=== PATIENT | male | born 1955 | race Caucasian/White ===

== ENCOUNTER 2017-11-16 20:18 | Observation (INO) | payer OTHER, MEDICAID, SELFPAY ==
[2017-11-16] VITALS (7 sets, daily range): BP systolic 111–137; BP diastolic 59–79; PULSE 71–80; RESP 12–16; TEMP 36.6–36.9; O2SAT 94–97; BMI 22.5; BMI 21.8
--- NOTE | 2017-11-16 20:44 | DI.RAD.S_ITS ---
PROCEDURE: XR CHEST 1V INDICATIONS: CP TECHNIQUE: One view of the chest was acquired. COMPARISON: [facility], , CHEST 1 VIEW, 12/24/2016, 19:14. FINDINGS: Surgical changes and devices: None. Lungs and pleura: No pleural effusions or pneumothorax. Lungs are clear. Mediastinum: Mediastinal contours appear normal. Heart size is normal. Bones and chest wall: No suspicious bony lesions. Overlying soft tissues appear unremarkable. IMPRESSION: No acute process. Dictated by: Bebo Serna M.D. on 11/16/2017 at 20:59 Approved by: Bebo Serna M.D. on 11/16/2017 at 21:03
[2017-11-16 20:51] LABS: Add Manual Diff / Slide Review NO; Eosinophils Percent Auto 3.2 % (2-4); Hematocrit 31.8 % (41-53); Hemoglobin 10.8 g/dL (13.5-17.5); Lymphocytes Percent Auto 13.2 % (25-40); Mean Corpuscular HGB Conc 34.1 % (30-36); Mean Corpuscular Hemoglobin 36.7 PG (26-34); Mean Corpuscular Volume 107.7 fL (80-100); Monocytes Percent Auto 14.7 % (3-14); Neutrophils Absolute Auto 5000 /uL (3000-5900); Neutrophils Percent Auto 66.9 % (50-75); Platelet Count 192 X10^3/uL (150-400); Red Blood Cell Count 2.95 X10^6/uL (4.5-5.9); Red Cell Distribution Width 15.1 % (11.6-14.8); White Blood Cell Count 7.5 X10^3/uL (4.5-11.0)
[2017-11-16] MEDS: SODIUM CHLORIDE 0.9% 1,000 ML 150 ML IV (21:00)
[2017-11-16 21:02] LABS: Alanine Aminotransferase 39 IU/L (21-72); Albumin 3.8 g/dL (3.5-5.0); Albumin Globulin Ratio 1.3 (1.0-2.8); Alkaline Phosphatase 188 U/L (38-126); Aspartate Aminotransferase 93 IU/L (17-59); BUN Creatinine Ratio 15.7 (6-22); Bilirubin Total 0.7 mg/dL (0.2-1.3); Blood Urea Nitrogen 11 mg/dL (9-20); Calcium 8.6 mg/dL (8.4-10.2); Carbon Dioxide 23 mmol/L (22-32); Chloride 106 mmol/L (98-107); Creatine Kinase 49 U/L (55-170); Estimated Glomerular Filt Rate > 60.0 mL/min (>60); Globulin 2.9 g/dL (1.7-4.1); Glucose 143 mg/dL (80-110); HEMOLYSIS < 15 (0-50); Lipase 350 U/L (23-300); Sodium 144 mmol/L (137-145); Total Protein 6.7 g/dL (6.3-8.2)
--- NOTE | 2017-11-16 21:02 | ED.CHESTPAIN ---
HPI - Chest Pain General Chief Complaint: Chest Pain Stated Complaint: chest pain Time Seen by Provider: 11/16/17 20:25 Source: patient and EMS Mode of arrival: EMS Limitations: no limitations History of Present Illness HPI narrative: Patient states that he began to have the chest pain while watching TV. He states the pain was left-sided and radiated down his left arm. It was associated with nausea, shortness of breath, and diaphoresis. He states he left his nitroglycerin and his 's car, and she did not get home for an hour and a half. Patient states that when she did get home he took 2 of his nitroglycerin, and it did not do any good. However, when the medics arrived, he took a spray of nitroglycerin from them and the pain immediately resolved. Patient states that now he is pain free. He states this has happened previously, and his own nitroglycerin did not work, but his pain resolved with a spray of nitroglycerin from the medics. He states he does have a history of coronary artery disease, but has never had an IA or stenting. 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 Related Data Home Medications Medication Instructions Recorded Confirmed ferrous sulfate [Iron (ferrous 325 mg PO BID #0 06/25/16 11/16/17 sulfate)] aspirin 324 mg PO QDAY #0 12/24/16 11/16/17 Previous Rx's Medication Instructions Recorded omeprazole 20 mg PO QDAY #30 tab 08/17/16 isosorbide mononitrate ER 30 mg 30 mg PO QAM #90 tab 07/22/17 tablet,extended release 24 hr nitroglycerin 0.4 mg sublingual 0.4 mg SUBLINGUAL Q DAY PRN PRN 07/29/17 tablet #30 tab spironolactone 100 mg tablet 100 mg PO Q DAY #30 tab 11/04/17 atorvastatin 40 mg tablet 40 mg PO HS #30 tab 11/15/17 metoprolol tartrate 50 mg tablet 50 mg PO BID #60 tab 11/15/17 ipratropium-albuterol [Combivent 1 puff INHALATION QID #4 gram 11/17/17 Respimat] Allergies Allergy/AdvReac Type Severity Reaction Status Date / Time No Known Drug Allergies Allergy Verified 11/15/17 14:31 Review of Systems Review of Systems All systems reviewed & are unremarkable except as noted in HPI and below Constitutional Denies chills, Denies fever(s), Denies lethargy and Denies weakness Comments: Diaphoresis Eyes Denies change in vision, Denies eye discharge, Denies irritation and Denies loss of vision ENT Ears, Nose, Mouth, and Throat: Denies change in voice, Denies neck pain and Denies sore throat Cardiovascular Reports chest pain, Denies irregular heart rhythm, Denies lightheadedness, Denies palpitations, Reports dyspnea, Denies dyspnea on exertion and Denies orthopnea Respiratory Denies cough, Reports dyspnea, Denies dyspnea on exertion and Denies wheezing Gastrointestinal Gastrointestinal: Denies abdominal pain, Denies change in bowel habits, Denies diarrhea, Reports nausea and Denies vomiting Genitourinary Denies hematuria, Denies flank pain, Denies urinary incontinence and Denies urinary urgency Musculoskeletal Denies neck pain Integumentary/Breasts Denies pruritus, Denies erythema, Denies rash and Denies wounds Neurologic Denies confusion, Denies loss of vision and Denies weakness Psychiatric Denies anxiety, Denies confusion, Denies depression, Denies homicidal ideation and Denies suicidal ideation Endocrine Denies palpitations Hematologic/Lymphatic Denies easy bruising Allergic/Immunologic Denies wheezing [facility] Medical History Right shoulder pain (Chronic) Hyperlipidemia (Chronic) Essential hypertension (01/03/15) Gastroesophageal reflux disease (01/03/15) Alcoholic cirrhosis of liver with ascites (01/03/15) Coronary artery disease involving [place] coronary artery of [place] heart with unstable angina pectoris (01/03/15) Esophageal varices in alcoholic cirrhosis (01/03/15) Chronic alcoholic gastritis with hemorrhage (08/17/16) Alcohol abuse (Chronic) Coronary artery disease (Chronic) Duodenal ulcer (Chronic) GERD (gastroesophageal reflux disease) (Chronic) Hepatic cirrhosis (Chronic) Anemia (Resolved) Bleeding esophageal varices (Resolved 12/2014) Upper GI bleed (Resolved 12/2014) Surgical History Hx of cardiac catheterization (Resolved 12/2014) Social History household members: spouse Smoking Status: Current every day smoker alcohol intake: current substance use type: marijuana Exam Initial Vital Signs Initial Vital Signs: Vital Signs Temperature 98.4 F 11/16/17 20:24 Pulse Rate 80 11/16/17 20:24 Respiratory Rate 12 11/16/17 20:24 Blood Pressure 137/79 11/16/17 20:24 Pulse Oximetry 97 11/16/17 20:24 Const General: cooperative and well developed Nutritional Appearance: well nourished Orientation: alert, awake, oriented x3 and not confused HENOH Head: normocephalic and atraumatic Ears: external ears normal Nose: external nose normal and No nasal discharge Face and sinus: face symmetric and No dry mucous membranes Mouth: oral mucosae normal and moist mucous membranes Eyes General: appearance normal, both eyes and all related structures Eyelids: eyelids normal Conjunctivae: conjunctivae normal Sclera: sclerae normal Pupils: PERRL EOM: EOM intact bilaterally Neck Neck: normal visual inspection, trachea midline, No lymphadenopathy, No midline deformity and No JVD Lymphatic: No lymphedema Chest Chest: normal inspection of the chest Resp Effort & Inspection: normal respiratory effort, able to speak in complete sentences, no respiratory distress and no use of accessory muscles Auscultation: clear to auscultation bilaterally, no rales, no rhonchi and no wheezes Cardio Rate: regular rate Rhythm: regular rhythm Heart Sounds: no click, no gallops, no murmurs and no rubs Pulses: normal peripheral pulses GI Inspection: non-distended Palpation: soft, no hepatosplenomegaly, No guarding, No pulsatile mass and No tender Auscultation: normal bowel sounds Back/Spine/Pelvis Back: No CVA tenderness Cervical Spine: cervical ROM normal and No pain with cervical ROM Thoracic/Lumbar Spine: thoracic and lumbar spine normal to inspection Skin General: no rashes or lesions noted, No jaundice and No petechiae Neuro General: alert, oriented x3, gait normal and no focal motor deficits Speech: speech normal Extrem General: full ROM, no clubbing, cyanosis or edema, no pedal edema and no calf tenderness Psych Appearance: well kempt Mental Status: mental status grossly normal Attitude: cooperative Thought Content: normal and suicidality Judgment: judgment good Course Course Narrative: Patient's presentation was concerning for a coronary event, and even though he had a history of angina and did respond to nitroglycerin, I was concerned that he did not have access to his nitroglycerin for 90 min, and his symptoms were ongoing. I did work him up, and workup was found to be negative initially. However, I did feel he should be admitted to the hospital for completion of cardiac rule out. As such, I did speak with the hospitalist, who agreed to admit the patient to his service. Orders Ordered: Discontinued Medications Acetaminophen (Tylenol) 650 mg PO Q6HR PRN PRN Reason: As Needed for Fever/Mild Pain Albuterol (Ventolin) 2.5 mg INH NOW ONE Stop: 11/17/17 17:07 Last Admin: 11/17/17 17:29 Dose: 2.5 mg Aspirin (Aspirin Chew) 324 mg PO NOW ONE Stop: 11/16/17 20:45 Last Admin: 11/16/17 21:06 Dose: Aspirin (Aspirin Ec) 325 mg PO DAILY [facility] Last Admin: 11/17/17 08:25 Dose: 325 mg Atorvastatin Calcium (Lipitor) 40 mg PO BEDTIME [facility] Bisacodyl (Dulcolax) 10 mg MS DAILY PRN PRN Reason: Constipation Enoxaparin Sodium (Lovenox) 40 mg SUBCUT DAILY [facility] Last Admin: 11/17/17 08:25 Dose: 40 mg Sodium Chloride (Normal Saline 0.9%) 1,000 mls @ 150 mls/hr IV CONT [facility] Stop: 11/17/17 00:02 Last Admin: 11/16/17 21:00 Dose: 150 mls/hr Sodium Chloride (Normal Saline 0.9%) 1,000 mls @ 100 mls/hr IV CONT [facility] Last Admin: 11/16/17 23:56 Dose: 100 mls/hr Isosorbide Mononitrate (Imdur) 30 mg PO DAILY [facility] Metoprolol Tartrate (Lopressor) 50 mg PO BID MAREK Nitroglycerin (Nitro-Bid) 1 inch TOP TID [facility] Last Admin: 11/17/17 17:29 Dose: Not Given Admin: 11/17/17 08:25 Dose: 1 inch Admin: 11/16/17 23:56 Dose: 1 inch Nitroglycerin (Nitrostat) 0.4 mg SL [id number] PRN PRN Reason: Chest Pain Non-Formulary Medication (Patient's Own Medication) 0 each PO DAILY [facility] Ondansetron HCl (Zofran Odt) 4 mg PO Q8HR PRN PRN Reason: Nausea And Vomiting Ondansetron HCl (Zofran) 4 mg IV Q8HR PRN PRN Reason: Nausea And Vomiting Pantoprazole Sodium (Protonix) 40 mg PO 0700 [facility] Last Admin: 11/17/17 09:37 Dose: Pantoprazole Sodium (Protonix) 40 mg PO 0600 [facility] Last Admin: 11/17/17 09:31 Dose: 40 mg Spironolactone (Aldactone) 100 mg PO DAILY [facility] Vital Signs - 8 hr 11/16/17 20:24 11/16/17 20:26 Temperature 98.4 F 98.4 F Pulse Rate 80 80 Respiratory Rate 12 12 Blood Pressure 136/79 Blood Pressure [Left Arm] 137/79 Pulse Oximetry 97 97 MDM - Chest Pain Medical Records Data Attestation: I reviewed the patient's medical records. Lab Data Attestation: I reviewed the patient's lab results. Result diagrams: 11/16/17 Unknown 11/16/17 Unknown Lab Results 11/16/17 11/16/17 11/17/17 Range/Units Unknown Unknown 05:00 WBC 7.5 (4.5-11.0) X10^3/uL RBC 2.95 L (4.5-5.9) X10^6/uL Hgb 10.8 L (13.5-17.5) g/dL Hct 31.8 L (41-53) % MCV 107.7 H (80-100) fL MCH 36.7 H (26-34) PG MCHC 34.1 (30-36) % RDW 15.1 H (11.6-14.8) % Plt Count 192 (150-400) X10^3/uL Neut % (Auto) 66.9 (50-75) % Lymph % (Auto) 13.2 L (25-40) % [place] % (Auto) 14.7 H (3-14) % Eos % (Auto) 3.2 (2-4) % Baso % (Auto) 2.0 (0-2) % Neut # (Auto) 5000 (7870-4293) /uL Sodium 144 (137-145) mmol/L Potassium 4.0 (3.4-5.1) mmol/L Chloride 106 (98-107) mmol/L Carbon Dioxide 23 (22-32) mmol/L BUN 11 (9-20) mg/dL Creatinine 0.70 (0.66-1.25) mg/dL Estimated GFR > 60.0 (>60) mL/min BUN/Creatinine Ratio 15.7 (6-22) Glucose 143 H (80-110) mg/dL Calcium 8.6 (8.4-10.2) mg/dL Total Bilirubin 0.7 (0.2-1.3) mg/dL AST 93 H (17-59) IU/L ALT 39 (21-72) IU/L Alkaline Phosphatase 188 H (38-126) U/L Total Creatine Kinase 49 L 40 L (55-170) U/L Troponin I < 0.012 < 0.012 (0.01-0.034) ng/mL Total Protein 6.7 (6.3-8.2) g/dL Albumin 3.8 (3.5-5.0) g/dL Globulin 2.9 (1.7-4.1) g/dL Albumin/Globulin Ratio 1.3 (1.0-2.8) Lipase 350 H (23-300) U/L Imaging Data Chest x-ray: Attestation: I personally reviewed and interpreted this imaging study as follows: My impression: negative Radiologist's impression: PROCEDURE: XR CHEST 1V INDICATIONS: CP TECHNIQUE: One view of the chest was acquired. COMPARISON: [facility], CHEST 1 VIEW, 12/24/2016, 19:14. FINDINGS: Surgical changes and devices: None. Lungs and pleura: No pleural effusions or pneumothorax. Lungs are clear. Mediastinum: Mediastinal contours appear normal. Heart size is normal. Bones and chest wall: No suspicious bony lesions. Overlying soft tissues appear unremarkable. IMPRESSION: No acute process. Dictated by: Bebo Serna M.D. on 11/16/2017 at 20:59 Approved by: Bebo Serna M.D. on 11/16/2017 at 21:03 ECG Data Attestation: I personally reviewed and interpreted this ECG as follows: ( see below) Prior ECG tracings: not available for review Interpretation: 12 lead EKG performed on November 16, 2017 at 8:23 p.m.: Regular ventricular rhythm with a rate of 79 beats per min MS interval 169 milliseconds QRS duration 105 milliseconds QTC interval 460 milliseconds axis normal interpretation: Normal sinus rhythm, possible inferior myocardial infarction, probably old; borderline EKG interpreted by ED MD Discharge Plan Departure Patient Disposition: Admitted as Observation Clinical Impression: Chest pain Discharge Date/Time: 11/16/17 22:30 Interventions: ED Discharge Assessment Last Done: 11/16/17 22:30 Admit Date/Time: 11/16/17 22:15 Admit Provider: Pedro Pablo Briones
[2017-11-16 21:13] LABS: Troponin I < 0.012 ng/mL (0.01-0.034)
--- NOTE | 2017-11-16 23:22 | P.HP_ITS ---
History of Present Illness Date Patient Seen: 11/16/17 Time Patient Seen: 23:12 Chief complaint: chest pain Narrative: Patient is a 62 years of age male who notes the onset of chest pain at rest while watching TV. Patient notes the chest pain is in left upper chest region. A gripping chest tightness type sensation. Severity 6/10 was noted. No radiation of the pain to his jaw or his shoulder his arm. No associated nausea. No diaphoresis. Patient came to the emergency room for further eval. One spray of nitro appear to have addressed his discomfort fairly readily. Patient has prior history of atherosclerotic heart disease as noted by cardiac catheterization 4 years ago. Since that time patient has continued to smoke cigarettes. Patient also with history of cirrhosis of the liver and continues to drink alcohol. Patient History Comment: SOCIAL HISTORY PATIENT WAS WITH SIGNIFICANT OTHER. PATIENT HAS BEEN AN ACTIVE CIGARETTE SMOKER FOR THE PAST 50 YEARS. CONTINUES TO SMOKE DRINK ALCOHOL THOUGH AWARE HE HAS CIRRHOSIS OF THE LIVER SURGICAL HISTORY NO MAJOR SURGERY NOTED FAMILY HISTORY NO EARLY HEART DISEASE IN 1ST DEGREE RELATIVES Family & Social History Social History: household members spouse Prior Living Arrangements House Safety & Behavioral: Feels Safe in Current Yes Environment Been Physically Hurt or No Threatened By a Person Suicidal Ideation Description None Suicide Plan Description No Plan Tobacco & Substance use: Tobacco type cigarettes,cannabis/marijuana Smoking Status Current every day smoker alcohol intake current alcohol intake frequency 3 or more drinks per day Substance Use Type marijuana Meds Home Medications Medication Instructions Recorded Confirmed Type ferrous sulfate [Iron (ferrous 325 mg PO BID #0 06/25/16 11/15/17 History sulfate)] omeprazole 20 mg PO QDAY #30 tab 08/17/16 11/15/17 Rx aspirin 81 mg PO QDAY #0 12/24/16 11/15/17 History isosorbide mononitrate ER 30 mg 30 mg PO QAM #90 tab 07/22/17 11/16/17 Rx tablet,extended release 24 hr nitroglycerin 0.4 mg sublingual 0.4 mg SUBLINGUAL Q DAY PRN PRN 07/29/17 Rx tablet #30 tab spironolactone 100 mg tablet 100 mg PO Q DAY #30 tab 11/04/17 11/16/17 Rx atorvastatin 40 mg tablet 40 mg PO HS #30 tab 11/15/17 11/16/17 Rx metoprolol tartrate 50 mg tablet 50 mg PO BID #60 tab 11/15/17 11/16/17 Rx Allergies Allergy/AdvReac Type Severity Reaction Status Date / Time No Known Drug Allergies Allergy Verified 11/15/17 14:31 Review of Systems Review of Systems A 10 POINT SYSTEM REVIEWED WITH PATIENT IS ESSENTIALLY NEGATIVE EXCEPT FOR THE SYMPTOMS DESCRIBED IN HPI. PATIENT WITH A LEFT-SIDED UPPER CHEST DISCOMFORT WITHOUT RADIATION. NO ASSOCIATED OTHER SYMPTOMS NOTED. Exam Vital Signs (past 8 hours): - 11/16/17 20:24 11/16/17 20:26 11/16/17 21:00 Temperature 98.4 F 98.4 F 98.4 F Pulse Rate 80 80 74 Respiratory Rate 12 12 13 Blood Pressure 136/79 136/79 Blood Pressure [Left Arm] 137/79 111/59 L Pulse Oximetry 97 97 94 11/16/17 21:15 11/16/17 22:00 Temperature Pulse Rate 73 78 Respiratory Rate 14 16 Blood Pressure Blood Pressure [Left Arm] 119/76 122/79 Pulse Oximetry 95 95 Oxygen Delivery Method Room Air Narrative Exam Narrative: GENERAL APPEARANCE PATIENT HAS NOTED AWAKE AND ALERT NO APPARENT DISTRESS AT REST PSYCHIATRIC FOR INTERVAL TO TIME PLACE AND PERSON BUT IS COOPERATIVE AFFECT IS APPROPRIATE SKIN DRY ATROPHIC NONJAUNDICED NO LESIONS NOTED EYES PUPILS ARE EQUAL ROUND AND REACTIVE TO LIGHT EARS NOSE AND THROAT HEARING IS GROSSLY INTACT NOSE SEPTUM TO MIDLINE NO BLEEDING NO OROPHARYNGEAL LESIONS RESPIRATORY FAIRLY CLEAR TO AUSCULTATION NO WHEEZES NO CRACKLES CARDIOVASCULAR IRREGULAR IN RATE AND RHYTHM NORMAL S1-S2 NO MURMUR RUBS OR GALLOPS PMI NONDISPLACED PULSES +3 TO EXTREMITIES GASTROINTESTINAL NONTENDER POSITIVE BOWEL SOUNDS NO DISTENSION NO GUARDING NO BRUITS NEUROLOGIC NO FOCAL NEUROLOGIC CHANGES CRANIAL NERVES 2-12 GROSSLY INTACT LYMPHATICS NO LYMPHADENOPATHY TO NECK OR AXILLA Objective Labs Result Diagrams: 11/16/17 Unknown 11/16/17 Unknown Labs: Laboratory Results - last 24 hr 11/16/17 11/16/17 Unknown Unknown WBC 7.5 RBC 2.95 L Hgb 10.8 L Hct 31.8 L MCV 107.7 H MCH 36.7 H MCHC 34.1 RDW 15.1 H Plt Count 192 Neut % (Auto) 66.9 Lymph % (Auto) 13.2 L [place] % (Auto) 14.7 H Eos % (Auto) 3.2 Baso % (Auto) 2.0 Neut # (Auto) 5000 Sodium 144 Potassium 4.0 Chloride 106 Carbon Dioxide 23 BUN 11 Creatinine 0.70 Estimated GFR > 60.0 BUN/Creatinine Ratio 15.7 Glucose 143 H Calcium 8.6 Total Bilirubin 0.7 AST 93 H ALT 39 Alkaline Phosphatase 188 H Total Creatine Kinase 49 L Troponin I < 0.012 Total Protein 6.7 Albumin 3.8 Globulin 2.9 Albumin/Globulin Ratio 1.3 Lipase 350 H Assessment & Plan Plan: Assessment/Plan Narrative: 1. ATYPICAL CHEST PAIN WILL CONTINUE WITH CARDIAC ENZYMES Q.6 HOURS. REPEAT EKG IN A.M.. WILL TRY TO CONTACT PATIENT'S RESIDENTIAL WORKER DR. DEVINE PERHAPS A DESIGNATED RESIDENTIAL WORKER COVERING. WILL PROVIDE NITRO PASTE 1 IN TOPICALLY Q.6 HOURS. ASPIRIN CONTINUE TO 325 MG DAILY. 2. HISTORY OF ATHEROSCLEROTIC HEART DISEASE THIS WAS NOTED BY CARDIAC CATHETERIZATION 4 YEARS AGO. CONTINUE CARDIAC MEDS TOLERATED 3. HISTORY OF SMOKING NICOTINE PATCH TOLERATED 4. CONTINUED ALCOHOL CONSUMPTION PATIENT AWARE OF THE DANGERS POSED WITH HISTORY OF CIRRHOSIS 5. CIRRHOSIS OF THE LIVER STABLE. NOTE HISTORY OF EAR STILL BLEEDS IN THE PAST. 6. OTHER PAST MEDICAL HISTORY IS FOLLOW HISTORY OF HYPERTENSION HYPERLIPIDEMIA GASTROESOPHAGEAL REFLUX DISEASE WILL CONTINUE HIS HOME MEDS TOLERATED Time Spent With Patient Time with patient: Greater than 35 minutes (55 MIN) Quality VTE Deep Vein Thrombosis/Pulmonary Embolism Present on Admission: No
[2017-11-16] MEDS: SODIUM CHLORIDE 0.9% 1,000 ML 100 ML IV (23:56)
[2017-11-16] MEDS: NITROGLYCERIN OINT 1 INCH/GM OINT...G. TOP (23:56)
[2017-11-17 00:08] VITALS: O2SAT 95
--- NOTE | 2017-11-17 00:14 | PC.NURSE ---
Addendum entered by Ivette Uribe R.N. 11/17/17 06:36: Slept most of night. Continues to deny any pain. Telemetry showing SR. Troponin negative this morning. Voided 300cc dark marli urine and UA sent as per ER MD order. Original Note: Patient is alert and oriented. Breath sounds CTA with RA sat of 95%. HRR; on telemetry and was SR on 0000 reading. Denies nausea. BT present and abdomen is soft. Denies dysuria, frequency, urgency or incontinence; provided urinal to use at bedside and informed of need to obtain UA. Independent with bed mobility. Has abrasion on right elbow. Fall risk score is moderate but agreeable to calling for assistance so bed alarm is not activated at this time. Denies any pain.
[2017-11-17 04:37] VITALS: BP 120/81; PULSE 65; RESP 17; TEMP 36.9; O2SAT 95
[2017-11-17 05:45] LABS: Creatine Kinase 40 U/L (55-170)
[2017-11-17 05:59] LABS: Troponin I < 0.012 ng/mL (0.01-0.034)
[2017-11-17 07:00] VITALS: O2SAT 95
[2017-11-17 07:20] VITALS: BP 118/64; PULSE 62; RESP 16; TEMP 36.7; O2SAT 95
[2017-11-17] MEDS: NITROGLYCERIN OINT 1 INCH/GM OINT...G. TOP (08:25)
[2017-11-17] MEDS: ASPIRIN EC 325 MG TABLET PO (08:25)
[2017-11-17] MEDS: ENOXAPARIN 40 MG/0.4 ML SYRINGE SUBCUT (08:25)
--- NOTE | 2017-11-17 08:33 | CM.DANOTE ---
DCP: Case received, EMR reviewed and met with patient. Introduced self and role. DCP template completee with information currently available. Patient is a 62 year old male who admitted yesterday evening to the care of the hospitalist team. PCP: Dr. Velazco. Payer: confirmed: byyd/Medicaid. Patient came to hospital with symptoms of chest pain. Patient stated that he has had this before. Carries diagnosis of cirrosis of the liver. Patient is also a smoker and drinks alcohol. Patient alert, lives with his , is independent, but stated that he does not drive. Is having cardiac enzyme work up today. P: Patient plans to return home when stable. Flavia Harvey RN/[employer]er
[2017-11-17] MEDS: PANTOPRAZOLE 40 MG TABLET PO (09:31)
[2017-11-17 16:11] VITALS: BP 118/88; PULSE 78; RESP 16; TEMP 36.9; O2SAT 97
[2017-11-17 17:00] VITALS: O2SAT 96
--- NOTE | 2017-11-17 17:08 | PC.NURSE ---
Respiratory completed eval/treat and spoke with MD. Going to try using an inhaler and another walk, then possibly D/C. Pt already up/anxious to leave. Dressed self and ready to go home and take a shower.
[2017-11-17] MEDS: ALBUTEROL 2.5 MG/3 ML NEB (ADULT) INH (17:29)
--- NOTE | 2017-11-17 19:26 | P.DS_ITS ---
History of Present Illness Date Patient Seen: 11/17/17 Time Patient Seen: 19:21 Chief complaint: chest pain Narrative: Patient is a 62 years of age male who notes the onset of chest pain at rest while watching TV. Patient notes the chest pain is in left upper chest region. A gripping chest tightness type sensation. Severity 6/10 was noted. No radiation of the pain to his jaw or his shoulder his arm. No associated nausea. No diaphoresis. Patient came to the emergency room for further eval. One spray of nitro appear to have addressed his discomfort fairly readily. Patient has prior history of atherosclerotic heart disease as noted by cardiac catheterization 4 years ago. Since that time patient has continued to smoke cigarettes. Patient also with history of cirrhosis of the liver and continues to drink alcohol. Discharge Providers Date of admission: 11/16/17 22:15 Primary care physician: Osvaldo Velazco MD Consults: 11/17/17 11:59 Consult to Respiratory Therapy Evaluate & Treat Comment: eval while ambulating for O2 needs if any Physician Instructions: Evaluate and treat Discharge provider: Pedro Pablo Briones MD Summary Discharge Diagnosis: 1. ATYPICAL CHEST PAIN 2. 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 ATHEROSCLEROTIC HEART DISEASE 4. CONTINUED SMOKER ADDICTION 5. CIRRHOSIS OF THE LIVER 6. CONTINUED ALCOHOL CONSUMPTION Hospital Course: PATIENT IS A 62 YEARS OF AGE MALE THAT NOTES THE ONSET OF CHEST PAIN AT REST WHILE HE IS WATCHING TV AND DRINKING A BEER. PATIENT CAME TO THE ER SEEKING FURTHER EVAL. PATIENT HAS HAD CARDIAC CATHETERIZATION 4 YEARS AGO THAT INDICATED 50% GENERALIZED ATHEROSCLEROTIC HEART DISEASE. BUT A YEAR AGO HAD A STRESS TEST WAS NOT MADE AWARE OF ANY SIGNIFICANT FINDINGS. PATIENT NOTES HE HAS CONTINUED TO SMOKE CIGARETTES THOUGH NOT FREQUENTLY AND HE DRINKS BEER BUT NOT OFTEN. HE IS AWARE OF HIS ATHEROSCLEROTIC HEART DISEASE AND HIS CIRRHOSIS OF THE LIVER. DURING HOSPITAL COURSE CARDIAC ENZYMES WERE SERIALLY DONE AND WERE NEGATIVE. NO SIGNIFICANT FINDINGS ON EKG WERE NOTED. PATIENT WAS WALKED BY RESPIRATORY THERAPY WHO NOTED PATIENT WITH SYMPTOMS SUGGESTIVE FOR REACTIVE AIRWAY DISEASE. RT TRIED A NEBULIZER WITH ALBUTEROL AND THIS ALSO SEEMED TO INCITE PATIENT EVEN FURTHER WHEN HE TRIED TO WALK AFTERWARDS. RESPIRATORY THERAPY RECOMMENDED PATIENT UNDERGO PULMONARY FUNCTION TEST IN OUTPATIENT SETTING CLOSE FOLLOW-UP. IN THE MEANTIME WILL DISCHARGE PATIENT HOME WITH COMBIVENT WHICH HAS SOME ADDITIONAL STEROID EFFECT LOCAL TO THE LUNG. Status at Discharge Cognitive/behavioral status at discharge: AWAKE AND ALERT WELL ORIENTED NO APPARENT DISTRESS Functional status at discharge: independent ambulation Time Spent with Patient Greater than 30 minutes (40 MIN) Exam Vital Signs (past 8 hours): - 11/17/17 16:11 11/17/17 17:00 Temperature 98.4 F Pulse Rate 78 Respiratory Rate 16 Blood Pressure 118/88 Pulse Oximetry 97 96 Oxygen Delivery Method Room Air Oxygen Flow Rate 0 Narrative Exam Narrative: GENERAL APPEARANCE AWAKE AND ALERT NO APPARENT DISTRESS RESPIRATORY FAIR BREATH SOUNDS ARE NOTED BILATERALLY NO WHEEZES NO CRACKLES AT REST CARDIOVASCULAR REGULAR RATE RHYTHM NO MURMURS NOTED PMI NONDISPLACED PULSES +3 TO EXTREMITIES GASTROINTESTINAL SOFT NONTENDER POSITIVE BOWEL SOUNDS NO MASSES +3 PULSES TO EXTREMITIES Objective Labs Result Diagrams: 11/16/17 Unknown 11/16/17 Unknown Labs: Laboratory Results - last 24 hr 11/16/17 11/16/17 11/17/17 Unknown Unknown 05:00 WBC 7.5 RBC 2.95 L Hgb 10.8 L Hct 31.8 L MCV 107.7 H MCH 36.7 H MCHC 34.1 RDW 15.1 H Plt Count 192 Neut % (Auto) 66.9 Lymph % (Auto) 13.2 L [place] % (Auto) 14.7 H Eos % (Auto) 3.2 Baso % (Auto) 2.0 Neut # (Auto) 5000 Sodium 144 Potassium 4.0 Chloride 106 Carbon Dioxide 23 BUN 11 Creatinine 0.70 Estimated GFR > 60.0 BUN/Creatinine Ratio 15.7 Glucose 143 H Calcium 8.6 Total Bilirubin 0.7 AST 93 H ALT 39 Alkaline Phosphatase 188 H Total Creatine Kinase 49 L 40 L Troponin I < 0.012 < 0.012 Total Protein 6.7 Albumin 3.8 Globulin 2.9 Albumin/Globulin Ratio 1.3 Lipase 350 H Discharge Plan Discharge Plan Patient Disposition: Home Discharge Med Rec/Prescriptions Prescriptions: New ipratropium-albuterol [Combivent Respimat] 20-100 mcg/actuation mist 1 puff INHALATION QID Qty: 4 RF: 2 Continue atorvastatin 40 mg tablet 40 mg PO HS Qty: 30 RF: 11 metoprolol tartrate 50 mg tablet 50 mg PO BID Qty: 60 RF: 11 ferrous sulfate [Iron (ferrous sulfate)] 325 MG tablet 325 mg PO BID Qty: 0 RF: 0 omeprazole 20 MG tablet,delayed release (DR/EC) 20 mg PO QDAY Qty: 30 RF: 11 aspirin 81 MG tablet,delayed release (DR/EC) 324 mg PO QDAY Qty: 0 RF: 0 isosorbide mononitrate 30 mg tablet extended release 24 hr 30 mg PO QAM Qty: 90 RF: 3 nitroglycerin [Nitrostat] 0.4 mg tablet, sublingual 0.4 mg Sublingual Q DAY PRN PRN (Reason: chest pain) Qty: 30 RF: 3 spironolactone 100 mg tablet 100 mg PO Q DAY Qty: 30 RF: 0 Provider Discharge Instructions Diet: Diet as Tolerated Discharge Data Primary Care Provider: Osvaldo Velazco Attending Provider: Pedro Pablo Briones Admit Date/Time: 11/16/17 22:15 Quality VTE Deep Vein Thrombosis/Pulmonary Embolism Present on Admission: No
--- NOTE | 2017-11-17 19:35 | PC.NURSE ---
Pt discharged. Meds retrieved from pharmacy. All belongings with patient. Pt denies further questions. Anxious to leave. IV and tele D/C'd. [employer] called for pt pickup. RX given/copy taken.
== END 2017-11-17 19:36 | disposition home or self-care (01) ==
LOC: ED 20:25 → AC 22:16
PROVIDERS: Admitting Provider Internal Medicine; Emergency Provider Emergency Medicine; Family Provider Family Medicine; PCP Family Medicine; Visit Provider Internal Medicine
DX: R07.9 Chest pain, unspecified (principal); I25.10 Atherosclerotic heart disease of native coronary artery without angina pectoris; F17.210 Nicotine dependence, cigarettes, uncomplicated; K74.60 Unspecified cirrhosis of liver
CPT/HCPCS: 71045; 80053; 82550; 82553; 83690; 84484; 85025; 93005; 93010; 96360; 96372; 99283; 99285; 99406; G0378; J1650; J7613

== ENCOUNTER → 2017-11-21 11:47 | Outpatient (CLI) | payer OTHER, MEDICAID, SELFPAY ==
[2017-11-16 22:21] VITALS: BMI 21.8
[2017-11-21 12:36] LABS: Add Manual Diff / Slide Review NO; Basophils Percent Auto 2.2 % (0-2); Eosinophils Percent Auto 5.9 % (2-4); Hematocrit 31.2 % (41-53); Hemoglobin 10.6 g/dL (13.5-17.5); Lymphocytes Percent Auto 5.6 % (25-40); Mean Corpuscular Hemoglobin 36.9 PG (26-34); Mean Corpuscular Volume 108.4 fL (80-100); Neutrophils Absolute Auto 4300 /uL (3000-5900); Neutrophils Percent Auto 71.3 % (50-75); Platelet Count 193 X10^3/uL (150-400); Red Blood Cell Count 2.88 X10^6/uL (4.5-5.9); Red Cell Distribution Width 15.4 % (11.6-14.8)
[2017-11-21 12:48] LABS: Alanine Aminotransferase 36 IU/L (21-72); Albumin 3.5 g/dL (3.5-5.0); Albumin Globulin Ratio 1.2 (1.0-2.8); Alkaline Phosphatase 172 U/L (38-126); Aspartate Aminotransferase 65 IU/L (17-59); BUN Creatinine Ratio 8.6 (6-22); Bilirubin Total 0.8 mg/dL (0.2-1.3); Blood Urea Nitrogen 6 mg/dL (9-20); Calcium 8.8 mg/dL (8.4-10.2); Carbon Dioxide 28 mmol/L (22-32); Chloride 108 mmol/L (98-107); Cholesterol 81 mg/dL (140-199); Estimated Glomerular Filt Rate > 60.0 mL/min (>60); Glucose 97 mg/dL (80-110); HDL Cholesterol 36 mg/dL (40-60); HEMOLYSIS < 15 (0-50); LDL Cholesterol Calculated 36 mg/dL (<100); Potassium 4.6 mmol/L (3.4-5.1); Sodium 143 mmol/L (137-145); Total Protein 6.5 g/dL (6.3-8.2); Triglycerides 45 mg/dL (35-150)
== END ==
PROVIDERS: PCP Family Medicine; Visit Provider Family Medicine
DX: Z79.899 Other long term (current) drug therapy (principal); E78.5 Hyperlipidemia, unspecified
CPT/HCPCS: 36415; 80053; 80061; 85025

== ENCOUNTER 2017-12-02 12:04 | Emergency (ER) | payer OTHER, MEDICAID, SELFPAY ==
[2017-11-16 22:21] VITALS: BMI 21.8
[2017-12-02 12:13] VITALS: BP 119/59; PULSE 58; RESP 16; TEMP 36.8; O2SAT 98
--- NOTE | 2017-12-02 12:18 | ED.GIBLEED ---
HPI - GI Bleed General Chief complaint: GI Bleed Stated complaint: DARK STOOL,VOMITING BLOOD Time Seen by Provider: 12/02/17 12:17 Source: patient and family Mode of arrival: ambulatory Limitations: no limitations History of Present Illness HPI Narrative: 62-year-old male with history alcohol abuse and cirrhosis, former smoker presents alone for evaluation of bright red blood in his vomit last night and the passage of dark and tarry stool today. Additionally he feels a bit dizzy and weak and complains of some generalized abdominal pain. He has a history of significant alcohol abuse though he no longer drinks heavily. He has had episodes of upper GI bleed in the past and has been diagnosed with esophageal varices and has hospitalizations at most hospitals in the area that have Gastroenterology. He denies the use of blood thinners but does take a baby aspirin daily. MD complaint: blood streaked emesis and melena Onset (ago): day(s) Pain Consistency: intermittent Severity: moderate Relieving factors: none Exacerbating factors: none Context: history of GI bleed, liver disease, alcohol abuse and known esophageal varices Associated symptoms: abdominal pain, nausea and vomiting Treatments Prior to Arrival: none Related Data Home Medications Medication Instructions Recorded Confirmed ferrous sulfate [Iron (ferrous 325 mg PO BID #0 06/25/16 12/02/17 sulfate)] aspirin 2 tab PO BID #0 12/24/16 12/02/17 Previous Rx's Medication Instructions Recorded omeprazole 20 mg PO QDAY #30 tab 08/17/16 isosorbide mononitrate ER 30 mg 30 mg PO QAM #90 tab 07/22/17 tablet,extended release 24 hr nitroglycerin 0.4 mg sublingual 0.4 mg SUBLINGUAL Q DAY PRN PRN 07/29/17 tablet #30 tab spironolactone 100 mg tablet 100 mg PO Q DAY #30 tab 11/04/17 atorvastatin 40 mg tablet 40 mg PO HS #30 tab 11/15/17 metoprolol tartrate 50 mg tablet 50 mg PO BID #60 tab 11/15/17 ipratropium-albuterol [Combivent 1 puff INHALATION QID #4 gram 11/17/17 Respimat] Allergies Allergy/AdvReac Type Severity Reaction Status Date / Time No Known Drug Allergies Allergy Verified 11/15/17 14:31 Review of Systems Review of Systems All systems reviewed & are unremarkable except as noted in HPI and below Constitutional Denies chills, Denies fever(s), Denies lethargy and Reports weakness Eyes Denies change in vision, Denies eye discharge, Denies irritation and Denies loss of vision ENT Ears, Nose, Mouth, and Throat: Denies change in voice, Denies neck pain and Denies sore throat Cardiovascular Denies chest pain, Denies irregular heart rhythm, Denies lightheadedness, Denies palpitations, Denies dyspnea, Denies dyspnea on exertion and Denies orthopnea Respiratory Denies cough, Denies dyspnea, Denies dyspnea on exertion and Denies wheezing Gastrointestinal Gastrointestinal: Reports abdominal pain, Reports melena, Denies change in bowel habits, Denies diarrhea, Denies nausea and Denies vomiting Genitourinary Denies hematuria, Denies flank pain, Denies urinary incontinence and Denies urinary urgency Musculoskeletal Denies neck pain Integumentary/Breasts Denies pruritus, Denies erythema, Denies rash and Denies wounds Neurologic Denies confusion, Denies loss of vision and Reports weakness Psychiatric Denies anxiety, Denies confusion, Denies depression, Denies homicidal ideation and Denies suicidal ideation Endocrine Denies palpitations Hematologic/Lymphatic Denies easy bruising Allergic/Immunologic Denies wheezing [facility] Medical History Right shoulder pain (Chronic) Hyperlipidemia (Chronic) Essential hypertension (01/03/15) Gastroesophageal reflux disease (01/03/15) Alcoholic cirrhosis of liver with ascites (01/03/15) Coronary artery disease involving menominee coronary artery of menominee heart with unstable angina pectoris (01/03/15) Esophageal varices in alcoholic cirrhosis (01/03/15) Chronic alcoholic gastritis with hemorrhage (08/17/16) Alcohol abuse (Chronic) Coronary artery disease (Chronic) Duodenal ulcer (Chronic) GERD (gastroesophageal reflux disease) (Chronic) Hepatic cirrhosis (Chronic) Anemia (Resolved) Bleeding esophageal varices (Resolved 12/2014) Upper GI bleed (Resolved 12/2014) Surgical History Hx of cardiac catheterization (Resolved 12/2014) Social History household members: spouse Smoking Status: Current every day smoker alcohol intake: current substance use type: marijuana Exam Narrative Exam Narrative: 62M obviously unwell Initial Vital Signs Initial Vital Signs: Vital Signs Temperature 98.2 F 12/02/17 12:13 Pulse Rate 58 L 12/02/17 12:13 Respiratory Rate 16 12/02/17 12:13 Blood Pressure 119/59 L 12/02/17 12:13 Pulse Oximetry 98 12/02/17 12:13 Const General: cooperative and well developed Nutritional Appearance: well nourished Orientation: alert, awake, oriented x3 and not confused HENAK Head: normocephalic and atraumatic Ears: external ears normal and TM's normal bilaterally Nose: external nose normal and No nasal discharge Face and sinus: sinuses nontender, face symmetric, no sinus tenderness and No dry mucous membranes Mouth: oral mucosae normal and moist mucous membranes Teeth and gingiva: dentition normal Throat: tonsils normal and uvula midline Eyes General: appearance normal, both eyes and all related structures Eyelids: eyelids normal Conjunctivae: conjunctivae normal Sclera: sclerae normal Pupils: PERRL EOM: EOM intact bilaterally Neck Neck: normal visual inspection, trachea midline, No lymphadenopathy, No midline deformity and No JVD Lymphatic: No lymphedema Chest Chest: normal inspection of the chest Resp Effort & Inspection: normal respiratory effort, able to speak in complete sentences, no respiratory distress and no use of accessory muscles Auscultation: clear to auscultation bilaterally, no rales, no rhonchi and no wheezes Cardio Rate: regular rate Rhythm: regular rhythm Heart Sounds: no click, no gallops, no murmurs and no rubs Pulses: normal peripheral pulses GI Inspection: non-distended Palpation: soft, no hepatosplenomegaly, No guarding, No pulsatile mass and tender Auscultation: normal bowel sounds Rectal Exam: heme positive stool Back/Spine/Pelvis Back: No CVA tenderness Cervical Spine: cervical ROM normal and No pain with cervical ROM Thoracic/Lumbar Spine: thoracic and lumbar spine normal to inspection Skin General: no rashes or lesions noted, No jaundice and No petechiae Neuro General: alert, oriented x3, gait normal and no focal motor deficits Speech: speech normal Extrem General: full ROM, no clubbing, cyanosis or edema, no pedal edema and no calf tenderness Psych Appearance: well kempt Mental Status: mental status grossly normal Attitude: cooperative Thought Content: normal and suicidality Judgment: judgment good Course Orders Ordered: ED Orders 12/02/17 12:47 Complete Blood Count AUTO DIFF Stat Comprehensive Metabolic Panel Stat Partial Thromboplastin Time Stat Prothrombin Time INR Stat Type and Screen Stat Pantoprazole Sodium 80 mg/ (Sodium Chloride) 100 mls @ 10 mls/hr IV CONT MAREK Last Admin: 12/02/17 15:01 Dose: 8 mg/hr, 10 mls/hr Octreotide Acetate 500 mcg/ (Sodium Chloride) 101 mls @ 10.1 mls/hr IV CONT MAREK; Protocol Last Admin: 12/02/17 14:59 Dose: 50 mcg/hr, 10.1 mls/hr Discontinued Medications Octreotide Acetate (Sandostatin) 50 mcg IV NOW ONE Stop: 12/02/17 12:20 Last Admin: 12/02/17 13:42 Dose: 50 mcg Ondansetron HCl (Zofran) 4 mg IV NOW ONE Stop: 12/02/17 12:20 Last Admin: 12/02/17 13:38 Dose: 4 mg Pantoprazole Sodium (Protonix) 40 mg IV NOW ONE Stop: 12/02/17 12:20 Last Admin: 12/02/17 13:41 Dose: 40 mg Consultations Consultation #1: Dr. Cervantes (GI at [facility]) is happy to provide consultation when patient is transferred and will likely scope tomorrow, requests admission be to hospitalist. Recommends Octreotide and PPI drips Time: 13:58 Consultation #2: call to [facility] hospitalist Vital Signs - 8 hr 12/02/17 12:13 12/02/17 13:56 12/02/17 15:00 Temperature 98.2 F Pulse Rate 58 L 81 76 Respiratory Rate 16 20 18 Blood Pressure 119/59 L Blood Pressure [Left Arm] 118/61 103/47 L Pulse Oximetry 98 98 97 MDM - GI Bleed Lab Data Result diagrams: 12/02/17 12:47 12/02/17 12:47 Lab Results 12/02/17 12/02/17 12/02/17 Range/Units 12:47 12:47 12:47 WBC 8.8 (4.5-11.0) X10^3/uL RBC 2.94 L (4.5-5.9) X10^6/uL Hgb 10.6 L (13.5-17.5) g/dL Hct 31.4 L (41-53) % MCV 106.8 H (80-100) fL MCH 36.2 H (26-34) PG MCHC 33.9 (30-36) % RDW 14.0 (11.6-14.8) % Plt Count 173 (150-400) X10^3/uL Neut % (Auto) 86.1 H (50-75) % Lymph % (Auto) 3.8 L (25-40) % [place] % (Auto) 9.2 (3-14) % Eos % (Auto) 0.3 L (2-4) % Baso % (Auto) 0.6 (0-2) % Neut # (Auto) 7600 H (9801-1973) /uL PT 21.2 H (10.1-12.7) SECONDS INR 1.9 H (0.9-1.3) APTT 33 (26.4-36.2) SECONDS Sodium 139 (137-145) mmol/L Potassium 4.1 (3.4-5.1) mmol/L Chloride 96 L (98-107) mmol/L Carbon Dioxide 32 (22-32) mmol/L BUN 26 H (9-20) mg/dL Creatinine 0.90 (0.66-1.25) mg/dL Estimated GFR > 60.0 (>60) mL/min BUN/Creatinine Ratio 28.9 H (6-22) Glucose 140 H (80-110) mg/dL Calcium 8.6 (8.4-10.2) mg/dL Total Bilirubin 1.3 (0.2-1.3) mg/dL AST 101 H (17-59) IU/L ALT 54 (21-72) IU/L Alkaline Phosphatase 206 H (38-126) U/L Total Protein 6.9 (6.3-8.2) g/dL Albumin 3.8 (3.5-5.0) g/dL Globulin 3.1 (1.7-4.1) g/dL Albumin/Globulin Ratio 1.2 (1.0-2.8) Blood Type Antibody Screen 12/02/17 Range/Units 12:47 WBC (4.5-11.0) X10^3/uL RBC (4.5-5.9) X10^6/uL Hgb (13.5-17.5) g/dL Hct (41-53) % MCV (80-100) fL MCH (26-34) PG MCHC (30-36) % RDW (11.6-14.8) % Plt Count (150-400) X10^3/uL Neut % (Auto) (50-75) % Lymph % (Auto) (25-40) % [place] % (Auto) (3-14) % Eos % (Auto) (2-4) % Baso % (Auto) (0-2) % Neut # (Auto) (9150-2656) /uL PT (10.1-12.7) SECONDS INR (0.9-1.3) APTT (26.4-36.2) SECONDS Sodium (137-145) mmol/L Potassium (3.4-5.1) mmol/L Chloride (98-107) mmol/L Carbon Dioxide (22-32) mmol/L BUN (9-20) mg/dL Creatinine (0.66-1.25) mg/dL Estimated GFR (>60) mL/min BUN/Creatinine Ratio (6-22) Glucose (80-110) mg/dL Calcium (8.4-10.2) mg/dL Total Bilirubin (0.2-1.3) mg/dL AST (17-59) IU/L ALT (21-72) IU/L Alkaline Phosphatase (38-126) U/L Total Protein (6.3-8.2) g/dL Albumin (3.5-5.0) g/dL Globulin (1.7-4.1) g/dL Albumin/Globulin Ratio (1.0-2.8) Blood Type O Positive Antibody Screen Negative Discharge Plan Departure [facility] Clinical Impression: Acute upper gastrointestinal hemorrhage Prescriptions: No Action atorvastatin 40 mg tablet 40 mg PO HS Qty: 30 RF: 11 metoprolol tartrate 50 mg tablet 50 mg PO BID Qty: 60 RF: 11 ferrous sulfate [Iron (ferrous sulfate)] 325 MG tablet 325 mg PO BID Qty: 0 RF: 0 omeprazole 20 MG tablet,delayed release (DR/EC) 20 mg PO QDAY Qty: 30 RF: 11 aspirin 81 MG tablet,delayed release (DR/EC) 2 tab PO BID Qty: 0 RF: 0 isosorbide mononitrate 30 mg tablet extended release 24 hr 30 mg PO QAM Qty: 90 RF: 3 nitroglycerin [Nitrostat] 0.4 mg tablet, sublingual 0.4 mg Sublingual Q DAY PRN PRN (Reason: chest pain) Qty: 30 RF: 3 spironolactone 100 mg tablet 100 mg PO Q DAY Qty: 30 RF: 0 ipratropium-albuterol [Combivent Respimat] 20-100 mcg/actuation mist 1 puff INHALATION QID Qty: 4 RF: 2
[2017-12-02 13:15] LABS: Add Manual Diff / Slide Review NO; Basophils Percent Auto 0.6 % (0-2); Eosinophils Percent Auto 0.3 % (2-4); Hemoglobin 10.6 g/dL (13.5-17.5); INR 1.9 (0.9-1.3); Lymphocytes Percent Auto 3.8 % (25-40); Mean Corpuscular HGB Conc 33.9 % (30-36); Mean Corpuscular Hemoglobin 36.2 PG (26-34); Mean Corpuscular Volume 106.8 fL (80-100); Monocytes Percent Auto 9.2 % (3-14); Neutrophils Absolute Auto 7600 /uL (3000-5900); Neutrophils Percent Auto 86.1 % (50-75); Platelet Count 173 X10^3/uL (150-400); Prothrombin Time 21.2 SECONDS (10.1-12.7); Red Blood Cell Count 2.94 X10^6/uL (4.5-5.9); White Blood Cell Count 8.8 X10^3/uL (4.5-11.0)
[2017-12-02 13:17] LABS: Hematocrit 31.4 % (41-53)
[2017-12-02 13:18] LABS: PTT Partial Thromboplastin Tim 33 SECONDS (26.4-36.2)
[2017-12-02 13:19] LABS: Alanine Aminotransferase 54 IU/L (21-72); Albumin 3.8 g/dL (3.5-5.0); Albumin Globulin Ratio 1.2 (1.0-2.8); Alkaline Phosphatase 206 U/L (38-126); Aspartate Aminotransferase 101 IU/L (17-59); BUN Creatinine Ratio 28.9 (6-22); Bilirubin Total 1.3 mg/dL (0.2-1.3); Blood Urea Nitrogen 26 mg/dL (9-20); Calcium 8.6 mg/dL (8.4-10.2); Carbon Dioxide 32 mmol/L (22-32); Chloride 96 mmol/L (98-107); Estimated Glomerular Filt Rate > 60.0 mL/min (>60); Globulin 3.1 g/dL (1.7-4.1); Glucose 140 mg/dL (80-110); HEMOLYSIS < 15 (0-50); Potassium 4.1 mmol/L (3.4-5.1); Sodium 139 mmol/L (137-145); Total Protein 6.9 g/dL (6.3-8.2)
--- NOTE | 2017-12-02 13:32 | ED_ITS ---
HPI - GI Bleed General Chief complaint: GI Bleed Stated complaint: DARK STOOL,VOMITING BLOOD Time Seen by Provider: 12/02/17 12:17 Source: patient and family Mode of arrival: ambulatory Limitations: no limitations History of Present Illness HPI Narrative: 62-year-old male with history alcohol abuse and cirrhosis, former smoker presents alone for evaluation of bright red blood in his vomit last night and the passage of dark and tarry stool today. Additionally he feels a bit dizzy and weak and complains of some generalized abdominal pain. He has a history of significant alcohol abuse though he no longer drinks heavily. He has had episodes of upper GI bleed in the past and has been diagnosed with esophageal varices and has hospitalizations at most hospitals in the area that have Gastroenterology. He denies the use of blood thinners but does take a baby aspirin daily. MD complaint: blood streaked emesis and melena Onset (ago): day(s) Pain Consistency: intermittent Severity: moderate Relieving factors: none Exacerbating factors: none Context: history of GI bleed, liver disease, alcohol abuse and known esophageal varices Associated symptoms: abdominal pain, nausea and vomiting Treatments Prior to Arrival: none Related Data Home Medications Medication Instructions Recorded Confirmed ferrous sulfate [Iron (ferrous 325 mg PO BID #0 06/25/16 12/02/17 sulfate)] aspirin 2 tab PO BID #0 12/24/16 12/02/17 Previous Rx's Medication Instructions Recorded omeprazole 20 mg PO QDAY #30 tab 08/17/16 isosorbide mononitrate ER 30 mg 30 mg PO QAM #90 tab 07/22/17 tablet,extended release 24 hr nitroglycerin 0.4 mg sublingual 0.4 mg SUBLINGUAL Q DAY PRN PRN 07/29/17 tablet #30 tab spironolactone 100 mg tablet 100 mg PO Q DAY #30 tab 11/04/17 atorvastatin 40 mg tablet 40 mg PO HS #30 tab 11/15/17 metoprolol tartrate 50 mg tablet 50 mg PO BID #60 tab 11/15/17 ipratropium-albuterol [Combivent 1 puff INHALATION QID #4 gram 11/17/17 Respimat] Allergies Allergy/AdvReac Type Severity Reaction Status Date / Time No Known Drug Allergies Allergy Verified 11/15/17 14:31 Review of Systems Review of Systems All systems reviewed & are unremarkable except as noted in HPI and below Constitutional Denies chills, Denies fever(s), Denies lethargy and Reports weakness Eyes Denies change in vision, Denies eye discharge, Denies irritation and Denies loss of vision ENT Ears, Nose, Mouth, and Throat: Denies change in voice, Denies neck pain and Denies sore throat Cardiovascular Denies chest pain, Denies irregular heart rhythm, Denies lightheadedness, Denies palpitations, Denies dyspnea, Denies dyspnea on exertion and Denies orthopnea Respiratory Denies cough, Denies dyspnea, Denies dyspnea on exertion and Denies wheezing Gastrointestinal Gastrointestinal: Reports abdominal pain, Reports melena, Denies change in bowel habits, Denies diarrhea, Denies nausea and Denies vomiting Genitourinary Denies hematuria, Denies flank pain, Denies urinary incontinence and Denies urinary urgency Musculoskeletal Denies neck pain Integumentary/Breasts Denies pruritus, Denies erythema, Denies rash and Denies wounds Neurologic Denies confusion, Denies loss of vision and Reports weakness Psychiatric Denies anxiety, Denies confusion, Denies depression, Denies homicidal ideation and Denies suicidal ideation Endocrine Denies palpitations Hematologic/Lymphatic Denies easy bruising Allergic/Immunologic Denies wheezing [facility] Medical History Right shoulder pain (Chronic) Hyperlipidemia (Chronic) Essential hypertension (01/03/15) Gastroesophageal reflux disease (01/03/15) Alcoholic cirrhosis of liver with ascites (01/03/15) Coronary artery disease involving [place] coronary artery of [place] heart with unstable angina pectoris (01/03/15) Esophageal varices in alcoholic cirrhosis (01/03/15) Chronic alcoholic gastritis with hemorrhage (08/17/16) Alcohol abuse (Chronic) Coronary artery disease (Chronic) Duodenal ulcer (Chronic) GERD (gastroesophageal reflux disease) (Chronic) Hepatic cirrhosis (Chronic) Anemia (Resolved) Bleeding esophageal varices (Resolved 12/2014) Upper GI bleed (Resolved 12/2014) Surgical History Hx of cardiac catheterization (Resolved 12/2014) Social History household members: spouse Smoking Status: Current every day smoker alcohol intake: current substance use type: marijuana Exam Narrative Exam Narrative: 62M obviously unwell Initial Vital Signs Initial Vital Signs: Vital Signs Temperature 98.2 F 12/02/17 12:13 Pulse Rate 58 L 12/02/17 12:13 Respiratory Rate 16 12/02/17 12:13 Blood Pressure 119/59 L 12/02/17 12:13 Pulse Oximetry 98 12/02/17 12:13 Const General: cooperative and well developed Nutritional Appearance: well nourished Orientation: alert, awake, oriented x3 and not confused HENLA Head: normocephalic and atraumatic Ears: external ears normal and TM's normal bilaterally Nose: external nose normal and No nasal discharge Face and sinus: sinuses nontender, face symmetric, no sinus tenderness and No dry mucous membranes Mouth: oral mucosae normal and moist mucous membranes Teeth and gingiva: dentition normal Throat: tonsils normal and uvula midline Eyes General: appearance normal, both eyes and all related structures Eyelids: eyelids normal Conjunctivae: conjunctivae normal Sclera: sclerae normal Pupils: PERRL EOM: EOM intact bilaterally Neck Neck: normal visual inspection, trachea midline, No lymphadenopathy, No midline deformity and No JVD Lymphatic: No lymphedema Chest Chest: normal inspection of the chest Resp Effort & Inspection: normal respiratory effort, able to speak in complete sentences, no respiratory distress and no use of accessory muscles Auscultation: clear to auscultation bilaterally, no rales, no rhonchi and no wheezes Cardio Rate: regular rate Rhythm: regular rhythm Heart Sounds: no click, no gallops, no murmurs and no rubs Pulses: normal peripheral pulses GI Inspection: non-distended Palpation: soft, no hepatosplenomegaly, No guarding, No pulsatile mass and tender Auscultation: normal bowel sounds Rectal Exam: heme positive stool Back/Spine/Pelvis Back: No CVA tenderness Cervical Spine: cervical ROM normal and No pain with cervical ROM Thoracic/Lumbar Spine: thoracic and lumbar spine normal to inspection Skin General: no rashes or lesions noted, No jaundice and No petechiae Neuro General: alert, oriented x3, gait normal and no focal motor deficits Speech: speech normal Extrem General: full ROM, no clubbing, cyanosis or edema, no pedal edema and no calf tenderness Psych Appearance: well kempt Mental Status: mental status grossly normal Attitude: cooperative Thought Content: normal and suicidality Judgment: judgment good Course Orders Ordered: ED Orders 12/02/17 12:47 Complete Blood Count AUTO DIFF Stat Comprehensive Metabolic Panel Stat Partial Thromboplastin Time Stat Prothrombin Time INR Stat Type and Screen Stat Pantoprazole Sodium 80 mg/ (Sodium Chloride) 100 mls @ 10 mls/hr IV CONT MAREK Last Admin: 12/02/17 15:01 Dose: 8 mg/hr, 10 mls/hr Octreotide Acetate 500 mcg/ (Sodium Chloride) 101 mls @ 10.1 mls/hr IV CONT MAREK ; Protocol Last Admin: 12/02/17 14:59 Dose: 50 mcg/hr, 10.1 mls/hr Discontinued Medications Octreotide Acetate (Sandostatin) 50 mcg IV NOW ONE Stop: 12/02/17 12:20 Last Admin: 12/02/17 13:42 Dose: 50 mcg Ondansetron HCl (Zofran) 4 mg IV NOW ONE Stop: 12/02/17 12:20 Last Admin: 12/02/17 13:38 Dose: 4 mg Pantoprazole Sodium (Protonix) 40 mg IV NOW ONE Stop: 12/02/17 12:20 Last Admin: 12/02/17 13:41 Dose: 40 mg Consultations Consultation #1: Dr. Cervantes (GI at [facility]) is happy to provide consultation when patient is transferred and will likely scope tomorrow, requests admission be to hospitalist. Recommends Octreotide and PPI drips Time: 13:58 Consultation #2: call to [facility] hospitalist Vital Signs - 8 hr 12/02/17 12:13 12/02/17 13:56 12/02/17 15:00 Temperature 98.2 F Pulse Rate 58 L 81 76 Respiratory Rate 16 20 18 Blood Pressure 119/59 L Blood Pressure [Left Arm] 118/61 103/47 L Pulse Oximetry 98 98 97 MDM - GI Bleed Lab Data Result diagrams: 12/02/17 12:47 12/02/17 12:47 Lab Results 12/02/17 12/02/17 12/02/17 Range/Units 12:47 12:47 12:47 WBC 8.8 (4.5-11.0) X10^3/uL RBC 2.94 L (4.5-5.9) X10^6/uL Hgb 10.6 L (13.5-17.5) g/dL Hct 31.4 L (41-53) % MCV 106.8 H (80-100) fL MCH 36.2 H (26-34) PG MCHC 33.9 (30-36) % RDW 14.0 (11.6-14.8) % Plt Count 173 (150-400) X10^3/uL Neut % (Auto) 86.1 H (50-75) % Lymph % (Auto) 3.8 L (25-40) % [place] % (Auto) 9.2 (3-14) % Eos % (Auto) 0.3 L (2-4) % Baso % (Auto) 0.6 (0-2) % Neut # (Auto) 7600 H (0625-4397) /uL PT 21.2 H (10.1-12.7) SECONDS INR 1.9 H (0.9-1.3) APTT 33 (26.4-36.2) SECONDS Sodium 139 (137-145) mmol/L Potassium 4.1 (3.4-5.1) mmol/L Chloride 96 L (98-107) mmol/L Carbon Dioxide 32 (22-32) mmol/L BUN 26 H (9-20) mg/dL Creatinine 0.90 (0.66-1.25) mg/dL Estimated GFR > 60.0 (>60) mL/min BUN/Creatinine Ratio 28.9 H (6-22) Glucose 140 H (80-110) mg/dL Calcium 8.6 (8.4-10.2) mg/dL Total Bilirubin 1.3 (0.2-1.3) mg/dL AST 101 H (17-59) IU/L ALT 54 (21-72) IU/L Alkaline Phosphatase 206 H (38-126) U/L Total Protein 6.9 (6.3-8.2) g/dL Albumin 3.8 (3.5-5.0) g/dL Globulin 3.1 (1.7-4.1) g/dL Albumin/Globulin Ratio 1.2 (1.0-2.8) Blood Type Antibody Screen 12/02/17 Range/Units 12:47 WBC (4.5-11.0) X10^3/uL RBC (4.5-5.9) X10^6/uL Hgb (13.5-17.5) g/dL Hct (41-53) % MCV (80-100) fL MCH (26-34) PG MCHC (30-36) % RDW (11.6-14.8) % Plt Count (150-400) X10^3/uL Neut % (Auto) (50-75) % Lymph % (Auto) (25-40) % [place] % (Auto) (3-14) % Eos % (Auto) (2-4) % Baso % (Auto) (0-2) % Neut # (Auto) (6606-4758) /uL PT (10.1-12.7) SECONDS INR (0.9-1.3) APTT (26.4-36.2) SECONDS Sodium (137-145) mmol/L Potassium (3.4-5.1) mmol/L Chloride (98-107) mmol/L Carbon Dioxide (22-32) mmol/L BUN (9-20) mg/dL Creatinine (0.66-1.25) mg/dL Estimated GFR (>60) mL/min BUN/Creatinine Ratio (6-22) Glucose (80-110) mg/dL Calcium (8.4-10.2) mg/dL Total Bilirubin (0.2-1.3) mg/dL AST (17-59) IU/L ALT (21-72) IU/L Alkaline Phosphatase (38-126) U/L Total Protein (6.3-8.2) g/dL Albumin (3.5-5.0) g/dL Globulin (1.7-4.1) g/dL Albumin/Globulin Ratio (1.0-2.8) Blood Type O Positive Antibody Screen Negative Discharge Plan Departure Patient Disposition: [facility] Clinical Impression: Acute upper gastrointestinal hemorrhage Prescriptions: No Action atorvastatin 40 mg tablet 40 mg PO HS Qty: 30 RF: 11 metoprolol tartrate 50 mg tablet 50 mg PO BID Qty: 60 RF: 11 ferrous sulfate [Iron (ferrous sulfate)] 325 MG tablet 325 mg PO BID Qty: 0 RF: 0 omeprazole 20 MG tablet,delayed release (DR/EC) 20 mg PO QDAY Qty: 30 RF: 11 aspirin 81 MG tablet,delayed release (DR/EC) 2 tab PO BID Qty: 0 RF: 0 isosorbide mononitrate 30 mg tablet extended release 24 hr 30 mg PO QAM Qty: 90 RF: 3 nitroglycerin [Nitrostat] 0.4 mg tablet, sublingual 0.4 mg Sublingual Q DAY PRN PRN (Reason: chest pain) Qty: 30 RF: 3 spironolactone 100 mg tablet 100 mg PO Q DAY Qty: 30 RF: 0 ipratropium-albuterol [Combivent Respimat] 20-100 mcg/actuation mist 1 puff INHALATION QID Qty: 4 RF: 2
[2017-12-02] MEDS: ONDANSETRON 4 MG/2 ML INJ IV (13:38)
[2017-12-02] MEDS: PANTOPRAZOLE 40 MG VIAL IV (13:41)
[2017-12-02] MEDS: OCTREOTIDE 100 MCG/ML VIAL 50 MCG IV (13:42)
[2017-12-02 13:56] VITALS: BP 118/61; PULSE 81; RESP 20; O2SAT 98
[2017-12-02] MEDS: OCTREOTIDE 500 MCG in SODIUM CHLORIDE 0.9% 100 ML 10.1 ML IV (14:59)
[2017-12-02 15:00] VITALS: BP 103/47; PULSE 76; RESP 18; O2SAT 97
[2017-12-02] MEDS: PANTOPRAZOLE 80 MG in SODIUM CHLORIDE 0.9% 100 ML 10 ML IV (15:01)
[2017-12-02 15:47] VITALS: BP 100/44; PULSE 79; RESP 14; O2SAT 97
--- NOTE | 2018-07-24 15:40 | PC.NURSE ---
Per Renetta RN, Pt received 1000mL NS IV completed 11/16/2017 at 2200.
== END 2017-12-02 16:15 | disposition short-term general hospital (02) ==
PROVIDERS: Emergency Provider Emergency Medicine; Family Provider Family Medicine; PCP Family Medicine
DX: K92.2 Gastrointestinal hemorrhage, unspecified (principal)
CPT/HCPCS: 36415; 36591; 80053; 85025; 85610; 85730; 86850; 86900; 86901; 96365; 96368; 96375; 96376; 99283; 99284; C9113; J2354; J2405

== ENCOUNTER 2017-12-23 16:06 | Emergency (ER) | payer OTHER, MEDICAID, SELFPAY ==
[2017-11-16 22:21] VITALS: BMI 21.8
[2017-12-23] VITALS (7 sets, daily range): BP systolic 91–160; BP diastolic 61–84; PULSE 71–87; RESP 14–19; TEMP 36.8; O2SAT 92–97; BMI 22.4
--- NOTE | 2017-12-23 16:28 | PC.NURSE ---
report recent admission for endo/esoph varicies today black stool, reports increased abd swelling, abd large/round/distended/difusely tender, denies nausea/vomiting/fever/trauma, appears pale
[2017-12-23 16:43] LABS: Add Manual Diff / Slide Review NO; Basophils Percent Auto 1.1 % (0-2); Eosinophils Percent Auto 0.2 % (2-4); Hematocrit 32.8 % (41-53); Hemoglobin 10.4 g/dL (13.5-17.5); Lymphocytes Percent Auto 5.2 % (25-40); Mean Corpuscular HGB Conc 31.8 % (30-36); Mean Corpuscular Hemoglobin 33.5 PG (26-34); Mean Corpuscular Volume 105.3 fL (80-100); Monocytes Percent Auto 10.7 % (3-14); Neutrophils Absolute Auto 7700 /uL (3000-5900); Neutrophils Percent Auto 82.8 % (50-75); Platelet Count 269 X10^3/uL (150-400); Red Blood Cell Count 3.11 X10^6/uL (4.5-5.9); Red Cell Distribution Width 15.1 % (11.6-14.8); White Blood Cell Count 9.3 X10^3/uL (4.5-11.0)
[2017-12-23] MEDS: OCTREOTIDE 100 MCG/ML VIAL 50 MCG IV (16:43)
[2017-12-23] MEDS: PANTOPRAZOLE 40 MG VIAL IV (16:43)
--- NOTE | 2017-12-23 16:48 | DI.US.S_ITS ---
PROCEDURE: US ABDOMEN LIMITED INDICATIONS: ASCITIES TECHNIQUE: Real-time focused scanning was performed of the abdomen, with image documentation. COMPARISON: [facility], US, US ABDOMEN LIMITED, 12/05/2017, 17:42. FINDINGS: There is a moderate amount of ascites demonstrated within all 4 quadrants. IMPRESSION: 1. Moderate ascites demonstrated in all 4 quadrants. Dictated by: Angel Casillas M.D. on 12/23/2017 at 19:16 Approved by: Angel Casillas M.D. on 12/23/2017 at 19:17
[2017-12-23] MEDS: METOCLOPRAMIDE 10 MG/2 ML INJ IV (16:55)
[2017-12-23] MEDS: OCTREOTIDE 500 MCG in SODIUM CHLORIDE 0.9% 100 ML 10.1 ML IV (17:02)
[2017-12-23 17:06] LABS: INR 1.7 (0.9-1.3); Prothrombin Time 18.5 SECONDS (10.1-12.7)
[2017-12-23 17:08] LABS: PTT Partial Thromboplastin Tim 33 SECONDS (26.4-36.2)
[2017-12-23 17:11] LABS: Alanine Aminotransferase 56 IU/L (21-72); Albumin 3.4 g/dL (3.5-5.0); Albumin Globulin Ratio 1.1 (1.0-2.8); Alkaline Phosphatase 252 U/L (38-126); Aspartate Aminotransferase 106 IU/L (17-59); BUN Creatinine Ratio 28.9 (6-22); Bilirubin Total 1.5 mg/dL (0.2-1.3); Blood Urea Nitrogen 26 mg/dL (9-20); Calcium 8.2 mg/dL (8.4-10.2); Carbon Dioxide 22 mmol/L (22-32); Chloride 104 mmol/L (98-107); Estimated Glomerular Filt Rate > 60.0 mL/min (>60); Globulin 3.2 g/dL (1.7-4.1); Glucose 116 mg/dL (80-110); HEMOLYSIS < 15 (0-50); Lipase 129 U/L (23-300); Potassium 4.5 mmol/L (3.4-5.1); Sodium 142 mmol/L (137-145); Total Protein 6.6 g/dL (6.3-8.2)
[2017-12-23] MEDS: CEFTRIAXONE 1 GM/50 ML FROZ.PIGGY IV (17:58)
--- NOTE | 2017-12-23 18:03 | ED.GIBLEED ---
HPI - GI Bleed <DO Rajesh Rivera Last Filed: 12/23/17 18:46> General Chief complaint: GI Bleed Stated complaint: INTERNAL BLEEDING Time Seen by Provider: 12/23/17 16:22 Source: patient Mode of arrival: ambulatory Limitations: no limitations History of Present Illness HPI Narrative: 62-year-old male with known liver disease and esophageal varices presents with abdominal discomfort, bloating and melena for the past day or 2. Was most recently transferred to [facility] and had esophageal banding on December 02 and was discharged a few days later with a stable hemoglobin in the upper 8s. Patient presents today with dizziness and lightheadedness, becoming short of breath with any exertion and the passage of melena for a day or 2. He is profoundly fatigued. He denies vomiting but is nauseated. He has had 4 alcoholic beverages this week MD complaint: melena Onset (ago): day(s) Pain Consistency: intermittent Severity: moderate Relieving factors: none Exacerbating factors: none Context: history of GI bleed, liver disease, alcohol abuse and known esophageal varices Associated symptoms: abdominal pain and nausea Related Data Home Medications Medication Instructions Recorded Confirmed ferrous sulfate [Iron (ferrous 325 mg PO BID #0 06/25/16 12/23/17 sulfate)] aspirin 2 tab PO BID #0 12/24/16 12/23/17 lactulose 15 ml PO BID 12/23/17 12/23/17 Previous Rx's Medication Instructions Recorded isosorbide mononitrate ER 30 mg 30 mg PO QAM #90 tab 07/22/17 tablet,extended release 24 hr nitroglycerin 0.4 mg sublingual 0.4 mg SUBLINGUAL Q DAY PRN PRN 07/29/17 tablet #30 tab spironolactone 100 mg tablet 100 mg PO Q DAY #30 tab 11/04/17 atorvastatin 40 mg tablet 40 mg PO HS #30 tab 11/15/17 metoprolol tartrate 50 mg tablet 50 mg PO BID #60 tab 11/15/17 ipratropium-albuterol [Combivent 1 puff INHALATION QID #4 gram 11/17/17 Respimat] Allergies Allergy/AdvReac Type Severity Reaction Status Date / Time No Known Drug Allergies Allergy Verified 11/15/17 14:31 Review of Systems <DO Rajesh Rivera Last Filed: 12/23/17 18:46> Review of Systems All systems reviewed & are unremarkable except as noted in HPI and below Constitutional Denies chills, Reports fatigue, Denies fever(s), Denies lethargy and Reports weakness Eyes Denies change in vision, Denies eye discharge, Denies irritation and Denies loss of vision ENT Ears, Nose, Mouth, and Throat: Denies change in voice, Denies neck pain and Denies sore throat Cardiovascular Denies chest pain, Denies irregular heart rhythm, Denies lightheadedness, Denies palpitations, Denies dyspnea, Denies dyspnea on exertion and Denies orthopnea Respiratory Denies cough, Denies dyspnea, Denies dyspnea on exertion and Denies wheezing Gastrointestinal Gastrointestinal: Reports abdominal pain, Reports melena, Reports bloating, Denies change in bowel habits, Denies diarrhea, Denies nausea and Denies vomiting Genitourinary Denies hematuria, Denies flank pain, Denies urinary incontinence and Denies urinary urgency Musculoskeletal Denies neck pain Integumentary/Breasts Denies pruritus, Denies erythema, Denies rash and Denies wounds Neurologic Denies confusion, Denies loss of vision and Reports weakness Psychiatric Denies anxiety, Denies confusion, Denies depression, Denies homicidal ideation and Denies suicidal ideation Endocrine Reports fatigue and Denies palpitations Hematologic/Lymphatic Denies easy bruising Allergic/Immunologic Denies wheezing Exam <Zen Vieira DO - Last Filed: 12/23/17 18:46> Narrative Exam Narrative: 62-year-old male pale and ill-appearing with dry mucous membranes Initial Vital Signs Initial Vital Signs: Vital Signs Temperature 98.2 F 12/23/17 16:19 Pulse Rate 80 12/23/17 16:19 Respiratory Rate 14 12/23/17 16:19 Blood Pressure 156/84 H 12/23/17 16:19 Pulse Oximetry 96 12/23/17 16:19 Const General: cooperative, well developed, in distress, disheveled and ill appearing Nutritional Appearance: thin Orientation: alert, awake, oriented x3 and not confused [facility] Head: normocephalic and atraumatic Ears: external ears normal and TM's normal bilaterally Nose: external nose normal and No nasal discharge Face and sinus: sinuses nontender, face symmetric, no sinus tenderness and No dry mucous membranes Mouth: oral mucosae normal and moist mucous membranes Teeth and gingiva: dentition normal Throat: tonsils normal and uvula midline Eyes General: appearance normal, both eyes and all related structures Eyelids: eyelids normal Conjunctivae: conjunctival abnormality (pallor) bilaterally Sclera: sclerae normal Pupils: PERRL EOM: EOM intact bilaterally Neck Neck: normal visual inspection, trachea midline, No lymphadenopathy, No midline deformity and No JVD Lymphatic: No lymphedema Chest Chest: normal inspection of the chest Cardio Rate: regular rate Rhythm: regular rhythm Heart Sounds: no click, no gallops, no murmurs and no rubs Pulses: normal peripheral pulses GI Inspection: distended Palpation: soft, no hepatosplenomegaly, No guarding, No pulsatile mass, No tender and ascites Auscultation: normal bowel sounds Rectal Exam: heme positive stool Back/Spine/Pelvis Back: No CVA tenderness Cervical Spine: cervical ROM normal and No pain with cervical ROM Thoracic/Lumbar Spine: thoracic and lumbar spine normal to inspection Skin General: no rashes or lesions noted, No jaundice and No petechiae Neuro General: alert, oriented x3, gait normal and no focal motor deficits Speech: speech normal Psych Appearance: well kempt Mental Status: mental status grossly normal Attitude: cooperative Thought Content: normal and suicidality Judgment: judgment good <Annie Parker DO - Last Filed: 12/24/17 02:02> Initial Vital Signs Initial Vital Signs: Vital Signs Temperature 98.2 F 12/23/17 16:19 Pulse Rate 80 12/23/17 16:19 Respiratory Rate 14 12/23/17 16:19 Blood Pressure 156/84 H 12/23/17 16:19 Pulse Oximetry 96 12/23/17 16:19 Course <Zen Vieira DO - Last Filed: 12/23/17 18:46> Orders Ordered: Discontinued Medications Octreotide Acetate 500 mcg/ (Sodium Chloride) 101 mls @ 10.1 mls/hr IV CONT MAREK; Protocol Last Admin: 12/23/17 17:02 Dose: 50 mcg/hr, 10.1 mls/hr Ceftriaxone Sodium/Dextrose (Rocephin) 1 gm in 50 mls @ 100 mls/hr IV NOW ONE Stop: 12/23/17 18:15 Last Infusion: 12/23/17 18:48 Dose: 0 mls/hr Admin: 12/23/17 17:58 Dose: 100 mls/hr Metoclopramide HCl (Reglan) 10 mg IV NOW ONE Stop: 12/23/17 16:48 Last Admin: 12/23/17 16:55 Dose: 10 mg Octreotide Acetate (Sandostatin) 50 mcg IV NOW ONE Stop: 12/23/17 16:29 Last Admin: 12/23/17 16:43 Dose: 50 mcg Pantoprazole Sodium (Protonix) 40 mg IV NOW ONE Stop: 12/23/17 16:29 Last Admin: 12/23/17 16:43 Dose: 40 mg Consultations Consultation #1: call to GI at [facility] ([facility]) whom is happy to be involved in the patient's care should a consult be placed, but recommends admission to hospitalist Time: 18:00 Consultation #2: Call to hospitalist, Dr. Olmedo is happy to accept patient Time: 18:09 Vital Signs - 8 hr 12/23/17 19:45 12/23/17 20:00 12/23/17 20:13 Pulse Rate 87 86 86 Respiratory Rate 14 19 17 Blood Pressure Blood Pressure [Right Arm] 160/71 H 91/61 108/68 Pulse Oximetry 97 92 94 12/23/17 21:00 12/23/17 21:28 Pulse Rate 71 84 Respiratory Rate 17 14 Blood Pressure 104/76 Blood Pressure [Right Arm] 104/76 Pulse Oximetry 93 97 <Annie Parker DO - Last Filed: 12/24/17 02:02> Orders Ordered: Discontinued Medications Octreotide Acetate 500 mcg/ (Sodium Chloride) 101 mls @ 10.1 mls/hr IV CONT MAREK; Protocol Last Admin: 12/23/17 17:02 Dose: 50 mcg/hr, 10.1 mls/hr Ceftriaxone Sodium/Dextrose (Rocephin) 1 gm in 50 mls @ 100 mls/hr IV NOW ONE Stop: 12/23/17 18:15 Last Infusion: 12/23/17 18:48 Dose: 0 mls/hr Admin: 12/23/17 17:58 Dose: 100 mls/hr Metoclopramide HCl (Reglan) 10 mg IV NOW ONE Stop: 12/23/17 16:48 Last Admin: 12/23/17 16:55 Dose: 10 mg Octreotide Acetate (Sandostatin) 50 mcg IV NOW ONE Stop: 12/23/17 16:29 Last Admin: 12/23/17 16:43 Dose: 50 mcg Pantoprazole Sodium (Protonix) 40 mg IV NOW ONE Stop: 12/23/17 16:29 Last Admin: 12/23/17 16:43 Dose: 40 mg Vital Signs - 8 hr 12/23/17 19:45 12/23/17 20:00 12/23/17 20:13 Pulse Rate 87 86 86 Respiratory Rate 14 19 17 Blood Pressure Blood Pressure [Right Arm] 160/71 H 91/61 108/68 Pulse Oximetry 97 92 94 12/23/17 21:00 12/23/17 21:28 Pulse Rate 71 84 Respiratory Rate 17 14 Blood Pressure 104/76 Blood Pressure [Right Arm] 104/76 Pulse Oximetry 93 97 MDM - GI Bleed <Zen Vieira DO - Last Filed: 12/23/17 18:46> Lab Data Result diagrams: 12/23/17 16:25 12/23/17 16:25 Lab Results 12/23/17 12/23/17 12/23/17 Range/Units 16:25 16:25 16:25 WBC 9.3 (4.5-11.0) X10^3/uL RBC 3.11 L (4.5-5.9) X10^6/uL Hgb 10.4 L (13.5-17.5) g/dL Hct 32.8 L (41-53) % MCV 105.3 H (80-100) fL MCH 33.5 (26-34) PG MCHC 31.8 (30-36) % RDW 15.1 H (11.6-14.8) % Plt Count 269 (150-400) X10^3/uL Neut % (Auto) 82.8 H (50-75) % Lymph % (Auto) 5.2 L (25-40) % [place] % (Auto) 10.7 (3-14) % Eos % (Auto) 0.2 L (2-4) % Baso % (Auto) 1.1 (0-2) % Neut # (Auto) 7700 H (1138-6270) /uL PT 18.5 H (10.1-12.7) SECONDS INR 1.7 H (0.9-1.3) APTT 33 (26.4-36.2) SECONDS Sodium 142 (137-145) mmol/L Potassium 4.5 (3.4-5.1) mmol/L Chloride 104 (98-107) mmol/L Carbon Dioxide 22 (22-32) mmol/L BUN 26 H (9-20) mg/dL Creatinine 0.90 (0.66-1.25) mg/dL Estimated GFR > 60.0 (>60) mL/min BUN/Creatinine Ratio 28.9 H (6-22) Glucose 116 H (80-110) mg/dL Calcium 8.2 L (8.4-10.2) mg/dL Total Bilirubin 1.5 H (0.2-1.3) mg/dL AST 106 H (17-59) IU/L ALT 56 (21-72) IU/L Alkaline Phosphatase 252 H (38-126) U/L Total Protein 6.6 (6.3-8.2) g/dL Albumin 3.4 L (3.5-5.0) g/dL Globulin 3.2 (1.7-4.1) g/dL Albumin/Globulin Ratio 1.1 (1.0-2.8) Lipase 129 (23-300) U/L Blood Type Antibody Screen 12/23/17 Range/Units 16:25 WBC (4.5-11.0) X10^3/uL RBC (4.5-5.9) X10^6/uL Hgb (13.5-17.5) g/dL Hct (41-53) % MCV (80-100) fL MCH (26-34) PG MCHC (30-36) % RDW (11.6-14.8) % Plt Count (150-400) X10^3/uL Neut % (Auto) (50-75) % Lymph % (Auto) (25-40) % [place] % (Auto) (3-14) % Eos % (Auto) (2-4) % Baso % (Auto) (0-2) % Neut # (Auto) (7979-5614) /uL PT (10.1-12.7) SECONDS INR (0.9-1.3) APTT (26.4-36.2) SECONDS Sodium (137-145) mmol/L Potassium (3.4-5.1) mmol/L Chloride (98-107) mmol/L Carbon Dioxide (22-32) mmol/L BUN (9-20) mg/dL Creatinine (0.66-1.25) mg/dL Estimated GFR (>60) mL/min BUN/Creatinine Ratio (6-22) Glucose (80-110) mg/dL Calcium (8.4-10.2) mg/dL Total Bilirubin (0.2-1.3) mg/dL AST (17-59) IU/L ALT (21-72) IU/L Alkaline Phosphatase (38-126) U/L Total Protein (6.3-8.2) g/dL Albumin (3.5-5.0) g/dL Globulin (1.7-4.1) g/dL Albumin/Globulin Ratio (1.0-2.8) Lipase (23-300) U/L Blood Type O Positive Antibody Screen Negative Point of Care Testing Stool Occult Blood Positive Urine Dip Bedside Urine Glucose Negative Bedside Urine Bilirubin + 1 Bedside Urine Ketone + 15 Urine Specific [place] 1.030 Bedside Urine Occult Blood +/- Bedside Urine pH 6.0 Bedside Urine Protein ++ 100 Bedside Urine Urobilinogen 1+ 2mg Bedside Urine Nitrite - Negative Bedside Urine Leukocytes - Negative Esterase <Annie Parker, - Last Filed: 12/24/17 02:02> Lab Data Attestation: I reviewed the patient's lab results. Lab Results 12/23/17 12/23/17 12/23/17 Range/Units 16:25 16:25 16:25 WBC 9.3 (4.5-11.0) X10^3/uL RBC 3.11 L (4.5-5.9) X10^6/uL Hgb 10.4 L (13.5-17.5) g/dL Hct 32.8 L (41-53) % MCV 105.3 H (80-100) fL MCH 33.5 (26-34) PG MCHC 31.8 (30-36) % RDW 15.1 H (11.6-14.8) % Plt Count 269 (150-400) X10^3/uL Neut % (Auto) 82.8 H (50-75) % Lymph % (Auto) 5.2 L (25-40) % [place] % (Auto) 10.7 (3-14) % Eos % (Auto) 0.2 L (2-4) % Baso % (Auto) 1.1 (0-2) % Neut # (Auto) 7700 H (4695-3206) /uL PT 18.5 H (10.1-12.7) SECONDS INR 1.7 H (0.9-1.3) APTT 33 (26.4-36.2) SECONDS Sodium 142 (137-145) mmol/L Potassium 4.5 (3.4-5.1) mmol/L Chloride 104 (98-107) mmol/L Carbon Dioxide 22 (22-32) mmol/L BUN 26 H (9-20) mg/dL Creatinine 0.90 (0.66-1.25) mg/dL Estimated GFR > 60.0 (>60) mL/min BUN/Creatinine Ratio 28.9 H (6-22) Glucose 116 H (80-110) mg/dL Calcium 8.2 L (8.4-10.2) mg/dL Total Bilirubin 1.5 H (0.2-1.3) mg/dL AST 106 H (17-59) IU/L ALT 56 (21-72) IU/L Alkaline Phosphatase 252 H (38-126) U/L Total Protein 6.6 (6.3-8.2) g/dL Albumin 3.4 L (3.5-5.0) g/dL Globulin 3.2 (1.7-4.1) g/dL Albumin/Globulin Ratio 1.1 (1.0-2.8) Lipase 129 (23-300) U/L Blood Type Antibody Screen 12/23/17 Range/Units 16:25 WBC (4.5-11.0) X10^3/uL RBC (4.5-5.9) X10^6/uL Hgb (13.5-17.5) g/dL Hct (41-53) % MCV (80-100) fL MCH (26-34) PG MCHC (30-36) % RDW (11.6-14.8) % Plt Count (150-400) X10^3/uL Neut % (Auto) (50-75) % Lymph % (Auto) (25-40) % [place] % (Auto) (3-14) % Eos % (Auto) (2-4) % Baso % (Auto) (0-2) % Neut # (Auto) (3424-3876) /uL PT (10.1-12.7) SECONDS INR (0.9-1.3) APTT (26.4-36.2) SECONDS Sodium (137-145) mmol/L Potassium (3.4-5.1) mmol/L Chloride (98-107) mmol/L Carbon Dioxide (22-32) mmol/L BUN (9-20) mg/dL Creatinine (0.66-1.25) mg/dL Estimated GFR (>60) mL/min BUN/Creatinine Ratio (6-22) Glucose (80-110) mg/dL Calcium (8.4-10.2) mg/dL Total Bilirubin (0.2-1.3) mg/dL AST (17-59) IU/L ALT (21-72) IU/L Alkaline Phosphatase (38-126) U/L Total Protein (6.3-8.2) g/dL Albumin (3.5-5.0) g/dL Globulin (1.7-4.1) g/dL Albumin/Globulin Ratio (1.0-2.8) Lipase (23-300) U/L Blood Type O Positive Antibody Screen Negative Point of Care Testing Stool Occult Blood Positive Urine Dip Bedside Urine Glucose Negative Bedside Urine Bilirubin + 1 Bedside Urine Ketone + 15 Urine Specific [place] 1.030 Bedside Urine Occult Blood +/- Bedside Urine pH 6.0 Bedside Urine Protein ++ 100 Bedside Urine Urobilinogen 1+ 2mg Bedside Urine Nitrite - Negative Bedside Urine Leukocytes - Negative Esterase MDM Narrative Medical decision making narrative: Patient signed out to me by Dr. Vieira. The patient transferred to [facility] without any further issues Discharge Plan Departure Patient Disposition: [facility] Clinical Impression: Alcoholic cirrhosis of liver with ascites, GI bleeding Discharge Date/Time: 12/23/17 22:15 Interventions: ED Discharge Assessment Last Done: 12/23/17 21:28 Prescriptions: No Action atorvastatin 40 mg tablet 40 mg PO HS Qty: 30 RF: 11 metoprolol tartrate 50 mg tablet 50 mg PO BID Qty: 60 RF: 11 ferrous sulfate [Iron (ferrous sulfate)] 325 MG tablet 325 mg PO BID Qty: 0 RF: 0 aspirin 81 MG tablet,delayed release (DR/EC) 2 tab PO BID Qty: 0 RF: 0 isosorbide mononitrate 30 mg tablet extended release 24 hr 30 mg PO QAM Qty: 90 RF: 3 nitroglycerin [Nitrostat] 0.4 mg tablet, sublingual 0.4 mg Sublingual Q DAY PRN PRN (Reason: chest pain) Qty: 30 RF: 3 spironolactone 100 mg tablet 100 mg PO Q DAY Qty: 30 RF: 0 ipratropium-albuterol [Combivent Respimat] 20-100 mcg/actuation mist 1 puff INHALATION QID Qty: 4 RF: 2 lactulose 10 gram/15 mL solution 15 ml PO BID RF: 0
--- NOTE | 2017-12-23 18:09 | ED_ITS ---
HPI - GI Bleed <DO Rajesh Rivera Last Filed: 12/23/17 18:46> General Chief complaint: GI Bleed Stated complaint: INTERNAL BLEEDING Time Seen by Provider: 12/23/17 16:22 Source: patient Mode of arrival: ambulatory Limitations: no limitations History of Present Illness HPI Narrative: 62-year-old male with known liver disease and esophageal varices presents with abdominal discomfort, bloating and melena for the past day or 2. Was most recently transferred to [facility] and had esophageal banding on December 02 and was discharged a few days later with a stable hemoglobin in the upper 8s. Patient presents today with dizziness and lightheadedness, becoming short of breath with any exertion and the passage of melena for a day or 2. He is profoundly fatigued. He denies vomiting but is nauseated. He has had 4 alcoholic beverages this week MD complaint: melena Onset (ago): day(s) Pain Consistency: intermittent Severity: moderate Relieving factors: none Exacerbating factors: none Context: history of GI bleed, liver disease, alcohol abuse and known esophageal varices Associated symptoms: abdominal pain and nausea Related Data Home Medications Medication Instructions Recorded Confirmed ferrous sulfate [Iron (ferrous 325 mg PO BID #0 06/25/16 12/23/17 sulfate)] aspirin 2 tab PO BID #0 12/24/16 12/23/17 lactulose 15 ml PO BID 12/23/17 12/23/17 Previous Rx's Medication Instructions Recorded isosorbide mononitrate ER 30 mg 30 mg PO QAM #90 tab 07/22/17 tablet,extended release 24 hr nitroglycerin 0.4 mg sublingual 0.4 mg SUBLINGUAL Q DAY PRN PRN 07/29/17 tablet #30 tab spironolactone 100 mg tablet 100 mg PO Q DAY #30 tab 11/04/17 atorvastatin 40 mg tablet 40 mg PO HS #30 tab 11/15/17 metoprolol tartrate 50 mg tablet 50 mg PO BID #60 tab 11/15/17 ipratropium-albuterol [Combivent 1 puff INHALATION QID #4 gram 11/17/17 Respimat] Allergies Allergy/AdvReac Type Severity Reaction Status Date / Time No Known Drug Allergies Allergy Verified 11/15/17 14:31 Review of Systems <DO Rajesh Rivera Last Filed: 12/23/17 18:46> Review of Systems All systems reviewed & are unremarkable except as noted in HPI and below Constitutional Denies chills, Reports fatigue, Denies fever(s), Denies lethargy and Reports weakness Eyes Denies change in vision, Denies eye discharge, Denies irritation and Denies loss of vision ENT Ears, Nose, Mouth, and Throat: Denies change in voice, Denies neck pain and Denies sore throat Cardiovascular Denies chest pain, Denies irregular heart rhythm, Denies lightheadedness, Denies palpitations, Denies dyspnea, Denies dyspnea on exertion and Denies orthopnea Respiratory Denies cough, Denies dyspnea, Denies dyspnea on exertion and Denies wheezing Gastrointestinal Gastrointestinal: Reports abdominal pain, Reports melena, Reports bloating, Denies change in bowel habits, Denies diarrhea, Denies nausea and Denies vomiting Genitourinary Denies hematuria, Denies flank pain, Denies urinary incontinence and Denies urinary urgency Musculoskeletal Denies neck pain Integumentary/Breasts Denies pruritus, Denies erythema, Denies rash and Denies wounds Neurologic Denies confusion, Denies loss of vision and Reports weakness Psychiatric Denies anxiety, Denies confusion, Denies depression, Denies homicidal ideation and Denies suicidal ideation Endocrine Reports fatigue and Denies palpitations Hematologic/Lymphatic Denies easy bruising Allergic/Immunologic Denies wheezing Exam <Zen Vieira DO - Last Filed: 12/23/17 18:46> Narrative Exam Narrative: 62-year-old male pale and ill-appearing with dry mucous membranes Initial Vital Signs Initial Vital Signs: Vital Signs Temperature 98.2 F 12/23/17 16:19 Pulse Rate 80 12/23/17 16:19 Respiratory Rate 14 12/23/17 16:19 Blood Pressure 156/84 H 12/23/17 16:19 Pulse Oximetry 96 12/23/17 16:19 Const General: cooperative, well developed, in distress, disheveled and ill appearing Nutritional Appearance: thin Orientation: alert, awake, oriented x3 and not confused [facility] Head: normocephalic and atraumatic Ears: external ears normal and TM's normal bilaterally Nose: external nose normal and No nasal discharge Face and sinus: sinuses nontender, face symmetric, no sinus tenderness and No dry mucous membranes Mouth: oral mucosae normal and moist mucous membranes Teeth and gingiva: dentition normal Throat: tonsils normal and uvula midline Eyes General: appearance normal, both eyes and all related structures Eyelids: eyelids normal Conjunctivae: conjunctival abnormality (pallor) bilaterally Sclera: sclerae normal Pupils: PERRL EOM: EOM intact bilaterally Neck Neck: normal visual inspection, trachea midline, No lymphadenopathy, No midline deformity and No JVD Lymphatic: No lymphedema Chest Chest: normal inspection of the chest Cardio Rate: regular rate Rhythm: regular rhythm Heart Sounds: no click, no gallops, no murmurs and no rubs Pulses: normal peripheral pulses GI Inspection: distended Palpation: soft, no hepatosplenomegaly, No guarding, No pulsatile mass, No tender and ascites Auscultation: normal bowel sounds Rectal Exam: heme positive stool Back/Spine/Pelvis Back: No CVA tenderness Cervical Spine: cervical ROM normal and No pain with cervical ROM Thoracic/Lumbar Spine: thoracic and lumbar spine normal to inspection Skin General: no rashes or lesions noted, No jaundice and No petechiae Neuro General: alert, oriented x3, gait normal and no focal motor deficits Speech: speech normal Psych Appearance: well kempt Mental Status: mental status grossly normal Attitude: cooperative Thought Content: normal and suicidality Judgment: judgment good <Annie Parker DO - Last Filed: 12/24/17 02:02> Initial Vital Signs Initial Vital Signs: Vital Signs Temperature 98.2 F 12/23/17 16:19 Pulse Rate 80 12/23/17 16:19 Respiratory Rate 14 12/23/17 16:19 Blood Pressure 156/84 H 12/23/17 16:19 Pulse Oximetry 96 12/23/17 16:19 Course <Zen Vieira DO - Last Filed: 12/23/17 18:46> Orders Ordered: Discontinued Medications Octreotide Acetate 500 mcg/ (Sodium Chloride) 101 mls @ 10.1 mls/hr IV CONT MAREK ; Protocol Last Admin: 12/23/17 17:02 Dose: 50 mcg/hr, 10.1 mls/hr Ceftriaxone Sodium/Dextrose (Rocephin) 1 gm in 50 mls @ 100 mls/hr IV NOW ONE Stop: 12/23/17 18:15 Last Infusion: 12/23/17 18:48 Dose: 0 mls/hr Admin: 12/23/17 17:58 Dose: 100 mls/hr Metoclopramide HCl (Reglan) 10 mg IV NOW ONE Stop: 12/23/17 16:48 Last Admin: 12/23/17 16:55 Dose: 10 mg Octreotide Acetate (Sandostatin) 50 mcg IV NOW ONE Stop: 12/23/17 16:29 Last Admin: 12/23/17 16:43 Dose: 50 mcg Pantoprazole Sodium (Protonix) 40 mg IV NOW ONE Stop: 12/23/17 16:29 Last Admin: 12/23/17 16:43 Dose: 40 mg Consultations Consultation #1: call to GI at [facility]) whom is happy to be involved in the patient's care should a consult be placed, but recommends admission to hospitalist Time: 18:00 Consultation #2: Call to hospitalist, Dr. Olmedo is happy to accept patient Time: 18:09 Vital Signs - 8 hr 12/23/17 19:45 12/23/17 20:00 12/23/17 20:13 Pulse Rate 87 86 86 Respiratory Rate 14 19 17 Blood Pressure Blood Pressure [Right Arm] 160/71 H 91/61 108/68 Pulse Oximetry 97 92 94 12/23/17 21:00 12/23/17 21:28 Pulse Rate 71 84 Respiratory Rate 17 14 Blood Pressure 104/76 Blood Pressure [Right Arm] 104/76 Pulse Oximetry 93 97 <Annie Parker DO - Last Filed: 12/24/17 02:02> Orders Ordered: Discontinued Medications Octreotide Acetate 500 mcg/ (Sodium Chloride) 101 mls @ 10.1 mls/hr IV CONT MAREK ; Protocol Last Admin: 12/23/17 17:02 Dose: 50 mcg/hr, 10.1 mls/hr Ceftriaxone Sodium/Dextrose (Rocephin) 1 gm in 50 mls @ 100 mls/hr IV NOW ONE Stop: 12/23/17 18:15 Last Infusion: 12/23/17 18:48 Dose: 0 mls/hr Admin: 12/23/17 17:58 Dose: 100 mls/hr Metoclopramide HCl (Reglan) 10 mg IV NOW ONE Stop: 12/23/17 16:48 Last Admin: 12/23/17 16:55 Dose: 10 mg Octreotide Acetate (Sandostatin) 50 mcg IV NOW ONE Stop: 12/23/17 16:29 Last Admin: 12/23/17 16:43 Dose: 50 mcg Pantoprazole Sodium (Protonix) 40 mg IV NOW ONE Stop: 12/23/17 16:29 Last Admin: 12/23/17 16:43 Dose: 40 mg Vital Signs - 8 hr 12/23/17 19:45 12/23/17 20:00 12/23/17 20:13 Pulse Rate 87 86 86 Respiratory Rate 14 19 17 Blood Pressure Blood Pressure [Right Arm] 160/71 H 91/61 108/68 Pulse Oximetry 97 92 94 12/23/17 21:00 12/23/17 21:28 Pulse Rate 71 84 Respiratory Rate 17 14 Blood Pressure 104/76 Blood Pressure [Right Arm] 104/76 Pulse Oximetry 93 97 MDM - GI Bleed <Zen Vieira DO - Last Filed: 12/23/17 18:46> Lab Data Result diagrams: 12/23/17 16:25 12/23/17 16:25 Lab Results 12/23/17 12/23/17 12/23/17 Range/Units 16:25 16:25 16:25 WBC 9.3 (4.5-11.0) X10^3/uL RBC 3.11 L (4.5-5.9) X10^6/uL Hgb 10.4 L (13.5-17.5) g/dL Hct 32.8 L (41-53) % MCV 105.3 H (80-100) fL MCH 33.5 (26-34) PG MCHC 31.8 (30-36) % RDW 15.1 H (11.6-14.8) % Plt Count 269 (150-400) X10^3/uL Neut % (Auto) 82.8 H (50-75) % Lymph % (Auto) 5.2 L (25-40) % Bowman % (Auto) 10.7 (3-14) % Eos % (Auto) 0.2 L (2-4) % Baso % (Auto) 1.1 (0-2) % Neut # (Auto) 7700 H (5897-9304) /uL PT 18.5 H (10.1-12.7) SECONDS INR 1.7 H (0.9-1.3) APTT 33 (26.4-36.2) SECONDS Sodium 142 (137-145) mmol/L Potassium 4.5 (3.4-5.1) mmol/L Chloride 104 (98-107) mmol/L Carbon Dioxide 22 (22-32) mmol/L BUN 26 H (9-20) mg/dL Creatinine 0.90 (0.66-1.25) mg/dL Estimated GFR > 60.0 (>60) mL/min BUN/Creatinine Ratio 28.9 H (6-22) Glucose 116 H (80-110) mg/dL Calcium 8.2 L (8.4-10.2) mg/dL Total Bilirubin 1.5 H (0.2-1.3) mg/dL AST 106 H (17-59) IU/L ALT 56 (21-72) IU/L Alkaline Phosphatase 252 H (38-126) U/L Total Protein 6.6 (6.3-8.2) g/dL Albumin 3.4 L (3.5-5.0) g/dL Globulin 3.2 (1.7-4.1) g/dL Albumin/Globulin Ratio 1.1 (1.0-2.8) Lipase 129 (23-300) U/L Blood Type Antibody Screen 12/23/17 Range/Units 16:25 WBC (4.5-11.0) X10^3/uL RBC (4.5-5.9) X10^6/uL Hgb (13.5-17.5) g/dL Hct (41-53) % MCV (80-100) fL MCH (26-34) PG MCHC (30-36) % RDW (11.6-14.8) % Plt Count (150-400) X10^3/uL Neut % (Auto) (50-75) % Lymph % (Auto) (25-40) % Bowman % (Auto) (3-14) % Eos % (Auto) (2-4) % Baso % (Auto) (0-2) % Neut # (Auto) (3968-5394) /uL PT (10.1-12.7) SECONDS INR (0.9-1.3) APTT (26.4-36.2) SECONDS Sodium (137-145) mmol/L Potassium (3.4-5.1) mmol/L Chloride (98-107) mmol/L Carbon Dioxide (22-32) mmol/L BUN (9-20) mg/dL Creatinine (0.66-1.25) mg/dL Estimated GFR (>60) mL/min BUN/Creatinine Ratio (6-22) Glucose (80-110) mg/dL Calcium (8.4-10.2) mg/dL Total Bilirubin (0.2-1.3) mg/dL AST (17-59) IU/L ALT (21-72) IU/L Alkaline Phosphatase (38-126) U/L Total Protein (6.3-8.2) g/dL Albumin (3.5-5.0) g/dL Globulin (1.7-4.1) g/dL Albumin/Globulin Ratio (1.0-2.8) Lipase (23-300) U/L Blood Type O Positive Antibody Screen Negative Point of Care Testing Stool Occult Blood Positive Urine Dip Bedside Urine Glucose Negative Bedside Urine Bilirubin + 1 Bedside Urine Ketone + 15 Urine Specific [place] 1.030 Bedside Urine Occult Blood +/- Bedside Urine pH 6.0 Bedside Urine Protein ++ 100 Bedside Urine Urobilinogen 1+ 2mg Bedside Urine Nitrite - Negative Bedside Urine Leukocytes - Negative Esterase <Annie Parker, - Last Filed: 12/24/17 02:02> Lab Data Attestation: I reviewed the patient's lab results. Lab Results 12/23/17 12/23/17 12/23/17 Range/Units 16:25 16:25 16:25 WBC 9.3 (4.5-11.0) X10^3/uL RBC 3.11 L (4.5-5.9) X10^6/uL Hgb 10.4 L (13.5-17.5) g/dL Hct 32.8 L (41-53) % MCV 105.3 H (80-100) fL MCH 33.5 (26-34) PG MCHC 31.8 (30-36) % RDW 15.1 H (11.6-14.8) % Plt Count 269 (150-400) X10^3/uL Neut % (Auto) 82.8 H (50-75) % Lymph % (Auto) 5.2 L (25-40) % Bowman % (Auto) 10.7 (3-14) % Eos % (Auto) 0.2 L (2-4) % Baso % (Auto) 1.1 (0-2) % Neut # (Auto) 7700 H (3110-7725) /uL PT 18.5 H (10.1-12.7) SECONDS INR 1.7 H (0.9-1.3) APTT 33 (26.4-36.2) SECONDS Sodium 142 (137-145) mmol/L Potassium 4.5 (3.4-5.1) mmol/L Chloride 104 (98-107) mmol/L Carbon Dioxide 22 (22-32) mmol/L BUN 26 H (9-20) mg/dL Creatinine 0.90 (0.66-1.25) mg/dL Estimated GFR > 60.0 (>60) mL/min BUN/Creatinine Ratio 28.9 H (6-22) Glucose 116 H (80-110) mg/dL Calcium 8.2 L (8.4-10.2) mg/dL Total Bilirubin 1.5 H (0.2-1.3) mg/dL AST 106 H (17-59) IU/L ALT 56 (21-72) IU/L Alkaline Phosphatase 252 H (38-126) U/L Total Protein 6.6 (6.3-8.2) g/dL Albumin 3.4 L (3.5-5.0) g/dL Globulin 3.2 (1.7-4.1) g/dL Albumin/Globulin Ratio 1.1 (1.0-2.8) Lipase 129 (23-300) U/L Blood Type Antibody Screen 12/23/17 Range/Units 16:25 WBC (4.5-11.0) X10^3/uL RBC (4.5-5.9) X10^6/uL Hgb (13.5-17.5) g/dL Hct (41-53) % MCV (80-100) fL MCH (26-34) PG MCHC (30-36) % RDW (11.6-14.8) % Plt Count (150-400) X10^3/uL Neut % (Auto) (50-75) % Lymph % (Auto) (25-40) % Bowman % (Auto) (3-14) % Eos % (Auto) (2-4) % Baso % (Auto) (0-2) % Neut # (Auto) (8056-6789) /uL PT (10.1-12.7) SECONDS INR (0.9-1.3) APTT (26.4-36.2) SECONDS Sodium (137-145) mmol/L Potassium (3.4-5.1) mmol/L Chloride (98-107) mmol/L Carbon Dioxide (22-32) mmol/L BUN (9-20) mg/dL Creatinine (0.66-1.25) mg/dL Estimated GFR (>60) mL/min BUN/Creatinine Ratio (6-22) Glucose (80-110) mg/dL Calcium (8.4-10.2) mg/dL Total Bilirubin (0.2-1.3) mg/dL AST (17-59) IU/L ALT (21-72) IU/L Alkaline Phosphatase (38-126) U/L Total Protein (6.3-8.2) g/dL Albumin (3.5-5.0) g/dL Globulin (1.7-4.1) g/dL Albumin/Globulin Ratio (1.0-2.8) Lipase (23-300) U/L Blood Type O Positive Antibody Screen Negative Point of Care Testing Stool Occult Blood Positive Urine Dip Bedside Urine Glucose Negative Bedside Urine Bilirubin + 1 Bedside Urine Ketone + 15 Urine Specific [place] 1.030 Bedside Urine Occult Blood +/- Bedside Urine pH 6.0 Bedside Urine Protein ++ 100 Bedside Urine Urobilinogen 1+ 2mg Bedside Urine Nitrite - Negative Bedside Urine Leukocytes - Negative Esterase MDM Narrative Medical decision making narrative: Patient signed out to me by Dr. Vieira. The patient transferred to [facility] without any further issues Discharge Plan Departure Patient Disposition: [facility] Clinical Impression: Alcoholic cirrhosis of liver with ascites, GI bleeding Discharge Date/Time: 12/23/17 22:15 Interventions: ED Discharge Assessment Last Done: 12/23/17 21:28 Prescriptions: No Action atorvastatin 40 mg tablet 40 mg PO HS Qty: 30 RF: 11 metoprolol tartrate 50 mg tablet 50 mg PO BID Qty: 60 RF: 11 ferrous sulfate [Iron (ferrous sulfate)] 325 MG tablet 325 mg PO BID Qty: 0 RF: 0 aspirin 81 MG tablet,delayed release (DR/EC) 2 tab PO BID Qty: 0 RF: 0 isosorbide mononitrate 30 mg tablet extended release 24 hr 30 mg PO QAM Qty: 90 RF: 3 nitroglycerin [Nitrostat] 0.4 mg tablet, sublingual 0.4 mg Sublingual Q DAY PRN PRN (Reason: chest pain) Qty: 30 RF: 3 spironolactone 100 mg tablet 100 mg PO Q DAY Qty: 30 RF: 0 ipratropium-albuterol [Combivent Respimat] 20-100 mcg/actuation mist 1 puff INHALATION QID Qty: 4 RF: 2 lactulose 10 gram/15 mL solution 15 ml PO BID RF: 0
--- NOTE | 2018-01-16 11:58 | PC.NURSE ---
Late Entry: Octreotide gtt, started as documented @ 1702, continued infusing during transfer. Left ED @ 2128m, approx 50 ml infused. No ill effect.
== END 2017-12-23 22:15 | disposition short-term general hospital (02) ==
PROVIDERS: Emergency Medicine; Emergency Provider Emergency Medicine; Family Provider Family Medicine; PCP Family Medicine
DX: K70.31 Alcoholic cirrhosis of liver with ascites (principal); K92.2 Gastrointestinal hemorrhage, unspecified
CPT/HCPCS: 36415; 36591; 76705; 80053; 81003; 82272; 83690; 85025; 85610; 85730; 86850; 86900; 86901; 93005; 93010; 96365; 96366; 96368; 96375; 96376; 99283; 99285; C9113; J2354; J2765

== ENCOUNTER → 2018-01-03 11:39 | Outpatient (CLI) | payer OTHER, MEDICAID, SELFPAY ==
[2017-11-16 22:21] VITALS: BMI 21.8
[2018-01-03 12:10] LABS: INR 1.5 (0.9-1.3); Prothrombin Time 16.6 SECONDS (10.1-12.7)
[2018-01-03 12:16] LABS: Hematocrit 30.7 % (41-53); Hemoglobin 9.8 g/dL (13.5-17.5); Mean Corpuscular Hemoglobin 32.2 PG (26-34); Mean Corpuscular Volume 100.6 fL (80-100); Platelet Count 258 X10^3/uL (150-400); Red Blood Cell Count 3.05 X10^6/uL (4.5-5.9); Red Cell Distribution Width 15.4 % (11.6-14.8); White Blood Cell Count 5.9 X10^3/uL (4.5-11.0)
[2018-01-03 12:20] LABS: HEMOLYSIS < 15 (0-50); Iron 202 ug/dL (49-181)
[2018-01-03 12:21] LABS: Reticulocyte Count, Percent 2.2 % (0.87-2.60)
[2018-01-03 12:31] LABS: Percent Iron Saturation 58 % (20-50); Total Iron Binding Capacity 348 ug/dL (261-462); Transferrin 282 mg/dL (206-381)
[2018-01-03 12:38] LABS: Vitamin D 25 Hydroxy (D3) 15.4 ng/mL (30.0-100.0)
[2018-01-03 12:43] LABS: Alanine Aminotransferase 50 IU/L (21-72); Albumin 3.1 g/dL (3.5-5.0); Alkaline Phosphatase 232 U/L (38-126); Aspartate Aminotransferase 81 IU/L (17-59); BUN Creatinine Ratio 8.8 (6-22); Bilirubin Total 1.2 mg/dL (0.2-1.3); Blood Urea Nitrogen 7 mg/dL (9-20); Calcium 8.2 mg/dL (8.4-10.2); Carbon Dioxide 25 mmol/L (22-32); Chloride 105 mmol/L (98-107); Estimated Glomerular Filt Rate > 60.0 mL/min (>60); Globulin 3.2 g/dL (1.7-4.1); Glucose 97 mg/dL (80-110); HEMOLYSIS 35 (0-50); Potassium 4.5 mmol/L (3.4-5.1); Sodium 142 mmol/L (137-145); Total Protein 6.3 g/dL (6.3-8.2)
[2018-01-03 12:52] LABS: TSH w/ Reflex to FT4 2.89 uIU/mL (0.47-4.68)
[2018-01-03 13:47] LABS: Folate 12.3 ng/mL (2.76-20.0); Vitamin B12 > 1000 pg/mL (239-931)
[2018-01-05 12:55] LABS: Alpha Fetoprotein 2.1 ng/mL (< 6.1)
== END ==
PROVIDERS: PCP Student in an Organized Health Care Education/Training Program; Visit Provider Student in an Organized Health Care Education/Training Program
DX: D50.9 Iron deficiency anemia, unspecified (principal); I10 Essential (primary) hypertension; K70.30 Alcoholic cirrhosis of liver without ascites; R07.9 Chest pain, unspecified
CPT/HCPCS: 80053; 82105; 82306; 82607; 82746; 83540; 83550; 84443; 85027; 85045; 85610

== ENCOUNTER 2018-01-30 11:15 | Outpatient (RCR) | payer OTHER, MEDICAID, SELFPAY ==
[2017-11-16 22:21] VITALS: BMI 21.8
--- NOTE | 2018-01-23 18:07 | PT.OIE ---
Current Diagnoses Other chronic pain (01/23/18) Pain in right shoulder (01/23/18) Past Medical History (Last Updated 01/07/18 @ 13:21 by Tristan Leija MD) Hyperlipidemia (Chronic) Essential hypertension (Chronic 01/03/15) Gastroesophageal reflux disease (Chronic 01/03/15) Alcoholic cirrhosis of liver with ascites (Chronic 01/03/15) Coronary artery disease involving [place] coronary artery of [place] heart with unstable angina pectoris (Chronic 01/03/15) Esophageal varices in alcoholic cirrhosis (Acute 01/03/15) Alcohol abuse (Chronic) Coronary artery disease (Chronic) Duodenal ulcer (Chronic) GERD (gastroesophageal reflux disease) (Chronic) Hepatic cirrhosis (Chronic) Anemia (Resolved) Bleeding esophageal varices (Resolved 12/2014) Chronic alcoholic gastritis with hemorrhage (Resolved 08/17/16) Upper GI bleed (Resolved 12/2014) Past Surgical History (Last Reviewed 12/23/17 @ 18:06 by Zen Vieira DO) Hx of cardiac catheterization (Resolved 12/2014) Provider Visit Care Team Role Provider Type Osvaldo Velazco MD Family Provider Physician Specialty: Family Practice Address: [address] [place] [address] Email: [email or web address] Tristan Leija MD Attending Provider Physician Primary Care Provider Specialty: Internal Medicine Address: [address] [place] [address] Email: Physical Therapy Initial Evaluation PT-OP-A Visit Information Start: 01/23/18 08:04 Freq: Status: Active Protocol: Document 01/23/18 12:52 LRN (Rec: 01/23/18 13:33 LRN [id number]) Out-Patient Physical Therapy Visit Information Visit Information Visit Type Initial Evaluation Visit Start Time 12:52 Visit Stop Time 13:37 Total Visit Minutes 45 Visit Number 1 Number of PER DIEM PHYSICAL THERAPIST ASSISTANT Visits 0 Evaluation Information Evaluation Date 01/23/18 PT-OP-B Current Condition Start: 01/23/18 08:04 Freq: Status: Active Protocol: Document 01/23/18 12:52 LRN (Rec: 01/23/18 13:33 LRN [id number]) Current Condition History of Current Condition Onset Date 6 mos ago Current Complaints Occasional twinge in the R arm . History of Current Condition Pt reports he was spray painting with a partially empty spray can and he turned his wrist (into supination) to spray underneath something and heard and felt something pop right in the anterior shoulder joint, pointing to a location near the short head of biceps attachment site. He has been putting heat on the R shoulder and he reports the pain is going away. He has had a problem before with R shoulder pain that lasted 6 months and it has gone away before. He reports being in/ out of the hospital for the last 4 months and hasn't used the arm much. He reports a sedentary lifestyle for the past 4 years, stating he doesn't do heavy work. He feels his pain is now down to a manageable level with only twinges of pain, and that he isn't needing to use heat anymore. He states a couple of weeks ago the problem resolved itself and he wasn't sure if he should be here in therapy or not. Prior Treatments and Tests None Future Testing and Treatments Planned No further appts with MD. Seeing Dr. Irwin at [facility] who replaced Dr. Velazco, for heart, liver, varices. . Treatment Goals Patient/Caregiver Goals Pt goal is to make sure something isn't torn or things are not growing wrong. Prior Functional Status Baseline Function- ADL's Independent Baseline Function- Mobility Independent Current Functional Impairments (Reported) Functional Limitations- ADL's Occasional twitch in shoulder that radiates into the upper arm that quickly comes and goes. No limitations., Personal Factors Other Personal Factors That May Effect Multiple CoMorbidities. Therapy/Recovery Retired. Lives with significant other. PT-OP-C Subjective Start: 01/23/18 08:04 Freq: Status: Active Protocol: Document 01/23/18 12:52 LRN (Rec: 01/23/18 15:25 LRN [id number]) Patient Questionnaires Quick Dash- Upper Extremity Quick Dash UE Score 2.27 Quick Dash UE Impairment 1 to 19% Impaired (Score 1-19) OP-PT Pain Assessment Pain Assessment Grid Paper Pain Assessment Grid Completed Yes Location Right Upper Anterior Shoulder Pain Location Details Anterior shoulder joint Intensity 4 Scale Used Numeric (1 - 10) Description Sharp Frequency Rarely Radiating Location Sometimes into the Right upper arm Pain Aggravating Factors Changing Position Other Pain Aggravating Factors Reaching Pain Alleviating Factors Heat Comments Pain Comments Patient rarely having pain onset. PT-OP-F Manual Assessment Start: 01/23/18 08:04 Freq: Status: Active Protocol: Document 01/23/18 12:52 LRN (Rec: 01/23/18 15:25 LRN [id number]) Manual Assessments Soft Tissue Assessment Soft Tissue Mobility Assessment Decreased tone on Right [place] PT-OP-H Neuro Start: 01/23/18 08:04 Freq: Status: Active Protocol: Document 01/23/18 12:52 LRN (Rec: 01/23/18 15:25 LRN [id number]) Sensation Evaluation Gross Sensation Gross Sensation WNL PT-OP-J Posture/Palpation/Skin Start: 01/23/18 08:04 Freq: Status: Active Protocol: Document 01/23/18 12:52 LRN (Rec: 01/23/18 15:25 LRN [id number]) Posture Evaluation Position Standing Evaluation View All positions Head/C-Spine Posture Neutral Position L-Spine Posture Decreased Lordosis Shoulder Posture (L) Rounded Scapula Posture (R) Depressed Comments Posture Comments R clavicle is angled upward and the R shoulder is mildly retracted and downwardly rotated. The Right nipple is elevated and his feet are in external rotation. Palpation Assessment Location Right shoulder Palpation Location Anterior shoulder and chest Palpation Details No areas of tenderness noted. Decreased muscle tone in the anterior chest in are of [place] & lateral side of [place]. PT-OP-K Range of Motion Start: 01/23/18 08:04 Freq: Status: Active Protocol: Document 01/23/18 12:52 LRN (Rec: 01/23/18 15:25 LRN [id number]) Cervical Spine Range of Motion Cervical Spine Passive Degrees Comments WNL Shoulder Goniometric Range of Motion Shoulder Measured in Degrees Left Passive Flexion 162 Abduction 150 External Rotation at 90 degrees 88 Abduction Internal Rotation 60 Right Passive Flexion 168 Abduction 177 External Rotation at 90 degrees 80 Abduction Internal Rotation 53 PT-OP-L Special Tests Start: 01/23/18 08:04 Freq: Status: Active Protocol: Document 01/23/18 12:52 LRN (Rec: 01/23/18 15:25 LRN [id number]) Special Tests Shoulder Special Tests IR/Horizontal ADD Impingement Test Results Negative Comments Right shoulder Elevation Impingement Test Results Negative Comments Right shoulder Belly Press Test Results Negative Comments Right shoulder PT-OP-M Strength Start: 01/23/18 08:04 Freq: Status: Active Protocol: Document 01/23/18 12:52 LRN (Rec: 01/23/18 15:25 LRN [id number]) Cervical Spine Strength Cervical Spine Manual Muscle Testing Reason Not Measured WFL Shoulder Strength Shoulder Manual Muscle Testing Left Comments Generally 5/5. Right Internal Rotation 3+ Fair+ Comments Generally 5/5 except IR noted above. Elbow/Forearm Strength Elbow and Forearm Manual Muscle Testing Right Reason Not Measured WFL Left Reason Not Measured WFL PT-OP-T Assessment and Plan Start: 01/23/18 08:04 Freq: Status: Active Protocol: Document 01/23/18 12:52 LRN (Rec: 01/23/18 15:25 LRN [id number]) Physical Therapy Assessment Rehab Potential Rehabilitation Potential Excellent Evaluation Complexity Number of Personal Factors/Comorbidities 1-2 Number of Body Systems Impaired 1-2 Clinical Presentation at Evaluation Stable Impairments Impairments Posture Strength Goals One Impairment Pt lacks self care HEP Short Term Goal (STG) Pt will be independent in HEP of self care ex's to prevent onset of shoulder pain. STG Duration 02/24/18 Assessment Summary Assessment Pt presents with intermittent onset of R shoulder pain but because he performs with minimal activity. He admits his condition is healing with rest and use of heat. He is interested in learning what he can do to normalize his shoulder and possibly improve functional ability since he is using his arms minimally. The pt feels he does not need therapy but will return for instructions in a HEP. Physical Therapy Plan Frequency and Duration Frequency of Treatment 1-2 more vists Plan of Care Start Date 01/23/18 Plan of Care End Date 02/24/18 Therapeutic Interventions Therapeutic Interventions Home Exercise Program Joint Mobilizations Manual Therapy Neuromuscular Re-education Self-Care/Home Management Soft Tissue Mobilization Therapeutic Exercises Modalities Cold Pack/Ice Massage Hot Packs Next Visit Focus/Plan Next Note Type Discharge Summary Next Visit Plan Issue and review HEP of R shoulder IR strengthening and anterior chest stretch, and if needed C. AROM. General rotator cuff ex's and self care instructions for acute injuries. Check GHJ mobility.
--- NOTE | 2018-01-23 18:07 | PT.OPPOC ---
Current Diagnoses Other chronic pain (01/23/18) Pain in right shoulder (01/23/18) Provider Visit Care Team Role Provider Type Osvaldo Velazco MD Family Provider Physician Specialty: Family Practice Address: [address] [place] [address], [id number] Email: [email or web address] Tristan Leija MD Attending Provider Physician Primary Care Provider Specialty: Internal Medicine Address: [address] [place] [address], [id number] Email: Plan Of Care PT-OP-T Assessment and Plan Start: 01/23/18 08:04 Freq: Status: Active Protocol: Document 01/23/18 12:52 LRN (Rec: 01/23/18 15:25 LRN [id number]) Physical Therapy Assessment Rehab Potential Rehabilitation Potential Excellent Evaluation Complexity Number of Personal Factors/Comorbidities 1-2 Number of Body Systems Impaired 1-2 Clinical Presentation at Evaluation Stable Impairments Impairments Posture Strength Goals One Impairment Pt lacks self care HEP Short Term Goal (STG) Pt will be independent in HEP of self care ex's to prevent onset of shoulder pain. STG Duration 02/24/18 Assessment Summary Assessment Pt presents with intermittent onset of R shoulder pain but because he performs with minimal activity. He admits his condition is healing with rest and use of heat. He is interested in learning what he can do to normalize his shoulder and possibly improve functional ability since he is using his arms minimally. The pt feels he does not need therapy but will return for instructions in a HEP. Physical Therapy Plan Frequency and Duration Frequency of Treatment 1-2 more vists Plan of Care Start Date 01/23/18 Plan of Care End Date 02/24/18 Therapeutic Interventions Therapeutic Interventions Home Exercise Program Joint Mobilizations Manual Therapy Neuromuscular Re-education Self-Care/Home Management Soft Tissue Mobilization Therapeutic Exercises Modalities Cold Pack/Ice Massage Hot Packs Next Visit Focus/Plan Next Note Type Discharge Summary Next Visit Plan Issue and review HEP of R shoulder IR strengthening and anterior chest stretch, and if needed C. AROM. General rotator cuff ex's and self care instructions for acute injuries. Check GHJ mobility. Plan of Care Dates Plan of Care Start Date 01/23/18 Plan of Care End Date 02/24/18 Please Sign and Return: I have reviewed this Plan of Care and certify that the skilled therapy services above are required to meet the patient?s needs. Physician Signature Date Printed Name and Credentials Clinical Instructor Signature Printed Name and Credentials
--- NOTE | 2018-01-30 15:02 | PT.OTN ---
Current Diagnoses Other chronic pain (01/30/18) Pain in right shoulder (01/30/18) Physical Therapy Treatment Note PT-OP-A Visit Information Start: 01/23/18 08:04 Freq: Status: Active Protocol: Document 01/30/18 11:23 LRN (Rec: 01/30/18 12:02 LRN [id number]) Out-Patient Physical Therapy Visit Information Visit Information Visit Type Treatment Note Visit Start Time 11:23 Visit Stop Time 11:57 Total Visit Minutes 34 Visit Number 2 Number of KEY WORKER Visits 0 Evaluation Information Evaluation Date 01/23/18 PT-OP-B Current Condition Start: 01/23/18 08:04 Freq: Status: Active Protocol: Document 01/23/18 12:52 LRN (Rec: 01/23/18 13:33 LRN [id number]) Current Condition History of Current Condition Onset Date 6 mos ago Current Complaints Occasional twinge in the R arm . History of Current Condition Pt reports he was spray painting with a partially empty spray can and he turned his wrist (into supination) to spray underneath something and heard and felt something pop right in the anterior shoulder joint, pointing to a location near the short head of biceps attachment site. He has been putting heat on the R shoulder and he reports the pain is going away. He has had a problem before with R shoulder pain that lasted 6 months and it has gone away before. He reports being in/ out of the hospital for the last 4 months and hasn't used the arm much. He reports a sedentary lifestyle for the past 4 years, stating he doesn't do heavy work. He feels his pain is now down to a manageable level with only twinges of pain, and that he isn't needing to use heat anymore. He states a couple of weeks ago the problem resolved itself and he wasn't sure if he should be here in therapy or not. Prior Treatments and Tests None Future Testing and Treatments Planned No further appts with . Seeing Dr. Irwin at [facility] who replaced Dr. Velazco, for heart, liver, varices. . Treatment Goals Patient/Caregiver Goals Pt goal is to make sure something isn't torn or things are not growing wrong. Prior Functional Status Baseline Function- ADL's Independent Baseline Function- Mobility Independent Current Functional Impairments (Reported) Functional Limitations- ADL's Occasional twitch in shoulder that radiates into the upper arm that quickly comes and goes. No limitations., Personal Factors Other Personal Factors That May Effect Multiple CoMorbidities. Therapy/Recovery Retired. Lives with significant other. PT-OP-C Subjective Start: 01/23/18 08:04 Freq: Status: Active Protocol: Document 01/30/18 11:23 LRN (Rec: 01/30/18 12:02 LRN [id number]) OP-PT Subjective Patient Comments Patient Comments States no change, his shoulder is fine. Patient Reported Progress Same OP-PT Pain Assessment Pain Assessment Grid Paper Pain Assessment Grid Completed No Location Right Upper Anterior Shoulder Pain Location Details Anterior shoulder joint Intensity 0 PT-OP-F Manual Assessment Start: 01/23/18 08:04 Freq: Status: Active Protocol: Document 01/30/18 11:23 LRN (Rec: 01/30/18 14:50 LRN [id number]) Manual Assessments Joint Mobility Assessment Joint Mobility Assessment GHJ: R: Increased posterior and inferior mobility. L: Increased inferior mobility . PT-OP-H Neuro Start: 01/23/18 08:04 Freq: Status: Active Protocol: Document 01/23/18 12:52 LRN (Rec: 01/23/18 15:25 LRN [id number]) Sensation Evaluation Gross Sensation Gross Sensation WNL PT-OP-J Posture/Palpation/Skin Start: 01/23/18 08:04 Freq: Status: Active Protocol: Document 01/23/18 12:52 LRN (Rec: 01/23/18 15:25 LRN [id number]) Posture Evaluation Position Standing Evaluation View All positions Head/C-Spine Posture Neutral Position L-Spine Posture Decreased Lordosis Shoulder Posture (L) Rounded Scapula Posture (R) Depressed Comments Posture Comments R clavicle is angled upward and the R shoulder is mildly retracted and downwardly rotated. The Right nipple is elevated and his feet are in external rotation. Palpation Assessment Location Right shoulder Palpation Location Anterior shoulder and chest Palpation Details No areas of tenderness noted. Decreased muscle tone in the anterior chest in are of Pec Minor & lateral side of Pec Major. PT-OP-K Range of Motion Start: 01/23/18 08:04 Freq: Status: Active Protocol: Document 01/23/18 12:52 LRN (Rec: 01/23/18 15:25 LRN [id number]) Cervical Spine Range of Motion Cervical Spine Passive Degrees Comments WNL Shoulder Goniometric Range of Motion Shoulder Measured in Degrees Left Passive Flexion 162 Abduction 150 External Rotation at 90 degrees 88 Abduction Internal Rotation 60 Right Passive Flexion 168 Abduction 177 External Rotation at 90 degrees 80 Abduction Internal Rotation 53 PT-OP-L Special Tests Start: 01/23/18 08:04 Freq: Status: Active Protocol: Document 01/23/18 12:52 LRN (Rec: 01/23/18 15:25 LRN [id number]) Special Tests Shoulder Special Tests IR/Horizontal ADD Impingement Test Results Negative Comments Right shoulder Elevation Impingement Test Results Negative Comments Right shoulder Belly Press Test Results Negative Comments Right shoulder PT-OP-M Strength Start: 01/23/18 08:04 Freq: Status: Active Protocol: Document 01/23/18 12:52 LRN (Rec: 01/23/18 15:25 LRN [id number]) Cervical Spine Strength Cervical Spine Manual Muscle Testing Reason Not Measured WFL Shoulder Strength Shoulder Manual Muscle Testing Left Comments Generally 5/5. Right Internal Rotation 3+ Fair+ Comments Generally 5/5 except IR noted above. Elbow/Forearm Strength Elbow and Forearm Manual Muscle Testing Right Reason Not Measured WFL Left Reason Not Measured WFL PT-OP-Q Treatments Start: 01/23/18 08:04 Freq: Status: Active Protocol: Document 01/30/18 11:23 LRN (Rec: 01/30/18 12:02 LRN [id number]) Therapeutic Exercises Standing Exercises Chest Press Standing Exercise Name Chest Press Side bilateral Resistance Minimal Equipment Used Lev 2 T-Band Lat Pull down Standing Exercise Name Lat Pull down Side bilateral Resistance Minimal Equipment Used Lev 2 T-Band Row Standing Exercise Name Row Side bilateral Resistance Minimal Equipment Used Lev 2 T-Band Shoulder Extension Standing Exercise Name Shoulder ext Side bilateral Resistance Minimal Equipment Used Lev 2 T-Band Shoulder ER/IR Standing Exercise Name T-Band shoulder ER/IR Side right Resistance Minimal Equipment Used Lev 2 T-Band Self-Care/Home Management Treatment Education Patient Education Home Exercise Program Activities Self-Care/Home Management Activities Issued and reviewed HEP of shoulder strengthening and instructions given for Cervical AROM ex's. Pt was issued Lev 2 T-Band and a strap to anchor the T-Band to a door for exercise. PT-OP-T Assessment and Plan Start: 01/23/18 08:04 Freq: Status: Active Protocol: Document 01/30/18 11:23 LRN (Rec: 01/30/18 12:02 LRN [id number]) Physical Therapy Assessment Goals One Impairment Pt lacks self care HEP Short Term Goal (STG) Pt will be independent in HEP of self care ex's to prevent onset of shoulder pain. STG Duration 02/24/18 GOAL MET 02/09/19. Assessment Summary Assessment Pt showed good understanding of his HEP. He did not have any pain or dysfunction in his shoulders with exercise. He is aware of the precautions of exercise to limit resistance for slow build up and for caution with movement during exercise to avoid further injury or pain. Pt is ready to be placed on his independent HEP. Physical Therapy Plan Discharge Physical Therapy Discharge Reasons Goals Met Discharge Comments Pt is ready to be placed on his independent HEP. He is having no pain with his R shoulder and had no pain with exercise.
== END 2018-02-27 10:09 ==
LOC: PHYS 11:15
PROVIDERS: Family Provider Family Medicine; PCP Student in an Organized Health Care Education/Training Program; Visit Provider Student in an Organized Health Care Education/Training Program
DX: M25.511 Pain in right shoulder (principal); G89.29 Other chronic pain
CPT/HCPCS: 97110; 97161

== ENCOUNTER → 2018-06-19 10:23 | Outpatient (CLI) | payer MEDICARE, SELFPAY ==
[2017-11-16 22:21] VITALS: BMI 21.8
[2018-06-19 10:53] LABS: INR 1.4 (0.9-1.3); Prothrombin Time 15.7 SECONDS (10.1-12.7)
== END ==
PROVIDERS: PCP Student in an Organized Health Care Education/Training Program; Visit Provider Internal Medicine Gastroenterology
DX: K74.60 Unspecified cirrhosis of liver (principal); R18.8 Other ascites
CPT/HCPCS: 36415; 85610

== ENCOUNTER 2018-07-28 06:14 | Emergency (ER) | payer MEDICARE, SELFPAY ==
[2017-11-16 22:21] VITALS: BMI 21.8
[2018-07-28] VITALS (11 sets, daily range): BP systolic 114–159; BP diastolic 65–118; PULSE 101–118; RESP 10–20; TEMP 36.6–36.9; O2SAT 96–100
--- NOTE | 2018-07-28 06:18 | DI.RAD.S_ITS ---
PROCEDURE: XR CHEST 1V INDICATIONS: chest pain TECHNIQUE: One view of the chest was acquired. COMPARISON: [facility], CR, XR CHEST 1 VIEW, 12/24/2017, 13:26. [facility], CR, XR CHEST 1V, 11/16/2017, 20:48. FINDINGS: Surgical changes and devices: None. Lungs and pleura: Lungs are clear. No pleural effusions or pneumothorax. Mediastinum: Mediastinal contours appear normal. Heart size is normal. Bones and chest wall: No suspicious bony lesions. Overlying soft tissues appear unremarkable. IMPRESSION: No acute cardiopulmonary disease process. Dictated by: Rahel Simms MD, PhD on 07/28/2018 at 8:00 Approved by: Rahel Simms MD, PhD on 07/28/2018 at 8:01
[2018-07-28] MEDS: ASPIRIN 81 MG TAB 324 MG PO (06:36)
[2018-07-28] MEDS: NITROGLYCERIN OINT 1 INCH/GM OINT...G. 0.5 INCH TOP (06:37)
--- NOTE | 2018-07-28 06:37 | ED_ITS ---
HPI - Chest Pain General Chief Complaint: Chest Pain Stated Complaint: chest pain Time Seen by Provider: 07/28/18 06:18 Source: patient Mode of arrival: ambulatory Limitations: no limitations History of Present Illness HPI narrative: 63-year-old male with a stated history of coronary artery disease. He also has a history of cirrhosis of the liver. Has had paracentesis in the past. States that his last cardiac catheterization was 5 years ago where he stated that he was told he had coronary artery disease but no stents were placed. Patient is here for evaluation of left-sided retrosternal chest pain that started approximately 0400 hours this morning. It is the same pain that he has had in the past. He took his nitro which has helped his symptoms somewhat but not completely. 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 States that his chest pain that brought him in today has been more frequent recently. He is also complaining of shortness of breath. Is having dyspnea on exertion. States he cannot walk around his trailer without becoming short of breath. This is not new for him but has been worsening. Also noticing swelling of his abdomen. States that the symptoms are not better worse with palpation or movement. Related Data Home Medications Medication Instructions Recorded Confirmed ferrous sulfate [Iron (ferrous 325 mg PO BID #0 06/25/16 01/03/18 sulfate)] aspirin 2 tab PO BID #0 12/24/16 01/03/18 Previous Rx's Medication Instructions Recorded atorvastatin 40 mg tablet 40 mg PO HS #30 tab 11/15/17 lactulose 10 gram/15 mL oral 15 ml PO TID #473 ml 01/09/18 solution nadolol 20 mg tablet 20 mg PO DAILY #30 tab 03/09/18 nitroglycerin 0.4 mg sublingual 0.4 mg SUBLINGUAL Q DAY PRN PRN 05/29/18 tablet #30 tab isosorbide mononitrate ER 30 mg 30 mg PO QAM #90 tab 06/02/18 tablet,extended release 24 hr nitroglycerin 400 mcg/spray 0.4 mg SL Q5M PRN #4.1 gram 06/02/18 translingual aerosol spironolactone 100 mg tablet 100 mg PO Q DAY #90 tab 06/02/18 ipratropium 20 mcg-albuterol 100 1 puff INHALATION QID #4 gram 06/27/18 mcg/actuation mist for inhalation Allergies Allergy/AdvReac Type Severity Reaction Status Date / Time No Known Drug Allergies Allergy Verified 01/03/18 10:58 Review of Systems Constitutional Denies fever(s) and Denies headache(s) ENT Ears, Nose, Mouth, and Throat: Denies headache(s) Cardiovascular Reports chest pain, Reports chest pain at rest, Reports chest pain with activity, Denies diaphoresis, Denies syncope, Denies pedal edema, Denies edema, Denies leg edema, Denies radiating jaw, neck or arm pain, Reports dyspnea and Reports dyspnea on exertion Respiratory Reports dyspnea and Reports dyspnea on exertion Gastrointestinal Gastrointestinal: Denies abdominal pain, Reports bloating, Denies nausea and Denies vomiting Genitourinary Denies dysuria Musculoskeletal Denies myalgias and Denies arthralgias Integumentary/Breasts Denies rash Neurologic Denies syncope and Denies headache(s) Hematologic/Lymphatic Denies easy bleeding and Denies easy bruising Allergic/Immunologic Denies urticaria [facility] Medical History Hyperlipidemia (Chronic) Essential hypertension (Chronic 01/03/15) Gastroesophageal reflux disease (Chronic 01/03/15) Alcoholic cirrhosis of liver with ascites (Chronic 01/03/15) Coronary artery disease involving [place] coronary artery of [place] heart with unstable angina pectoris (Chronic 01/03/15) Esophageal varices in alcoholic cirrhosis (Acute 01/03/15) Alcohol abuse (Chronic) Coronary artery disease (Chronic) Duodenal ulcer (Chronic) GERD (gastroesophageal reflux disease) (Chronic) Hepatic cirrhosis (Chronic) Anemia (Resolved) Bleeding esophageal varices (Resolved 12/2014) Chronic alcoholic gastritis with hemorrhage (Resolved 08/17/16) Upper GI bleed (Resolved 12/2014) Surgical History Hx of cardiac catheterization (Resolved 12/2014) Social History household members: spouse Smoking Status: Current every day smoker alcohol intake: current substance use type: marijuana Social History household members: spouse Smoking Status: Current every day smoker alcohol intake: current substance use type: marijuana Exam Initial Vital Signs Initial Vital Signs: Vital Signs Temperature 98 F 07/28/18 06:19 Pulse Rate 114 H 07/28/18 06:19 Respiratory Rate 20 07/28/18 06:19 Blood Pressure 159/71 H 07/28/18 06:19 Pulse Oximetry 99 07/28/18 06:19 Const General: cooperative, comfortable, No acute distress and ill appearing Orientation: alert, awake and oriented x3 HENMT Head: normocephalic and atraumatic Chest Chest: normal inspection of the chest Resp Effort & Inspection: normal respiratory effort Auscultation: clear to auscultation bilaterally Cardio Rate: tachycardic Rhythm: regular rhythm Pulses: radial pulses present GI Inspection: distended Palpation: soft and No tender Rectal Exam: normal sphincter tone and heme positive stool Skin General: pallor Lesions: no lesions Rashes: no rashes Neuro General: alert and awake Cognition: normal cognition Speech: speech normal Motor: muscle tone normal throughout Sensory Exam: no sensory deficits noted Extrem General: normal to inspection and No edema Psych Appearance: grossly normal and well kempt Course Orders Ordered: ED Orders 07/28/18 06:18 XR chest 1V Stat 07/28/18 06:19 EKG-12 Lead Stat 07/28/18 06:25 B Type Natriuretic Peptide Stat Complete Blood Count AUTO DIFF Stat Comprehensive Metabolic Panel Stat Ethanol (ETOH) Stat Lipase Stat Partial Thromboplastin Time Stat Prothrombin Time INR Stat Troponin I Stat 07/28/18 06:45 Ammonia (NH3) Stat Packed Cells Stat Type and Screen Stat Pantoprazole Sodium 80 mg/ (Sodium Chloride) 100 mls @ 10 mls/hr IV CONT MAREK Last Admin: 07/28/18 07:35 Dose: 8 mg/hr, 10 mls/hr Octreotide Acetate 500 mcg/ (Sodium Chloride) 101 mls @ 5.05 mls/hr IV CONT MAREK; Protocol Last Admin: 07/28/18 07:36 Dose: 25 mcg/hr, 5.05 mls/hr Discontinued Medications Aspirin (Aspirin Chew) 324 mg PO NOW ONE Stop: 07/28/18 06:19 Last Admin: 07/28/18 06:36 Dose: 324 mg Nitroglycerin (Nitro-Bid) 0.5 inch TOP NOW ONE Stop: 07/28/18 06:35 Last Admin: 07/28/18 06:37 Dose: 0.5 inch Octreotide Acetate (Sandostatin) 50 mcg IV NOW ONE Stop: 07/28/18 07:02 Last Admin: 07/28/18 07:36 Dose: 50 mcg Pantoprazole Sodium (Protonix) 80 mg IV NOW ONE Stop: 07/28/18 07:00 Last Admin: 07/28/18 07:36 Dose: 80 mg Vital Signs - 8 hr 07/28/18 06:19 07/28/18 06:37 07/28/18 07:21 Temperature 98 F Pulse Rate 114 H 113 H 107 H Respiratory Rate 20 15 Blood Pressure 159/71 H 137/118 H Blood Pressure [Left Arm] 114/68 Pulse Oximetry 99 96 07/28/18 08:01 Temperature Pulse Rate 118 H Respiratory Rate Blood Pressure 131/70 Blood Pressure [Left Arm] Pulse Oximetry MDM - Chest Pain Lab Data Attestation: I reviewed the patient's lab results. Result diagrams: 07/28/18 06:25 07/28/18 06:25 Lab Results 07/28/18 07/28/18 07/28/18 Range/Units 06:25 06:25 06:25 WBC 7.0 (4.5-11.0) X10^3/uL RBC 2.30 L (4.5-5.9) X10^6/uL Hgb 7.5 L (13.5-17.5) g/dL Hct 23.6 L (41-53) % MCV 102.5 H (80-100) fL MCH 32.8 (26-34) PG MCHC 32.0 (30-36) % RDW 16.6 H (11.6-14.8) % Plt Count 224 (150-400) X10^3/uL Neut % (Auto) 80.0 H (50-75) % Lymph % (Auto) 3.0 L (25-40) % [place]kins % (Auto) 13.3 (3-14) % Eos % (Auto) 2.2 (2-4) % Baso % (Auto) 1.5 (0-2) % Neut # (Auto) 5600 (8051-4416) /uL Lymph # (Auto) 200 L (5719-5256) /uL Tom[place]kins # (Auto) 900 (0-900) /uL Eos # (Auto) 200 (0-450) /uL Baso # (Auto) 100 (0-100) /uL PT 15.2 H (10.1-12.7) SECONDS INR 1.3 (0.9-1.3) APTT 31 D (26.4-36.2) SECONDS Sodium 133 L (137-145) mmol/L Potassium 4.5 (3.4-5.1) mmol/L Chloride 99 (98-107) mmol/L Carbon Dioxide 21 L (22-32) mmol/L BUN 10 (9-20) mg/dL Creatinine 0.90 (0.66-1.25) mg/dL Estimated GFR > 60.0 (>60) mL/min BUN/Creatinine Ratio 11.1 (6-22) Glucose 197 H (80-110) mg/dL Calcium 8.1 L (8.4-10.2) mg/dL Total Bilirubin 1.0 (0.2-1.3) mg/dL AST 85 H (17-59) IU/L ALT 42 (21-72) IU/L Alkaline Phosphatase 191 H (38-126) U/L Ammonia (9-30) umol/L Troponin I 0.032 (0.01-0.034) ng/mL B-Natriuretic Peptide (<100) Total Protein 6.8 (6.3-8.2) g/dL Albumin 3.7 (3.5-5.0) g/dL Globulin 3.1 (1.7-4.1) g/dL Albumin/Globulin Ratio 1.2 (1.0-2.8) Lipase 557 H (23-300) U/L Ethyl Alcohol mg/dL Blood Type Antibody Screen Crossmatch 07/28/18 07/28/18 07/28/18 Range/Units 06:25 06:25 06:45 WBC (4.5-11.0) X10^3/uL RBC (4.5-5.9) X10^6/uL Hgb (13.5-17.5) g/dL Hct (41-53) % MCV (80-100) fL MCH (26-34) PG MCHC (30-36) % RDW (11.6-14.8) % Plt Count (150-400) X10^3/uL Neut % (Auto) (50-75) % Lymph % (Auto) (25-40) % [place] % (Auto) (3-14) % Eos % (Auto) (2-4) % Baso % (Auto) (0-2) % Neut # (Auto) (1418-5958) /uL Lymph # (Auto) (5803-3376) /uL [place]kins # (Auto) (0-900) /uL Eos # (Auto) (0-450) /uL Baso # (Auto) (0-100) /uL PT (10.1-12.7) SECONDS INR (0.9-1.3) APTT (26.4-36.2) SECONDS Sodium (137-145) mmol/L Potassium (3.4-5.1) mmol/L Chloride (98-107) mmol/L Carbon Dioxide (22-32) mmol/L BUN (9-20) mg/dL Creatinine (0.66-1.25) mg/dL Estimated GFR (>60) mL/min BUN/Creatinine Ratio (6-22) Glucose (80-110) mg/dL Calcium (8.4-10.2) mg/dL Total Bilirubin (0.2-1.3) mg/dL AST (17-59) IU/L ALT (21-72) IU/L Alkaline Phosphatase (38-126) U/L Ammonia (9-30) umol/L Troponin I (0.01-0.034) ng/mL B-Natriuretic Peptide < 100 (<100) Total Protein (6.3-8.2) g/dL Albumin (3.5-5.0) g/dL Globulin (1.7-4.1) g/dL Albumin/Globulin Ratio (1.0-2.8) Lipase (23-300) U/L Ethyl Alcohol 127 mg/dL Blood Type O Positive Antibody Screen Negative Crossmatch See Detail 07/28/18 Range/Units 06:45 WBC (4.5-11.0) X10^3/uL RBC (4.5-5.9) X10^6/uL Hgb (13.5-17.5) g/dL Hct (41-53) % MCV (80-100) fL MCH (26-34) PG MCHC (30-36) % RDW (11.6-14.8) % Plt Count (150-400) X10^3/uL Neut % (Auto) (50-75) % Lymph % (Auto) (25-40) % [place] % (Auto) (3-14) % Eos % (Auto) (2-4) % Baso % (Auto) (0-2) % Neut # (Auto) (3580-8979) /uL Lymph # (Auto) (0708-6143) /uL [place] # (Auto) (0-900) /uL Eos # (Auto) (0-450) /uL Baso # (Auto) (0-100) /uL PT (10.1-12.7) SECONDS INR (0.9-1.3) APTT (26.4-36.2) SECONDS Sodium (137-145) mmol/L Potassium (3.4-5.1) mmol/L Chloride (98-107) mmol/L Carbon Dioxide (22-32) mmol/L BUN (9-20) mg/dL Creatinine (0.66-1.25) mg/dL Estimated GFR (>60) mL/min BUN/Creatinine Ratio (6-22) Glucose (80-110) mg/dL Calcium (8.4-10.2) mg/dL Total Bilirubin (0.2-1.3) mg/dL AST (17-59) IU/L ALT (21-72) IU/L Alkaline Phosphatase (38-126) U/L Ammonia 22.0 (9-30) umol/L Troponin I (0.01-0.034) ng/mL B-Natriuretic Peptide (<100) Total Protein (6.3-8.2) g/dL Albumin (3.5-5.0) g/dL Globulin (1.7-4.1) g/dL Albumin/Globulin Ratio (1.0-2.8) Lipase (23-300) U/L Ethyl Alcohol mg/dL Blood Type Antibody Screen Crossmatch Imaging Data Chest x-ray: Attestation: I personally reviewed and interpreted this imaging study as follows: My impression: Normal size heart No focal consolidations No acute pathology Radiologist's impression: [address] [address] XRay Report Signed Patient: Abdulaziz Colón LMR#: [id number] : 4Acct:[id number] Age/Sex: 63 / MDate of Service: 07/28/18 Loc: ED Accession Number: [id number] Procedure: XR chest 1V Ordering Provider: Augie Pizarro D.O. PROCEDURE: XR CHEST 1V INDICATIONS: chest pain TECHNIQUE: One view of the chest was acquired. COMPARISON: [facility], CR, XR CHEST 1 VIEW, 12/24/2017, 13:26. [facility], CR, XR CHEST 1V, 11/16/2017, 20:48. FINDINGS: Surgical changes and devices: None. Lungs and pleura: Lungs are clear. No pleural effusions or pneumothorax. Mediastinum: Mediastinal contours appear normal. Heart size is normal. Bones and chest wall: No suspicious bony lesions. Overlying soft tissues appear unremarkable. IMPRESSION: No acute cardiopulmonary disease process. Dictated by: Rahel Simms MD, PhD on 07/28/2018 at 8:00 Approved by: Rahel Simms MD, PhD on 07/28/2018 at 8:01 ECG Data Attestation: I personally reviewed and interpreted this ECG as follows: Prior ECG tracings: available for review Interpretation: Sinus tachycardia Ventricular rate of 114 Normal axis Normal QRS ST depression in V3 Comparison EKG dated 11/16/2017 Shows sinus rhythm a heart rate of [address] T wave changes MDM Narrative Medical decision making narrative: On further questioning patient states that a couple days ago he did have some dark colored stools however he thought that it was from the iron that he has been taking. He also states that within the past month he had banding of esophageal varices done by GI at [facility]. Given his tachycardia and his pale color and his heme-positive stool in his chest discomfort patient blood transfusion was initiated here in the emergency department. Patient was consented after we discussed risks and benefits. Patient was also started on Protonix and octreotide. He is not on anticoagulati on. He does have ST depressions in lead V3 which are new compared to old EKG. His troponin is in the indeterminate range. Given his stated history of ACS in the ST depressions in his indeterminate troponin I also have concern about unstable angina versus non ST elevation MA. Patient was given aspirin upon arrival here in the emergency department. Was also given nitropaste because he was still having slight chest discomfort. Will hold on heparin given the concern for GI bleed. Chest x-ray shows no signs of pneumonia. The patient's alcohol level was elevated as well. He stated that his last drink was 2 days ago. He has a known history of cirrhosis. Patient is not in respiratory dist ress. Initially contact [facility] since that is where the patient receives his care in the past however they were full and did not anticipate any bed openings today. I then discussed the case with Dr. Armenta with the hospitalist at [facility] who accepts the patient in transport. I did discuss transfer with the patient who expressed understanding and agreement. Patient is stable for transport. Discharge Plan Departure Patient Disposition: [facility] Clinical Impression: Unstable angina GI bleed Qualifiers: GI bleed type/associated pathology: unspecified gastrointestinal hemorrhage type Qualified Code(s): K92.2 - Gastrointestinal hemorrhage, unspecified Alcohol intoxication Qualifiers: Complication of substance-induced condition: uncomplicated Qualified Code(s): F10.920 - Alcohol use, unspecified with intoxication, uncomplicated Cirrhosis Qualifiers: Hepatic cirrhosis type: alcoholic cirrhosis Ascites presence: with ascites Qualified Code(s): K70.31 - Alcoholic cirrhosis of liver with ascites Anemia Qualifiers: Anemia type: unspecified type Qualified Code(s): D64.9 - Anemia, unspecified Prescriptions: No Action atorvastatin 40 mg tablet 40 mg PO HS Qty: 30 RF: 11 ferrous sulfate [Iron (ferrous sulfate)] 325 MG tablet 325 mg PO BID Qty: 0 RF: 0 aspirin 81 MG tablet,delayed release (DR/EC) 2 tab PO BID Qty: 0 RF: 0 lactulose 10 gram/15 mL solution 15 ml PO TID Qty: 473 RF: 5 nadolol 20 mg tablet 20 mg PO DAILY Qty: 30 RF: 5 nitroglycerin [Nitrostat] 0.4 mg tablet, sublingual 0.4 mg Sublingual Q DAY PRN PRN (Reason: chest pain) Qty: 30 RF: 11 spironolactone 100 mg tablet 100 mg PO Q DAY Qty: 90 RF: 1 nitroglycerin 400 mcg/spray aerosol,spray 0.4 mg SL Q5M PRN (Reason: chest pain) Qty: 4.1 RF: 3 isosorbide mononitrate 30 mg tablet extended release 24 hr 30 mg PO QAM Qty: 90 RF: 1 Combivent Respimat 20-100 mcg/actuation mist 1 puff INHALATION QID Qty: 4 RF: 11 Referrals: Tristan Leija MD [Primary Care Provider] -
[2018-07-28 06:46] LABS: INR 1.3 (0.9-1.3); Prothrombin Time 15.2 SECONDS (10.1-12.7)
[2018-07-28 06:47] LABS: Add Manual Diff / Slide Review NO; Basophils Absolute Auto 100 /uL (0-100); Basophils Percent Auto 1.5 % (0-2); Eosinophils Absolute Auto 200 /uL (0-450); Eosinophils Percent Auto 2.2 % (2-4); Hemoglobin 7.5 g/dL (13.5-17.5); Lymphocytes Absolute Auto 200 /uL (1100-4500); Mean Corpuscular Hemoglobin 32.8 PG (26-34); Mean Corpuscular Volume 102.5 fL (80-100); Monocytes Absolute Auto 900 /uL (0-900); Monocytes Percent Auto 13.3 % (3-14); Neutrophils Absolute Auto 5600 /uL (1500-7000); Platelet Count 224 X10^3/uL (150-400); Red Cell Distribution Width 16.6 % (11.6-14.8)
[2018-07-28 06:48] LABS: Hematocrit 23.6 % (41-53); PTT Partial Thromboplastin Tim 31 SECONDS (26.4-36.2)
[2018-07-28 06:49] LABS: Ethanol (ETOH) 127 mg/dL
[2018-07-28 06:50] LABS: Alanine Aminotransferase 42 IU/L (21-72); Albumin 3.7 g/dL (3.5-5.0); Albumin Globulin Ratio 1.2 (1.0-2.8); Alkaline Phosphatase 191 U/L (38-126); Aspartate Aminotransferase 85 IU/L (17-59); BUN Creatinine Ratio 11.1 (6-22); Blood Urea Nitrogen 10 mg/dL (9-20); Calcium 8.1 mg/dL (8.4-10.2); Carbon Dioxide 21 mmol/L (22-32); Chloride 99 mmol/L (98-107); Estimated Glomerular Filt Rate > 60.0 mL/min (>60); Globulin 3.1 g/dL (1.7-4.1); Glucose 197 mg/dL (80-110); HEMOLYSIS < 15 (0-50); Lipase 557 U/L (23-300); Potassium 4.5 mmol/L (3.4-5.1); Sodium 133 mmol/L (137-145); Total Protein 6.8 g/dL (6.3-8.2)
[2018-07-28 07:02] LABS: Troponin I 0.032 ng/mL (0.01-0.034)
[2018-07-28] MEDS: PANTOPRAZOLE 80 MG in SODIUM CHLORIDE 0.9% 100 ML 10 ML IV (07:35)
[2018-07-28] MEDS: OCTREOTIDE 100 MCG/ML VIAL 50 MCG IV (07:36)
[2018-07-28] MEDS: OCTREOTIDE 500 MCG in SODIUM CHLORIDE 0.9% 100 ML 5.05 ML IV (07:36)
[2018-07-28] MEDS: PANTOPRAZOLE 40 MG VIAL 80 MG IV (07:36)
[2018-07-28 07:50] LABS: B Type Natriuretic Peptide < 100 (<100)
[2018-07-28] MEDS: MORPHINE 2 MG/ML INJ IV ×2 (10:00→10:42)
== END 2018-07-28 10:53 | disposition short-term general hospital (02) ==
PROVIDERS: Emergency Provider Emergency Medicine; PCP Student in an Organized Health Care Education/Training Program
DX: I20.0 Unstable angina (principal); K92.2 Gastrointestinal hemorrhage, unspecified; K70.31 Alcoholic cirrhosis of liver with ascites; F10.920 Alcohol use, unspecified with intoxication, uncomplicated; R06.02 Shortness of breath
CPT/HCPCS: 36430; 36591; 71045; 80053; 80320; 82140; 83690; 83880; 84484; 85025; 85610; 85730; 86850; 86900; 86901; 93005; 93010; 96365; 96366; 96368; 96375; 96376; 99283; 99285; P9016; C9113; J2270; J2354

== ENCOUNTER → 2018-07-31 10:14 | Outpatient (CLI) | payer MEDICARE, SELFPAY ==
[2017-11-16 22:21] VITALS: BMI 21.8
[2018-07-31 10:47] LABS: Hematocrit 30.3 % (41-53); Hemoglobin 9.8 g/dL (13.5-17.5); Mean Corpuscular HGB Conc 32.3 % (30-36); Platelet Count 251 X10^3/uL (150-400); Red Blood Cell Count 3.06 X10^6/uL (4.5-5.9); Red Cell Distribution Width 16.5 % (11.6-14.8)
[2018-07-31 11:02] LABS: Reticulocyte Count, Percent 4.2 % (0.87-2.60)
[2018-07-31 11:24] LABS: Alanine Aminotransferase 41 IU/L (21-72); Albumin 3.2 g/dL (3.5-5.0); Albumin Globulin Ratio 1.1 (1.0-2.8); Alkaline Phosphatase 231 U/L (38-126); Aspartate Aminotransferase 74 IU/L (17-59); Bilirubin Total 1.9 mg/dL (0.2-1.3); Blood Urea Nitrogen 9 mg/dL (9-20); Calcium 8.5 mg/dL (8.4-10.2); Carbon Dioxide 24 mmol/L (22-32); Chloride 101 mmol/L (98-107); Cholesterol 75 mg/dL (140-199); Estimated Glomerular Filt Rate > 60.0 mL/min (>60); Glucose 93 mg/dL (80-110); HDL Cholesterol 31 mg/dL (40-60); HEMOLYSIS < 15 (0-50); LDL Cholesterol Calculated 32 mg/dL (<100); Potassium 4.6 mmol/L (3.4-5.1); Sodium 133 mmol/L (137-145); Total Protein 6.2 g/dL (6.3-8.2); Triglycerides 59 mg/dL (35-150)
[2018-07-31 11:41] LABS: Vitamin D 25 Hydroxy (D3) 19.5 ng/mL (30.0-100.0)
[2018-08-03 17:37] LABS: Alpha Fetoprotein 2.8 ng/mL (< 6.1)
== END ==
PROVIDERS: PCP Student in an Organized Health Care Education/Training Program; Visit Provider Internal Medicine Cardiovascular Disease
DX: I25.10 Atherosclerotic heart disease of native coronary artery without angina pectoris (principal); K70.31 Alcoholic cirrhosis of liver with ascites; D62 Acute posthemorrhagic anemia; E55.9 Vitamin D deficiency, unspecified; I10 Essential (primary) hypertension; I25.110 Atherosclerotic heart disease of native coronary artery with unstable angina pectoris
CPT/HCPCS: 36415; 80053; 80061; 82105; 82306; 85027; 85045

== ENCOUNTER 2018-08-19 00:14 | Emergency (ER) | payer MEDICARE, SELFPAY ==
[2018-08-02 10:36] VITALS: BMI 21.8
[2018-08-19] VITALS (14 sets, daily range): BP systolic 79–116; BP diastolic 41–82; PULSE 70–97; RESP 11–20; TEMP 36.3–36.7; O2SAT 93–100; BMI 23.6
--- NOTE | 2018-08-19 00:15 | ED_ITS ---
HPI - General Adult General Chief complaint: GI Bleed Stated complaint: chest pain Time Seen by Provider: 08/19/18 00:15 Source: patient Mode of arrival: EMS Limitations: no limitations History of Present Illness HPI narrative: Patient is a 63-year-old male who is seen in the emergency department in the past and transferred secondary to GI bleed and unstable angina. He has followed up with his primary doctor since then. Recently he had a paracentesis. He has known esophageal varices. The patient reported that this evening he started to have left-sided chest discomfort which she stated is his normal chest pain. He states this is normally taking care of by nitroglycerin however he took 3 doses the nitroglycerin and the symptoms did not improve. He also stated that he vomited 2 times at home and it was coffee- ground emesis. He did admit to drinking alcohol today. He called 911 who brought him in for evaluation. Related Data Home Medications Medication Instructions Recorded Confirmed ferrous sulfate [Iron (ferrous 325 mg PO BID #0 06/25/16 08/01/18 sulfate)] aspirin 2 tab PO BID #0 12/24/16 08/01/18 Previous Rx's Medication Instructions Recorded atorvastatin 40 mg tablet 40 mg PO HS #30 tab 11/15/17 lactulose 10 gram/15 mL oral 15 ml PO TID #473 ml 01/09/18 solution nadolol 20 mg tablet 20 mg PO DAILY #30 tab 03/09/18 nitroglycerin 0.4 mg sublingual 0.4 mg SUBLINGUAL Q DAY PRN PRN 05/29/18 tablet #30 tab isosorbide mononitrate ER 30 mg 30 mg PO QAM #90 tab 06/02/18 tablet,extended release 24 hr nitroglycerin 400 mcg/spray 0.4 mg SL Q5M PRN #4.1 gram 06/02/18 translingual aerosol spironolactone 100 mg tablet 100 mg PO Q DAY #90 tab 06/02/18 ipratropium 20 mcg-albuterol 100 1 puff INHALATION QID #4 gram 06/27/18 mcg/actuation mist for inhalation Allergies Allergy/AdvReac Type Severity Reaction Status Date / Time No Known Drug Allergies Allergy Verified 08/01/18 09:01 Review of Systems Constitutional Denies fever(s) and Denies headache(s) ENT Ears, Nose, Mouth, and Throat: Denies headache(s) Cardiovascular Reports chest pain, Denies edema, Reports radiating jaw, neck or arm pain (Radiating to left arm), Denies palpitations and Denies dyspnea Respiratory Denies dyspnea Gastrointestinal Gastrointestinal: Denies abdominal pain, Denies change in stool character, Reports coffee ground emesis, Reports nausea and Reports vomiting Genitourinary Denies dysuria Musculoskeletal Denies myalgias and Denies arthralgias Integumentary/Breasts Denies lesions and Denies rash Neurologic Denies behavioral changes and Denies headache(s) Psychiatric Denies behavioral changes Endocrine Denies palpitations Hematologic/Lymphatic Denies easy bruising Allergic/Immunologic Denies urticaria [facility] Medical History Hyperlipidemia (Chronic) Essential hypertension (Chronic 01/03/15) Gastroesophageal reflux disease (Chronic 01/03/15) Alcoholic cirrhosis of liver with ascites (Chronic 01/03/15) Coronary artery disease involving [place] coronary artery of [place] heart with unstable angina pectoris (Chronic 01/03/15) Esophageal varices in alcoholic cirrhosis (Acute 01/03/15) Alcohol abuse (Chronic) Coronary artery disease (Chronic) Duodenal ulcer (Chronic) GERD (gastroesophageal reflux disease) (Chronic) Hepatic cirrhosis (Chronic) Anemia (Resolved) Bleeding esophageal varices (Resolved 12/2014) Chronic alcoholic gastritis with hemorrhage (Resolved 08/17/16) Upper GI bleed (Resolved 12/2014) Surgical History Hx of cardiac catheterization (Resolved 12/2014) Social History household members: spouse Smoking Status: Current every day smoker alcohol intake: current substance use type: marijuana Social History household members: spouse Smoking Status: Current every day smoker alcohol intake: current substance use type: marijuana Exam Initial Vital Signs Initial Vital Signs: Vital Signs Temperature 97.6 F 08/19/18 00:22 Pulse Rate 97 H 08/19/18 00:22 Respiratory Rate 20 08/19/18 00:22 Blood Pressure 116/64 08/19/18 00:22 Pulse Oximetry 100 08/19/18 00:22 Const General: No in distress and ill appearing Orientation: alert and oriented x3 HENMT Head: normal to inspection and normocephalic Resp Effort & Inspection: normal respiratory effort Auscultation: clear to auscultation bilaterally Cardio Rate: regular rate Rhythm: regular rhythm Pulses: radial pulses present GI Inspection: distended Palpation: soft, No firm, No guarding and No tender Rectal Exam: heme positive stool Skin Lesions: no lesions Rashes: no rashes Neuro General: alert, awake and oriented x3 Cognition: normal cognition Speech: speech normal Extrem General: No edema Psych Appearance: grossly normal and well kempt Course Orders Ordered: ED Orders 08/19/18 00:20 XR chest 1V Stat EKG-12 Lead Stat 08/19/18 00:30 B Type Natriuretic Peptide Stat Complete Blood Count AUTO DIFF Stat Comprehensive Metabolic Panel Stat Ethanol (ETOH) Stat Lactate (Lactic Acid) Stat Lipase Stat Packed Cells Stat Partial Thromboplastin Time Stat Prothrombin Time INR Stat Troponin I Stat Type and Screen Stat 08/19/18 02:26 Hemoglobin and Hematocrit Stat Troponin I Stat 08/19/18 05:50 Hemoglobin and Hematocrit Stat Troponin I Stat Sodium Chloride (Normal Saline 0.9%) 1,000 mls @ 125 mls/hr IV CONT MAREK Last Infusion: 08/19/18 00:45 Dose: 125 mls/hr Admin: 08/19/18 00:32 Dose: 125 mls/hr Pantoprazole Sodium 80 mg/ (Sodium Chloride) 100 mls @ 10 mls/hr IV CONT MAREK Last Admin: 08/19/18 00:47 Dose: 8 mg/hr, 10 mls/hr Octreotide Acetate 500 mcg/ (Sodium Chloride) 101 mls @ 5.05 mls/hr IV CONT MARKE; Protocol Last Admin: 08/19/18 01:01 Dose: 25 mcg/hr, 5.05 mls/hr Nitroglycerin (Nitrostat) 0.4 mg SL [id number] PRN PRN Reason: Chest Pain Last Admin: 08/19/18 01:55 Dose: 0.4 mg Discontinued Medications Aspirin (Aspirin Chew) 324 mg PO NOW ONE Stop: 08/19/18 06:30 Last Admin: 08/19/18 06:33 Dose: 324 mg Sodium Chloride (Normal Saline 0.9%) 500 mls @ 1,000 mls/hr IV BOLUS ONE Stop: 08/19/18 02:40 Last Infusion: 08/19/18 03:00 Dose: 1,000 mls/hr Admin: 08/19/18 02:14 Dose: 1,000 mls/hr Morphine Sulfate (Morphine) 4 mg IV NOW ONE Stop: 08/19/18 02:12 Last Admin: 08/19/18 02:13 Dose: 4 mg Morphine Sulfate (Morphine) 4 mg IV NOW ONE Stop: 08/19/18 02:52 Last Admin: 08/19/18 02:55 Dose: 4 mg Octreotide Acetate (Sandostatin) 50 mcg IV NOW ONE Stop: 08/19/18 00:22 Last Admin: 08/19/18 00:37 Dose: 50 mcg Ondansetron HCl (Zofran) 4 mg IV NOW ONE Stop: 08/19/18 02:12 Last Admin: 08/19/18 02:13 Dose: 4 mg Pantoprazole Sodium (Protonix) 80 mg IV NOW ONE Stop: 08/19/18 00:21 Last Admin: 08/19/18 00:30 Dose: 80 mg Vital Signs - 8 hr 08/19/18 00:22 08/19/18 01:00 08/19/18 01:30 Temperature 97.6 F Pulse Rate 97 H 92 H 89 Respiratory Rate 20 14 15 Blood Pressure 116/64 Blood Pressure [Left Arm] 93/52 L 101/52 L Pulse Oximetry 100 97 97 08/19/18 01:55 08/19/18 02:00 08/19/18 02:30 Temperature Pulse Rate 89 88 87 Respiratory Rate 15 Blood Pressure 101/52 L 102/45 L Blood Pressure [Left Arm] 101/49 L Pulse Oximetry 93 08/19/18 03:00 08/19/18 04:00 08/19/18 06:00 Temperature Pulse Rate 89 88 88 Respiratory Rate 11 L 16 12 Blood Pressure Blood Pressure [Left Arm] 107/82 100/51 L 90/44 L Pulse Oximetry 98 98 97 Medical Decision Making Medical Records Medical records reviewed: Yes I reviewed the patient's medical records. Lab Data Lab results reviewed: Yes I reviewed the patient's lab results. Result diagrams: 08/19/18 05:50 08/19/18 00:30 Lab Results 08/19/18 08/19/18 08/19/18 Range/Units 00:30 00:30 00:30 WBC 11.3 H (4.5-11.0) X10^3/uL RBC 2.50 L (4.5-5.9) X10^6/uL Hgb 8.0 L (13.5-17.5) g/dL Hct 25.1 L (41-53) % MCV 100.4 H (80-100) fL MCH 31.9 (26-34) PG MCHC 31.8 (30-36) % RDW 17.0 H (11.6-14.8) % Plt Count 213 (150-400) X10^3/uL Neut % (Auto) 76.4 H (50-75) % Lymph % (Auto) 4.3 L (25-40) % [place] % (Auto) 15.3 H (3-14) % Eos % (Auto) 2.8 (2-4) % Baso % (Auto) 1.2 (0-2) % Neut # (Auto) 8600 H (3262-7243) /uL Lymph # (Auto) 500 L (0859-1012) /uL [place] # (Auto) 1700 H (0-900) /uL Eos # (Auto) 300 (0-450) /uL Baso # (Auto) 100 (0-100) /uL PT 19.4 H (10.1-12.7) SECONDS INR 1.7 H (0.9-1.3) APTT 33 D (26.4-36.2) SECONDS Sodium 131 L (137-145) mmol/L Potassium 4.1 (3.4-5.1) mmol/L Chloride 91 L (98-107) mmol/L Carbon Dioxide 27 (22-32) mmol/L BUN 25 H (9-20) mg/dL Creatinine 1.20 (0.66-1.25) mg/dL Estimated GFR > 60.0 (>60) mL/min BUN/Creatinine Ratio 20.8 (6-22) Glucose 120 H (80-110) mg/dL Lactate (0.7-2.1) mmol/L Calcium 8.1 L (8.4-10.2) mg/dL Total Bilirubin 1.3 (0.2-1.3) mg/dL AST 90 H (17-59) IU/L ALT 42 (21-72) IU/L Alkaline Phosphatase 234 H (38-126) U/L Troponin I < 0.012 (0.01-0.034) ng/mL B-Natriuretic Peptide < 100 (<100) Total Protein 6.4 (6.3-8.2) g/dL Albumin 3.4 L (3.5-5.0) g/dL Globulin 3.0 (1.7-4.1) g/dL Albumin/Globulin Ratio 1.1 (1.0-2.8) Lipase 339 H (23-300) U/L Ethyl Alcohol 169 mg/dL Blood Type Antibody Screen Crossmatch 08/19/18 08/19/18 08/19/18 Range/Units 00:30 00:30 02:26 WBC (4.5-11.0) X10^3/uL RBC (4.5-5.9) X10^6/uL Hgb 7.6 L (13.5-17.5) g/dL Hct 23.2 L (41-53) % MCV (80-100) fL MCH (26-34) PG MCHC (30-36) % RDW (11.6-14.8) % Plt Count (150-400) X10^3/uL Neut % (Auto) (50-75) % Lymph % (Auto) (25-40) % [place] % (Auto) (3-14) % Eos % (Auto) (2-4) % Baso % (Auto) (0-2) % Neut # (Auto) (9525-4545) /uL Lymph # (Auto) (5075-8228) /uL [place] # (Auto) (0-900) /uL Eos # (Auto) (0-450) /uL Baso # (Auto) (0-100) /uL PT (10.1-12.7) SECONDS INR (0.9-1.3) APTT (26.4-36.2) SECONDS Sodium (137-145) mmol/L Potassium (3.4-5.1) mmol/L Chloride (98-107) mmol/L Carbon Dioxide (22-32) mmol/L BUN (9-20) mg/dL Creatinine (0.66-1.25) mg/dL Estimated GFR (>60) mL/min BUN/Creatinine Ratio (6-22) Glucose (80-110) mg/dL Lactate 2.5 H (0.7-2.1) mmol/L Calcium (8.4-10.2) mg/dL Total Bilirubin (0.2-1.3) mg/dL AST (17-59) IU/L ALT (21-72) IU/L Alkaline Phosphatase (38-126) U/L Troponin I (0.01-0.034) ng/mL B-Natriuretic Peptide (<100) Total Protein (6.3-8.2) g/dL Albumin (3.5-5.0) g/dL Globulin (1.7-4.1) g/dL Albumin/Globulin Ratio (1.0-2.8) Lipase (23-300) U/L Ethyl Alcohol mg/dL Blood Type O Positive Antibody Screen Negative Crossmatch See Detail 08/19/18 08/19/18 08/19/18 Range/Units 02:26 05:50 05:50 WBC (4.5-11.0) X10^3/uL RBC (4.5-5.9) X10^6/uL Hgb 7.1 L (13.5-17.5) g/dL Hct 21.6 L (41-53) % MCV (80-100) fL MCH (26-34) PG MCHC (30-36) % RDW (11.6-14.8) % Plt Count (150-400) X10^3/uL Neut % (Auto) (50-75) % Lymph % (Auto) (25-40) % [place] % (Auto) (3-14) % Eos % (Auto) (2-4) % Baso % (Auto) (0-2) % Neut # (Auto) (0053-1595) /uL Lymph # (Auto) (7936-4886) /uL [place] # (Auto) (0-900) /uL Eos # (Auto) (0-450) /uL Baso # (Auto) (0-100) /uL PT (10.1-12.7) SECONDS INR (0.9-1.3) APTT (26.4-36.2) SECONDS Sodium (137-145) mmol/L Potassium (3.4-5.1) mmol/L Chloride (98-107) mmol/L Carbon Dioxide (22-32) mmol/L BUN (9-20) mg/dL Creatinine (0.66-1.25) mg/dL Estimated GFR (>60) mL/min BUN/Creatinine Ratio (6-22) Glucose (80-110) mg/dL Lactate (0.7-2.1) mmol/L Calcium (8.4-10.2) mg/dL Total Bilirubin (0.2-1.3) mg/dL AST (17-59) IU/L ALT (21-72) IU/L Alkaline Phosphatase (38-126) U/L Troponin I 0.014 0.253 H* (0.01-0.034) ng/mL B-Natriuretic Peptide (<100) Total Protein (6.3-8.2) g/dL Albumin (3.5-5.0) g/dL Globulin (1.7-4.1) g/dL Albumin/Globulin Ratio (1.0-2.8) Lipase (23-300) U/L Ethyl Alcohol mg/dL Blood Type Antibody Screen Crossmatch Imaging Data Chest x-ray: Attestation: I personally reviewed and interpreted this imaging study as follows: My impression: Normal size heart No pneumonia No free air into the diaphragm. ECG Data Attestation: I personally reviewed and interpreted this ECG as follows: Prior ECG tracings: not available for review Interpretation: Sinus rhythm Ventricular rate of 90 Normal axis Normal QRS Normal QTC No ST T wave changes Repeat EKG at 0156 hours when patient was having symptoms Sinus rhythm Ventricular rate of 93 Normal axis Normal QRS Normal QTC No ST T wave changes Unchanged from EKG upon arrival. [facility] Narrative Medical decision making narrative: Had a difficult time obtaining symptom relief of the patient's chest pain. He was given nitroglycerin 1 time here in the emergency department which did cause his blood pressure to drop. He did become nauseous and had an episode of coffee-ground emesis. His blood pressure improved with a 500 cc fluid bolus. H&H did continue to drop during his time here. Troponins also elevating during his time here as well. He was given aspirin secondary for this. He had no EKG changes during the time of his chest pain. Will hold on heparin secondary to his presumed GI bleed. 1 unit of packed red blood cells was transfused after consent was obtained secondary to his decreasing H&H and elevating troponin. Do suspect that there is a demand ischemia component to his chest pain and elevation in troponin. 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 I did discuss the case with Dr. Carbajal at [facility] accepts the patient for transport. Patient was informed of transport. He is stable for transfer. Discharge Plan Departure Patient Disposition: [facility] Clinical Impression: Angina at rest GI bleed Qualifiers: GI bleed type/associated pathology: unspecified gastrointestinal hemorrhage type Qualified Code(s): K92.2 - Gastrointestinal hemorrhage, unspecified Esophageal varices Qualifiers: Esophageal varices type: unspecified type Esophageal varices bleeding: with bleeding Qualified Code(s): I85.01 - Esophageal varices with bleeding Anemia Qualifiers: Anemia type: unspecified type Qualified Code(s): D64.9 - Anemia, unspecified Hypotension Qualifiers: Hypotension type: unspecified hypotension type Qualified Code(s): I95.9 - Hypotension, unspecified Alcohol intoxication Qualifiers: Complication of substance-induced condition: with unspecified complication Qualified Code(s): F10.929 - Alcohol use, unspecified with intoxication, unspecified Prescriptions: No Action atorvastatin 40 mg tablet 40 mg PO HS Qty: 30 RF: 11 ferrous sulfate [Iron (ferrous sulfate)] 325 MG tablet 325 mg PO BID Qty: 0 RF: 0 aspirin 81 MG tablet,delayed release (DR/EC) 2 tab PO BID Qty: 0 RF: 0 lactulose 10 gram/15 mL solution 15 ml PO TID Qty: 473 RF: 5 nadolol 20 mg tablet 20 mg PO DAILY Qty: 30 RF: 5 nitroglycerin [Nitrostat] 0.4 mg tablet, sublingual 0.4 mg Sublingual Q DAY PRN PRN (Reason: chest pain) Qty: 30 RF: 11 spironolactone 100 mg tablet 100 mg PO Q DAY Qty: 90 RF: 1 nitroglycerin 400 mcg/spray aerosol,spray 0.4 mg SL Q5M PRN (Reason: chest pain) Qty: 4.1 RF: 3 isosorbide mononitrate 30 mg tablet extended release 24 hr 30 mg PO QAM Qty: 90 RF: 1 Combivent Respimat 20-100 mcg/actuation mist 1 puff INHALATION QID Qty: 4 RF: 11 Referrals: Liss,Tristan, MD [Primary Care Provider] -
--- NOTE | 2018-08-19 00:20 | DI.RAD.S_ITS ---
PROCEDURE: XR CHEST 1V INDICATIONS: Chest pain TECHNIQUE: One view of the chest was acquired. COMPARISON: [facility], CHEST 2 VIEW, 09/23/2016, 18:41. [facility], CHEST 1 VIEW, 12/24/2016, 19:14. [facility], , XR CHEST 1V, 11/16/2017, 20:48. [facility], , XR CHEST 1V, 07/28/2018, 6:35. FINDINGS: Surgical changes and devices: None. Lungs and pleura: An incomplete inspiratory result is noted, causing a crowded appearance to the lung markings. No focal infiltrates are seen. No pneumothorax or significant pleural effusions are seen. Mediastinum: Mediastinal contours appear normal. Heart size is normal. Bones and chest wall: No suspicious bony lesions. Overlying soft tissues appear unremarkable. IMPRESSION: Limited portable chest examination, without a significant cardiopulmonary abnormality identified. Note: No significant discrepancy from the preliminary report. Dictated by: Keshawn Urbina M.D. on 08/19/2018 at 7:22 Approved by: Keshawn Urbina M.D. on 08/19/2018 at 7:23
[2018-08-19] MEDS: PANTOPRAZOLE 40 MG VIAL 80 MG IV (00:30)
[2018-08-19] MEDS: SODIUM CHLORIDE 0.9% 1,000 ML 125 ML IV (00:32)
[2018-08-19] MEDS: OCTREOTIDE 100 MCG/ML VIAL 50 MCG IV (00:37)
[2018-08-19] MEDS: PANTOPRAZOLE 80 MG in SODIUM CHLORIDE 0.9% 100 ML 10 ML IV (00:47)
[2018-08-19 00:48] LABS: Add Manual Diff / Slide Review NO; Basophils Absolute Auto 100 /uL (0-100); Basophils Percent Auto 1.2 % (0-2); Eosinophils Absolute Auto 300 /uL (0-450); Eosinophils Percent Auto 2.8 % (2-4); Hematocrit 25.1 % (41-53); Lymphocytes Absolute Auto 500 /uL (1100-4500); Lymphocytes Percent Auto 4.3 % (25-40); Mean Corpuscular HGB Conc 31.8 % (30-36); Mean Corpuscular Hemoglobin 31.9 PG (26-34); Mean Corpuscular Volume 100.4 fL (80-100); Monocytes Absolute Auto 1700 /uL (0-900); Monocytes Percent Auto 15.3 % (3-14); Neutrophils Absolute Auto 8600 /uL (1500-7000); Neutrophils Percent Auto 76.4 % (50-75); Platelet Count 213 X10^3/uL (150-400); White Blood Cell Count 11.3 X10^3/uL (4.5-11.0)
[2018-08-19 00:55] LABS: INR 1.7 (0.9-1.3); Prothrombin Time 19.4 SECONDS (10.1-12.7)
[2018-08-19 00:57] LABS: PTT Partial Thromboplastin Tim 33 SECONDS (26.4-36.2)
[2018-08-19 00:58] LABS: Lactate (Lactic Acid) 2.5 mmol/L (0.7-2.1)
[2018-08-19 00:59] LABS: Alanine Aminotransferase 42 IU/L (21-72); Albumin 3.4 g/dL (3.5-5.0); Albumin Globulin Ratio 1.1 (1.0-2.8); Alkaline Phosphatase 234 U/L (38-126); Aspartate Aminotransferase 90 IU/L (17-59); BUN Creatinine Ratio 20.8 (6-22); Bilirubin Total 1.3 mg/dL (0.2-1.3); Blood Urea Nitrogen 25 mg/dL (9-20); Calcium 8.1 mg/dL (8.4-10.2); Carbon Dioxide 27 mmol/L (22-32); Chloride 91 mmol/L (98-107); Estimated Glomerular Filt Rate > 60.0 mL/min (>60); Ethanol (ETOH) 169 mg/dL; Glucose 120 mg/dL (80-110); HEMOLYSIS < 15 (0-50); Lipase 339 U/L (23-300); Potassium 4.1 mmol/L (3.4-5.1); Sodium 131 mmol/L (137-145); Total Protein 6.4 g/dL (6.3-8.2)
[2018-08-19 01:00] LABS: B Type Natriuretic Peptide < 100 (<100)
[2018-08-19] MEDS: OCTREOTIDE 500 MCG in SODIUM CHLORIDE 0.9% 100 ML 5.05 ML IV (01:01)
[2018-08-19 01:12] LABS: Troponin I < 0.012 ng/mL (0.01-0.034)
--- NOTE | 2018-08-19 01:50 | PC.NURSE ---
PT states CP is returning to 8/10 to left chest, Dr. Pizarro aware. Repeat EKG ordered and 4mg Morphine IV given per Dr. Pizarro.
[2018-08-19] MEDS: NITROGLYCERIN 0.4 MG SL TAB SL (01:55)
[2018-08-19] MEDS: ONDANSETRON 4 MG/2 ML INJ IV (02:13)
[2018-08-19] MEDS: MORPHINE 4 MG/ML INJ IV ×2 (02:13→02:55)
[2018-08-19] MEDS: SODIUM CHLORIDE 0.9% 500 ML 1000 ML IV (02:14)
[2018-08-19 02:39] LABS: Reflexed Lactate in 2 Hours Y
--- NOTE | 2018-08-19 02:47 | PC.NURSE ---
Pt reports Left sided CP that radiates to left arm around midnight tonight, which normally resolves with nitro, Pt took 3 nitro without relief. Pt also reports 2 episodes of coffee ground like emesis tonght. Pt has hx GI bleed, esophageal varices and unstable angina. PT admits to drinking alcohol tonight. Reports he called 911 for the dark vomit. PT denies SOB or difficulty breathing.
[2018-08-19 02:49] LABS: Hemoglobin 7.6 g/dL (13.5-17.5)
[2018-08-19 02:52] LABS: Hematocrit 23.2 % (41-53)
[2018-08-19 03:03] LABS: Troponin I 0.014 ng/mL (0.01-0.034)
[2018-08-19 05:58] LABS: Hemoglobin 7.1 g/dL (13.5-17.5)
[2018-08-19 06:07] LABS: Hematocrit 21.6 % (41-53)
[2018-08-19 06:28] LABS: Troponin I 0.253 ng/mL (0.01-0.034)
[2018-08-19] MEDS: ASPIRIN 81 MG TAB 324 MG PO (06:33)
== END 2018-08-19 09:56 | disposition short-term general hospital (02) ==
PROVIDERS: Emergency Provider Emergency Medicine; PCP Student in an Organized Health Care Education/Training Program
DX: I20.8 Other forms of angina pectoris (principal); K92.2 Gastrointestinal hemorrhage, unspecified
CPT/HCPCS: 36415; 36430; 71045; 80053; 80320; 83605; 83690; 83880; 84484; 85014; 85018; 85025; 85610; 85730; 86850; 86900; 86901; 93005; 96361; 96365; 96366; 96368; 96375; 96376; 99285; P9016; C9113; J2270; J2354; J2405

== ENCOUNTER 2018-10-21 13:28 | Emergency (ER) | payer MEDICARE, SELFPAY ==
[2018-08-02 10:36] VITALS: BMI 21.8
--- NOTE | 2018-10-21 13:42 | ED.GIBLEED ---
HPI - GI Bleed General Chief complaint: GI Bleed Stated complaint: puking up blood and weak had a procedure recently Time Seen by Provider: 10/21/18 13:30 Source: patient Mode of arrival: ambulatory Limitations: no limitations History of Present Illness HPI Narrative: 63-year-old male smoker and daily drinker with known esophageal varices presents with 4 episodes of bright red emesis. He feels dizzy, weak and lightheaded. He recently had esophageal banding by Gastroenterology at [facility]. He denies any coffee-ground emesis and states he has had no black stool. He denies fever or chills. He has some epigastric pain without radiation. MD complaint: gross hematemesis Onset (ago): hour(s) Pain Consistency: constant Severity: moderate Relieving factors: none Exacerbating factors: none Context: history of GI bleed and liver disease Associated symptoms: abdominal pain, nausea, vomiting, loss of appetite and malaise Treatments Prior to Arrival: none Related Data Home Medications Medication Instructions Recorded Confirmed ferrous sulfate [Iron (ferrous 325 mg PO BID #0 06/25/16 10/17/18 sulfate)] aspirin 2 tab PO BID #0 12/24/16 10/17/18 Previous Rx's Medication Instructions Recorded atorvastatin 40 mg tablet 40 mg PO HS #30 tab 11/15/17 lactulose 10 gram/15 mL oral 15 ml PO TID #473 ml 01/09/18 solution isosorbide mononitrate ER 30 mg 30 mg PO QAM #90 tab 06/02/18 tablet,extended release 24 hr nitroglycerin 400 mcg/spray 0.4 mg SL Q5M PRN #4.1 gram 06/02/18 translingual aerosol ipratropium 20 mcg-albuterol 100 1 puff INHALATION QID #4 gram 06/27/18 mcg/actuation mist for inhalation nitroglycerin 0.4 mg sublingual 0.4 mg SUBLINGUAL Q DAY PRN PRN 08/21/18 tablet #30 tab propranolol 20 mg tablet 20 mg PO BID #60 tab 08/31/18 spironolactone 100 mg tablet 200 mg PO Q DAY #180 tab 10/17/18 Allergies Allergy/AdvReac Type Severity Reaction Status Date / Time No Known Drug Allergies Allergy Verified 10/17/18 08:50 Review of Systems Constitutional Denies chills, Denies fever(s), Denies lethargy and Reports weakness Eyes Denies change in vision, Denies eye discharge, Denies irritation and Denies loss of vision ENT Ears, Nose, Mouth, and Throat: Denies change in voice, Denies neck pain and Denies sore throat Cardiovascular Denies chest pain, Denies irregular heart rhythm, Denies lightheadedness, Denies palpitations, Denies dyspnea, Denies dyspnea on exertion and Denies orthopnea Respiratory Denies cough, Denies dyspnea, Denies dyspnea on exertion and Denies wheezing Gastrointestinal Gastrointestinal: Reports abdominal pain, Reports hematochezia, Denies change in bowel habits, Denies diarrhea, Reports nausea and Reports vomiting Genitourinary Denies hematuria, Denies flank pain, Denies urinary incontinence and Denies urinary urgency Musculoskeletal Denies neck pain Integumentary/Breasts Denies pruritus, Denies erythema, Denies rash and Denies wounds Neurologic Denies confusion, Denies loss of vision and Reports weakness Psychiatric Denies anxiety, Denies confusion, Denies depression, Denies homicidal ideation and Denies suicidal ideation Endocrine Denies palpitations Hematologic/Lymphatic Denies easy bruising Allergic/Immunologic Denies wheezing [facility] Medical History Hyperlipidemia (Chronic) Essential hypertension (Chronic 01/03/15) Gastroesophageal reflux disease (Chronic 01/03/15) Alcoholic cirrhosis of liver with ascites (Chronic 01/03/15) Coronary artery disease involving [place] coronary artery of [place] heart with unstable angina pectoris (Chronic 01/03/15) Esophageal varices in alcoholic cirrhosis (Acute 01/03/15) Alcohol abuse (Chronic) Coronary artery disease (Chronic) Duodenal ulcer (Chronic) GERD (gastroesophageal reflux disease) (Chronic) Hepatic cirrhosis (Chronic) Anemia (Resolved) Bleeding esophageal varices (Resolved 12/2014) Chronic alcoholic gastritis with hemorrhage (Resolved 08/17/16) Upper GI bleed (Resolved 12/2014) Surgical History Hx of cardiac catheterization (Resolved 12/2014) Social History household members: spouse Smoking Status: Current every day smoker alcohol intake: current substance use type: marijuana Social History household members: spouse Smoking Status: Current every day smoker alcohol intake: current substance use type: marijuana Exam Narrative Exam Narrative: GENERAL: 63-year-old male appears unwell, pale and weak HEAD: Atraumatic. Normocephalic. No temporal or scalp tenderness. EYES: Pupils equal round and reactive. Extraocular motions intact. No scleral icterus. No injection or drainage. ENT: Poor dentition throughout Nose without bleeding, purulent drainage or septal hematoma. Throat without erythema, tonsillar hypertrophy or exudate. Uvula midline. Airway patent. NECK: Trachea midline. No JVD or lymphadenopathy. Supple, nontender, no meningeal signs. CARDIOVASCULAR: Regular rate and rhythm without murmurs, gallops, or rubs. RESPIRATORY: Clear to auscultation. Breath sounds equal bilaterally. No wheezes, rales, or rhonchi. GASTROINTESTINAL: Abdomen soft, epigastric tender, nondistended. No hepato-splenomegaly, or palpable masses. No guarding. EXTREMITIES: No clubbing, cyanosis, or edema. No joint tenderness, effusion, or edema noted. BACK: Nontender without deformity or crepitance. No flank tenderness. NEURO: AOx3. SKIN: No rash or erythema. Initial Vital Signs Initial Vital Signs: Vital Signs Temperature 98.2 F 10/21/18 13:43 Pulse Rate 109 H 10/21/18 13:43 Respiratory Rate 18 10/21/18 13:43 Blood Pressure 138/60 10/21/18 13:43 Pulse Oximetry 98 10/21/18 13:43 Course Orders Ordered: Discontinued Medications Octreotide Acetate 500 mcg/ (Sodium Chloride) 101 mls @ 5.05 mls/hr IV CONT MAREK Last Infusion: 10/21/18 15:34 Dose: 25 mcg/hr, 5.05 mls/hr Admin: 10/21/18 14:21 Dose: 25 mcg/hr, 5.05 mls/hr Pantoprazole Sodium 80 mg/ (Sodium Chloride) 100 mls @ 10 mls/hr IV CONT MAREK Last Infusion: 10/21/18 15:35 Dose: 0 mg/hr, 0 mls/hr Admin: 10/21/18 14:21 Dose: 8 mg/hr, 10 mls/hr Sodium Chloride (Normal Saline 0.9%) 1,000 mls @ 100 mls/hr IV CONT MAREK Last Infusion: 10/21/18 16:51 Dose: 100 mls/hr Admin: 10/21/18 14:27 Dose: 100 mls/hr Octreotide Acetate (Sandostatin) 50 mcg IV NOW ONE Stop: 10/21/18 13:41 Last Admin: 10/21/18 14:20 Dose: 50 mcg Ondansetron HCl (Zofran) 4 mg IV NOW ONE Stop: 10/21/18 13:41 Last Admin: 10/21/18 14:23 Dose: 4 mg Pantoprazole Sodium (Protonix) 80 mg IV NOW ONE Stop: 10/21/18 13:41 Last Admin: 10/21/18 14:21 Dose: 80 mg Reevaluation(s) Reevaluation #1: Called to see patient at bedside, 500mL bright red blood in emesis bag Consultations Consultation #1: call to GI at [facility] ([place]) happy to consult, recommend admit to hospitalist Consultation #2: hospitalist at [facility] happy to accept Vital Signs - 8 hr 10/21/18 13:43 10/21/18 14:30 10/21/18 15:00 Temperature 98.2 F Pulse Rate 109 H 103 H 102 H Respiratory Rate 18 15 13 Blood Pressure [Left Arm] 138/60 93/56 L 109/51 L Pulse Oximetry 98 96 95 10/21/18 15:45 10/21/18 16:12 Temperature Pulse Rate 100 H 100 H Respiratory Rate 20 20 Blood Pressure [Left Arm] 115/50 L 117/49 L Pulse Oximetry 98 MDM - GI Bleed Lab Data Result diagrams: 10/21/18 13:50 10/21/18 13:50 Lab Results 10/21/18 10/21/18 10/21/18 Range/Units 13:50 13:50 13:50 WBC 10.4 (4.5-11.0) X10^3/uL RBC 3.05 L (4.5-5.9) X10^6/uL Hgb 9.7 L (13.5-17.5) g/dL Hct 29.3 L (41-53) % MCV 95.9 (80-100) fL MCH 31.8 (26-34) PG MCHC 33.2 (30-36) % RDW 19.8 H (11.6-14.8) % Plt Count 207 (150-400) X10^3/uL Neut % (Auto) 84.2 H (50-75) % Lymph % (Auto) 1.8 L (25-40) % [place] % (Auto) 11.5 (3-14) % Eos % (Auto) 0.8 L (2-4) % Baso % (Auto) 1.7 (0-2) % Neut # (Auto) 8800 H (3802-6905) /uL Lymph # (Auto) 200 L (9333-8379) /uL [place] # (Auto) 1200 H (0-900) /uL Eos # (Auto) 100 (0-450) /uL Baso # (Auto) 200 H (0-100) /uL PT 16.7 H (10.1-12.7) SECONDS INR 1.4 H (0.9-1.3) APTT 35 D (26.4-36.2) SECONDS Sodium 128 L (137-145) mmol/L Potassium 4.7 (3.4-5.1) mmol/L Chloride 90 L (98-107) mmol/L Carbon Dioxide 24 (22-32) mmol/L BUN 20 (9-20) mg/dL Creatinine 1.30 H (0.66-1.25) mg/dL Estimated GFR 55.4 L (>60) mL/min BUN/Creatinine Ratio 15.4 (6-22) Glucose 156 H (80-110) mg/dL Calcium 7.9 L (8.4-10.2) mg/dL Total Bilirubin 3.6 H (0.2-1.3) mg/dL AST 146 H (17-59) IU/L ALT 51 (21-72) IU/L Alkaline Phosphatase 309 H (38-126) U/L Total Protein 6.9 (6.3-8.2) g/dL Albumin 3.2 L (3.5-5.0) g/dL Globulin 3.7 (1.7-4.1) g/dL Albumin/Globulin Ratio 0.9 L (1.0-2.8) Blood Type Antibody Screen 10/21/18 Range/Units 13:50 WBC (4.5-11.0) X10^3/uL RBC (4.5-5.9) X10^6/uL Hgb (13.5-17.5) g/dL Hct (41-53) % MCV (80-100) fL MCH (26-34) PG MCHC (30-36) % RDW (11.6-14.8) % Plt Count (150-400) X10^3/uL Neut % (Auto) (50-75) % Lymph % (Auto) (25-40) % [place] % (Auto) (3-14) % Eos % (Auto) (2-4) % Baso % (Auto) (0-2) % Neut # (Auto) (6182-3036) /uL Lymph # (Auto) (2542-5953) /uL [place] # (Auto) (0-900) /uL Eos # (Auto) (0-450) /uL Baso # (Auto) (0-100) /uL PT (10.1-12.7) SECONDS INR (0.9-1.3) APTT (26.4-36.2) SECONDS Sodium (137-145) mmol/L Potassium (3.4-5.1) mmol/L Chloride (98-107) mmol/L Carbon Dioxide (22-32) mmol/L BUN (9-20) mg/dL Creatinine (0.66-1.25) mg/dL Estimated GFR (>60) mL/min BUN/Creatinine Ratio (6-22) Glucose (80-110) mg/dL Calcium (8.4-10.2) mg/dL Total Bilirubin (0.2-1.3) mg/dL AST (17-59) IU/L ALT (21-72) IU/L Alkaline Phosphatase (38-126) U/L Total Protein (6.3-8.2) g/dL Albumin (3.5-5.0) g/dL Globulin (1.7-4.1) g/dL Albumin/Globulin Ratio (1.0-2.8) Blood Type O Positive Antibody Screen Negative Critical Care Time Critical Care Time: Yes Total Critical Care Time: 30 Attestation: The high probability of a clinically significant, sudden or life threatening deterioration of the [Gi/CV] system(s) required my full and direct attention, intervention and personal management. The aggregate critical care time was [30] minutes. This time is in addition to time spent performing reported procedures but includes the following: [x] Data Review and interpretation [x] Patient assessment and monitoring of vital signs [x] Documentation [x] Medication orders and management Discharge Plan Departure Patient Disposition: [facility] Clinical Impression: Acute upper gastrointestinal bleeding Discharge Date/Time: 10/21/18 16:44 Interventions: ED Discharge Assessment Last Done: 10/21/18 16:43 Prescriptions: No Action atorvastatin 40 mg tablet 40 mg PO HS Qty: 30 RF: 11 ferrous sulfate [Iron (ferrous sulfate)] 325 MG tablet 325 mg PO BID Qty: 0 RF: 0 aspirin 81 MG tablet,delayed release (DR/EC) 2 tab PO BID Qty: 0 RF: 0 lactulose 10 gram/15 mL solution 15 ml PO TID Qty: 473 RF: 5 nitroglycerin 400 mcg/spray aerosol,spray 0.4 mg SL Q5M PRN (Reason: chest pain) Qty: 4.1 RF: 3 isosorbide mononitrate 30 mg tablet extended release 24 hr 30 mg PO QAM Qty: 90 RF: 1 Combivent Respimat 20-100 mcg/actuation mist 1 puff INHALATION QID Qty: 4 RF: 11 nitroglycerin [Nitrostat] 0.4 mg tablet, sublingual 0.4 mg Sublingual Q DAY PRN PRN (Reason: chest pain) Qty: 30 RF: 4 propranolol 20 mg tablet 20 mg PO BID Qty: 60 RF: 11 spironolactone 100 mg tablet 200 mg PO Q DAY Qty: 180 RF: 1 Referrals: Tristan Leija MD [Primary Care Provider] -
[2018-10-21 13:43] VITALS: BP 138/60; PULSE 109; RESP 18; TEMP 36.8; O2SAT 98
[2018-10-21 14:06] LABS: Add Manual Diff / Slide Review NO; Basophils Absolute Auto 200 /uL (0-100); Basophils Percent Auto 1.7 % (0-2); Eosinophils Absolute Auto 100 /uL (0-450); Eosinophils Percent Auto 0.8 % (2-4); Hematocrit 29.3 % (41-53); Hemoglobin 9.7 g/dL (13.5-17.5); Lymphocytes Absolute Auto 200 /uL (1100-4500); Lymphocytes Percent Auto 1.8 % (25-40); Mean Corpuscular HGB Conc 33.2 % (30-36); Mean Corpuscular Hemoglobin 31.8 PG (26-34); Mean Corpuscular Volume 95.9 fL (80-100); Monocytes Absolute Auto 1200 /uL (0-900); Monocytes Percent Auto 11.5 % (3-14); Neutrophils Absolute Auto 8800 /uL (1500-7000); Neutrophils Percent Auto 84.2 % (50-75); Platelet Count 207 X10^3/uL (150-400); Red Blood Cell Count 3.05 X10^6/uL (4.5-5.9); Red Cell Distribution Width 19.8 % (11.6-14.8); White Blood Cell Count 10.4 X10^3/uL (4.5-11.0)
[2018-10-21 14:15] LABS: INR 1.4 (0.9-1.3); Prothrombin Time 16.7 SECONDS (10.1-12.7)
[2018-10-21 14:17] LABS: PTT Partial Thromboplastin Tim 35 SECONDS (26.4-36.2)
[2018-10-21 14:18] LABS: Alanine Aminotransferase 51 IU/L (21-72); Albumin 3.2 g/dL (3.5-5.0); Albumin Globulin Ratio 0.9 (1.0-2.8); Alkaline Phosphatase 309 U/L (38-126); Aspartate Aminotransferase 146 IU/L (17-59); BUN Creatinine Ratio 15.4 (6-22); Bilirubin Total 3.6 mg/dL (0.2-1.3); Blood Urea Nitrogen 20 mg/dL (9-20); Calcium 7.9 mg/dL (8.4-10.2); Carbon Dioxide 24 mmol/L (22-32); Chloride 90 mmol/L (98-107); Estimated Glomerular Filt Rate 55.4 mL/min (>60); Globulin 3.7 g/dL (1.7-4.1); Glucose 156 mg/dL (80-110); HEMOLYSIS 37 (0-50); Potassium 4.7 mmol/L (3.4-5.1); Sodium 128 mmol/L (137-145); Total Protein 6.9 g/dL (6.3-8.2)
[2018-10-21] MEDS: OCTREOTIDE 100 MCG/ML VIAL 50 MCG IV (14:20)
[2018-10-21] MEDS: PANTOPRAZOLE 40 MG VIAL 80 MG IV (14:21)
[2018-10-21] MEDS: OCTREOTIDE 500 MCG in SODIUM CHLORIDE 0.9% 100 ML 5.05 ML IV (14:21)
[2018-10-21] MEDS: PANTOPRAZOLE 80 MG in SODIUM CHLORIDE 0.9% 100 ML 10 ML IV (14:21)
[2018-10-21] MEDS: ONDANSETRON 4 MG/2 ML INJ IV (14:23)
[2018-10-21] MEDS: SODIUM CHLORIDE 0.9% 1,000 ML 100 ML IV (14:27)
[2018-10-21 14:30] VITALS: BP 93/56; PULSE 103; RESP 15; O2SAT 96
[2018-10-21 15:00] VITALS: BP 109/51; PULSE 102; RESP 13; O2SAT 95
[2018-10-21 15:45] VITALS: BP 115/50; PULSE 100; RESP 20; O2SAT 98
[2018-10-21 16:12] VITALS: BP 117/49; PULSE 100; RESP 20
== END 2018-10-21 16:44 | disposition short-term general hospital (02) ==
PROVIDERS: Emergency Provider Emergency Medicine; PCP Student in an Organized Health Care Education/Training Program
DX: K92.2 Gastrointestinal hemorrhage, unspecified (principal); R10.13 Epigastric pain
CPT/HCPCS: 36415; 36591; 80053; 85025; 85610; 85730; 86850; 86900; 86901; 93005; 93010; 96361; 96365; 96368; 96375; 96376; 99284; 99285; C9113; J2354; J2405

== ENCOUNTER → 2018-11-07 15:43 | Oncology outpatient (ONC) | payer MEDICARE, SELFPAY ==
[2018-10-24 13:45] VITALS: BMI 21.8
[2018-11-07] MEDS: ALBUMIN HUMAN 25 GM/100 ML VIAL IV (16:25)
== END ==
PROVIDERS: PCP Student in an Organized Health Care Education/Training Program; Visit Provider Student in an Organized Health Care Education/Training Program
DX: R18.8 Other ascites (principal)
CPT/HCPCS: 36415; 80053; 84134; 85025; 85610; 96365; 96366; P9041

== ENCOUNTER → 2018-11-07 16:00 | Outpatient (CLI) | payer MEDICARE, SELFPAY ==
[2018-10-24 13:45] VITALS: BMI 21.8
== END ==
PROVIDERS: PCP Student in an Organized Health Care Education/Training Program; Visit Provider Student in an Organized Health Care Education/Training Program
DX: R18.8 Other ascites (principal)
CPT/HCPCS: 80053; 84134; 85025; 85610